=== PATIENT | male | born 1935 | race Caucasian/White ===

== ENCOUNTER 2016-07-29 13:07 | Emergency (ER) | payer OTHER, MEDICARE ==
[~2016-07-29] VITALS: Ht 182.9 cm; Wt 90.7 kg
[~2016-07-29 13:07] MED LIST: AMLODIPINE BES2.5 M1 PO; ASPIRIN EC81 M1 PO; BACTRIM DS TAB1 EACH PO; DEXTROAMP-AMPHE10 MG PO; LORAZEPAM0.5 M1 PO; METOPROLOL SUCC25 M1 PO; PRAVASTATIN SOD40 M2 PO; TAMSULOSIN HCL0.4 M1 PO; VENLAFAXINE HCL75 M1 PO; ZYPREXA2.5 M1 PO; [UNRECOGNIZED DRUG - OTHER] PO
--- NOTE | 2016-07-29 13:30 | ED GENERAL ADULT ---
History of Present Illness General Chief Complaint: Psychiatric Related Complaint Stated Complaint: BIBA FOR PSYCH EVAL Source: patient Exam Limitations: clinical condition, poor historian Vital Signs & Intake/Output Vital Signs & Intake/Output Vital Signs Date Time Temp Pulse Resp B/P Pulse O2 O2 Flow FiO2 Ox Delivery Rate 07/30 0858 97.0 79 18 117/56 95 Room Air 07/30 0610 97.0 93 18 110/70 94 Room Air 07/30 0147 98.9 79 20 132/66 94 Room Air 07/29 2321 99.4 75 20 174/99 95 Room Air 07/29 2003 98.2 79 18 149/74 96 Room Air 07/29 1637 97.8 78 18 144/82 96 Room Air 07/29 1312 98.6 62 18 132/68 97 Room Air ED Intake and Output 07/30 0000 07/29 1200 Intake Total 0 Output Total Balance 0 Intake, Oral 0 Patient 200 lb Weight Allergies Coded Allergies: No Known Allergies (11/30/15) Triage Note: BIBA FROM HOME, PER EMS AND PD, PT IS DEPRESSED, STATES, "I WANT TO KILL MYSELF". "I DONT WANT TO LUVE". REFUSES TO ANSWER QUESTIONS AT THIS TIME. LAYING ON STRETCHER IN POSITION WITH EYES CLOSED. PER EMS PT HAS NOT BEEN TAKING HIS MEDICATIONS FOR THE PAST FEW DAYS. PT CONFIRMS THIS. PLACED ON A PEER BY SERGIO HINSON. Triage Nurses Notes Reviewed? yes Onset: Abrupt Duration: unknown duration Injury Environment: home No Modifying Factors: none HPI: 80-year-old male brought in by ambulance from home for increased failure to thrive depression and suicidal ideation. Patient does not offer much information at all. Patient is laying on the stretcher and refusing to answer certain basic questions. Patient did say that he had some thoughts of wanting to hurt himself. No plan. Patient has been feeling depressed. Patient denies any pain. Specifically patient denies any nausea vomiting abdominal pain chest pain shortness of breath. (CANDELARIO CORDOBA) Reconcile Medications Amlodipine Besylate 2.5 MG TABLET 1 TAB PO DAILY HTN (Reported) Aspirin (Ecotrin*) 81 MG TABLET.DR 1 TAB PO DAILY HEART/BLOOD (Reported) Lorazepam 0.5 MG TABLET 1 TAB PO TIDPRN PRN ANXIETY (Reported) Metoprolol Succinate 25 MG TAB 1 TAB PO DAILY HEART/BP (Reported) Olanzapine (Zyprexa) 2.5 MG TABLET 1 TAB PO QPM MOOD D/O (Reported) Pravastatin Sodium 40 MG TABLET 1 TAB PO DAILY CHOLESTEROL (Reported) Tamsulosin HCl 0.4 MG CAP.ER.24H 1 CAP PO DAILY BPH (Reported) Venlafaxine HCl (Venlafaxine HCl ER) 75 MG CAP.ER.24H 1 CAP PO DAILY MENTAL HEALTH (Reported) (ERWIN GREEN,CESAR) Past History Travel History Traveled to [place] past 21 day No Medical History Any Pertinent Medical History? see below for history Cardiovascular: CHF, hypertension, HIGH CHOLESTEROL Renal: chronic kidney disease Psychiatric: MDD BIPOLAR? History of MRSA: No History of VRE: No History of CDIFF: No Surgical History Surgical History: CARDIAC STENT Psychosocial History Who do you live with Spouse Services at Home None What is your primary language Sinhala Tobacco Use: Never used ETOH Use: denies use Family History Hx Contributory? No (CANDELARIO CORDOBA) Review of Systems Review of Systems Constitutional: Reports: no symptoms. EENTM: Reports: no symptoms. Respiratory: Reports: no symptoms. Cardiovascular: Reports: no symptoms. GI: Reports: no symptoms. Genitourinary: Reports: no symptoms. Musculoskeletal: Reports: no symptoms. Skin: Reports: no symptoms. Neurological/Psychological: Reports: see HPI. Hematologic/Endocrine: Reports: no symptoms. Immunologic/Allergic: Reports: no symptoms. All Other Systems: Reviewed and Negative (CANDELARIO CORDOBA) Physical Exam Physical Exam General Appearance: no apparent distress, awake Head: atraumatic Eyes: Bilateral: normal appearance, EOMI. Ears, Nose, Throat: normal pharynx, normal ENT inspection, hearing grossly normal Neck: normal inspection Respiratory: normal breath sounds, no respiratory distress Cardiovascular: regular rate/rhythm Gastrointestinal: soft, non-tender Back: normal inspection Extremities: normal inspection, normal range of motion Neurologic/Psych: awake, alert, depressed affect Skin: intact, normal color Core Measures ACS in differential dx? No CVA/TIA Diagnosis: No Severe Sepsis Present: No Septic Shock Present: No (CANDELARIO CORDOBA) Progress Differential Diagnoses I considered the following diagnoses in my evaluation of the patient: Depression, anxiety, bipolar, psychosis, acute renal failure, , [place], sepsis, UTI, Plan of Care: Orders Procedure Date/time Status Heart Healthy Diet 07/30 B Active Add-on Test (ER Only) 07/29 1452 Active URINE DRUGS OF ABUSE 07/29 1452 Complete ED CRISIS PSYCH CONSULT 07/29 1452 Active ETHANOL 07/29 1404 Complete Continuous Observation Monitor 07/29 1329 Active URINALYSIS 07/29 1329 Complete TROPONIN LEVEL 07/29 1329 Complete COMPREHENSIVE METABOLIC PANEL 07/29 1329 Complete CBC WITHOUT DIFFERENTIAL 07/29 1329 Complete EKG 07/29 1329 Active Laboratory Tests 07/29/16 1732: Urine Opiates Screen < 100.00, Methadone Screen < 40, Barbiturate Screen < 60, Ur Phencyclidine Scrn < 6.00, Amphetamines Screen < 100, U Benzodiazepines Scrn < 85, Urine Cocaine Screen < 50, Urine Cannabis Screen < 5.00, Urine Color YEL, Urine Clarity CLEAR, Urine pH 6.0, Ur Specific [place] 1.020, Urine Protein TRACE H, Urine Ketones NEG, Urine Nitrite NEG, Urine Bilirubin NEG, Urine Urobilinogen 0.2, Ur Leukocyte Esterase NEG, Ur Microscopic SEDIMENT EXAMINED, Urine RBC RARE, Urine WBC RARE, Ur Epithelial Cells RARE, Urine Hemoglobin NEG, Urine Glucose NEG 07/29/16 1404: Anion Gap 7, Estimated GFR 42 L, BUN/Creatinine Ratio 15.0, Glucose 119 H, Calcium 9.0, Total Bilirubin 0.7, AST 26, ALT 39, Alkaline Phosphatase 80, Troponin I < 0.01, Total Protein 6.4, Albumin 3.6, Globulin 2.8, Albumin/ Globulin Ratio 1.3, CBC w Diff NO MAN DIFF REQ, RBC 4.33 L, MCV 88.5, MCH 29.7, RDW 13.4, MPV 8.4, Gran % 65.4, Lymphocytes % 23.0, Monocytes % 7.1, Eosinophils % 3.9, Basophils % 0.6, Absolute Granulocytes 3.8, Absolute Lymphocytes 1.3, Absolute Monocytes 0.4, Absolute Eosinophils 0.2, Absolute Basophils 0, PUBS MCHC 33.6, Serum Alcohol < 10.0 Initial ED EKG: normal p-waves, normal sinus rhythm, rate (77) Hand-Off Endorsed To: CESAR HOOD MD Endorsed Time: 2344 (CANDELARIO CORDOBA) Hand-Off Endorsed To: STACIE MIKE MD Endorsed Time: 0700 Pending: consult (CRISIS) (ERWIN GREEN,CESAR) Comments: Cleared by psychiatry for discharge (STACIE MIKE MD) Departure Departure Clinical Impression Primary Impression: Major depression Secondary Impressions: Suicidal ideation Referrals: Gregg LOPEZ MD (PCP/Family) Departure Forms: Customer Survey General Discharge Information (CANDELARIO CORDOBA) Departure Time of Disposition: 1040 Disposition: HOME OR SELF CARE Condition: Stable Additional Instructions: Follow up with the recommendations of the tension worker (STACIE MIKE MD) Critical Care Note Critical Care Note Critical Care Time: non-applicable (CANDELARIO CORDOBA)
[2016-07-29 14:15] LABS: ABSOLUTE BASOPHIL COUNT 0 /CUMM (0.0-0.2); ABSOLUTE EOSINOPHIL COUNT 0.2 /CUMM (0.0-0.7); ABSOLUTE GRANULOCYTE CT 3.8 /CUMM (1.4-6.5); ABSOLUTE LYMPH COUNT 1.3 /CUMM (1.2-3.4); ABSOLUTE MONOCYTE COUNT 0.4 /CUMM (0.10-0.60); BASOPHIL % 0.6 % (0.0-2.0); EOSINOPHIL % 3.9 % (0-5); GRANULOCYTE % 65.4 % (42.2-75.2); HEMATOCRIT 38.3 % (42-52); MEAN CORPUSCULAR HGB 29.7 PG (27.0-31.0); MEAN CORPUSCULAR HGB CONC 33.6 G/DL (33.0-37.0); MEAN CORPUSCULAR VOLUME 88.5 FL (80.0-94.0); MEAN PLATELET VOLUME 8.4 FL (7.4-10.4); PLATELET COUNT 134 /CUMM (130-400); RBC DISTRIBUTION WIDTH 13.4 % (11.5-14.5); RED BLOOD CELL CT 4.33 /CUMM (4.70-6.10); WHITE BLOOD CELL COUNT 5.8 /CUMM (4.8-10.8)
--- NOTE | 2016-07-29 14:23 | RADIOLOGY REPORT ---
EXAMINATION: XR CHEST CLINICAL INFORMATION: Altered mental status, fever, failure to thrive. COMPARISON: Multiple priors, most recent chest radiograph dated 11/30/2015. TECHNIQUE: AP and lateral views of the chest were obtained. FINDINGS: The lungs are clear. There is mild cardiomegaly. There is no pleural effusion or pneumothorax. There are mild degenerative changes within the visualized lower thoracic spine. IMPRESSION: No acute cardiopulmonary disease. Stable mild cardiomegaly.
--- NOTE | 2016-07-29 15:26 | ED PSY CRISIS COLLATERAL NOTE ---
Collateral Note Collateral Note Family/Inform/Leslie Contacts: T/C to pts son Mario Lainez ([phone]), left a voice mail requesting a return call. T/C to pts alem Candelario who stated she lives with the pt. Ms. Candelario stated she returned home today after 2 weeks in the hospital and found the pt lying in bed. Ms. Candelario stated the pt would not respond to questions and would not move so she called 911. Ms. Candelario stated the pt is severely depressed but she is not aware of any SI. Ms. Candelario stated the pts daughter visited the pt yesterday. T/C to the pts daughter Charmaine Munoz at [phone], left a voice mail requesting a return call. Tried the pts daughter at [phone], no answer and the mailbox is full.
--- NOTE | 2016-07-29 22:58 | ED PSY CRISIS COLLATERAL NOTE ---
Collateral Note Collateral Note Family/Inform/Leslie Contacts: Phone contact with Charmaine [phone]. She reports the pt has a long psychiatric history of severe depression. "For the past two weeks, I've seen my father everyday" "he is not functiioning". However, Ms. Munoz reports her father has never made an attempt to kill himself. She state he is very depressed and has been in multiple inpatient hospitals over the years and has had Electroshock therapy treatments. Ms. Munoz is requesting that the pt be admitted for inpatient psychiatric treatment. Ms. Munoz got very angry that her father was not seen today for an evaluation.
--- NOTE | 2016-07-30 10:17 | ED PSYCH CRISIS CONSULTATION ---
Crisis Consult Basic Assessment Date of Consult: 07/30/16 Responsible Person/Accompanied By: self Insurance Authorization: Insurance #1: Insurance name: MEDICARE A Phone number: Policy number: [id number] Group number: Authorization number: ED Provider: Patient's ED Provider: CANDELARIO CORDOBA Primary Care Physician: Patient's PCP: Gregg LOPEZ MD PCP's Current Psychiatrist: Dr. Trip Smith Chief Complaint: Psychiatric Related Complaint Patient's Quote: "These pills tire me out, I want to get off them" Present Illness: Pt. was a 80 year old caucausian male who was brought to the ED by family members who were concerned for his well being when he would not get out of bed. Pt. was unclear on what day it was or what day he was brought here. He stated several times "I have been here since Sunday, no Sunday, no Sunday". Pt. arrived at the ED on Sunday afternoon. Pt. appeared to have some symtpoms of dementia. Pt.'s major complaint was his "pills" causing him to feel sleepy much of the time. He reported psychiatric treatment with Dr. Trip Smith in [place], [place], who he sees "once every 4-5 weeks for therapy and medication management". Pt. was unsure of his next scheduled appointment. Pt. denied any past or current SI, stating that "sometimes he thinks about killing himself when he realizes he has to take meds and doesn't want to". Pt. requested "a shave" from ED staff and was told that he would have to wait until he went home to [facility]. Patient's Address: [address] [place] [address] Other Who Do You Live With? Spouse Family/Informants Interviewed: See Collateral Notes Allergies - Coded Allergies: No Known Allergies (11/30/15) Current Medications - Scheduled Medications Amlodipine Besylate 2.5 MG TABLET 1 TAB PO DAILY HTN #30 (Reported) Entered as Reported by JONES CHANG MD on 02/21/16 0009 Aspirin (Ecotrin*) 81 MG TABLET.DR 1 TAB PO DAILY HEART/BLOOD (Reported) Entered as Reported by RENETTA MADERA on 11/30/151937 Metoprolol Succinate 25 MG TAB 1 TAB PO DAILY HEART/BP #30 (Reported) Entered as Reported by RENETTA MADERA on 11/30/151935 Olanzapine (Zyprexa) 2.5 MG TABLET 1 TAB PO QPM MOOD D/O #30 (Reported) Entered as Reported by JONES CHANG MD on 02/21/169 Pravastatin Sodium 40 MG TABLET 1 TAB PO DAILY CHOLESTEROL #30 (Reported) Entered as Reported by RENETTA MADERA on 11/30/151936 Tamsulosin HCl 0.4 MG CAP.ER.24H 1 CAP PO DAILY BPH #90 (Reported) Entered as Reported by JONES CHANG MD on 02/21/169 Venlafaxine HCl (Venlafaxine HCl ER) 75 MG CAP.ER.24H 1 CAP PO DAILY MENTAL HEALTH #30 (Reported) Entered as Reported by RENETTA MADERA on 11/30/151935 Scheduled PRN Medications Lorazepam 0.5 MG TABLET 1 TAB PO TIDPRN PRN ANXIETY #30 (Reported) Entered as Reported by RENETTA MADERA on 11/30/151935 Laboratory Results: Laboratory Tests 07/29/16 1732: Urine Opiates Screen < 100.00, Methadone Screen < 40, Barbiturate Screen < 60, Ur Phencyclidine Scrn < 6.00, Amphetamines Screen < 100, U Benzodiazepines Scrn < 85, Urine Cocaine Screen < 50, Urine Cannabis Screen < 5.00, Urine Color YEL, Urine Clarity CLEAR, Urine pH 6.0, Ur Specific [place] 1.020, Urine Protein TRACE H, Urine Ketones NEG, Urine Nitrite NEG, Urine Bilirubin NEG, Urine Urobilinogen 0.2, Ur Leukocyte Esterase NEG, Ur Microscopic SEDIMENT EXAMINED, Urine RBC RARE, Urine WBC RARE, Ur Epithelial Cells RARE, Urine Hemoglobin NEG, Urine Glucose NEG 07/29/16 1404: Anion Gap 7, Estimated GFR 42 L, BUN/Creatinine Ratio 15.0, Glucose 119 H, Calcium 9.0, Total Bilirubin 0.7, AST 26, ALT 39, Alkaline Phosphatase 80, Troponin I < 0.01, Total Protein 6.4, Albumin 3.6, Globulin 2.8, Albumin/ Globulin Ratio 1.3, CBC w Diff NO MAN DIFF REQ, RBC 4.33 L, MCV 88.5, MCH 29.7, RDW 13.4, MPV 8.4, Gran % 65.4, Lymphocytes % 23.0, Monocytes % 7.1, Eosinophils % 3.9, Basophils % 0.6, Absolute Granulocytes 3.8, Absolute Lymphocytes 1.3, Absolute Monocytes 0.4, Absolute Eosinophils 0.2, Absolute Basophils 0, PUBS MCHC 33.6, Serum Alcohol < 10.0 Past History Past Medical History Cardiovascular: CHF, hypertension, HIGH CHOLESTEROL Renal: chronic kidney disease Psychiatric: MDD BIPOLAR? Past Surgical History Surgical History: CARDIAC STENT Psychosocial History Strengths/Capabilities: Pt. has psychiatric treatment in the community Psychiatric Treatment History Psych Treatment Psychiatric Treatment Yes Inpatient Treatment Yes Outpatient Treatment Yes Location of Treatment Dr. Trip Smith, [place] Reason for Treatment Depression Dates of Treatment Various Diagnosis by History: Depression Substance Use/Abuse History Drug Use/Abuse Substances Used/Abused No Substance Abuse Treatment Substance Abuse Treatment Past Substance Abuse [place] No Current Mental Status Mental Status Orientation: Confused Affect: Flat Speech: Soft Neuro-vegetative: Concentration Poor, Energy Decreased Appearance Appearance- Dress/Hygiene: laying back in hospital gown on bed, elderly gentleman Behaviors Thought Process: Disorganized Thought Content: WNL Memory: Impaired Insight: Poor SI/HI Risk Assessment Past Suicidal Ideation/Attempts Yes Current Suicidal Ideation/Att No Past Homicidal Ideation/Att: No Current Homicidal Ideation/Attempts No Degree of Intent: Thoughts/No Intent Danger To: none currently Gravely Disabled: Lack of Insight, Poor Judgment Risk Factors: age (under 24/over 65), high anxiety/distress, history of suicide atmpts, SA/MH hospitalized, male Lethality Ratin PTSD Checklist PTSD Score: PTSD Score: Response Value Disturbing memories,thoughts,images of stressful experience? Not at all 1 Disturbing dreams of stressful experience from past? Not at all 1 Suddenly acting/feeling as if reliving stressful experience? Not at all 1 Unpleasant feeling when reminded of stressful experience? Not at all 1 Physical reactions when reminded of stressful experience? Not at all 1 Avoid thinking/talking of stressful exp. to avoid reactions? Not at all 1 Avoid activities/situations that remind of stressful exp.? Not at all 1 Trouble remembering important parts of stressful experience? Quite a bit 4 Loss of interest in things that you used to enjoy? Not at all 1 Feeling distant or cut off from other people? Not at all 1 Feeling emotionally numb/unable to love those close to you? Not at all 1 Feeling as if your future will somehow be cut short? Not at all 1 Trouble falling or staying asleep? Not at all 1 Feeling irritable or having angry outbursts? Not at all 1 Having difficulty concentrating? Not at all 1 Being super alert or watchful on guard? Not at all 1 Feeling jumpy or easily startled? Not at all 1 Total 20 ED Management Sitter: Yes Restraints: No DSM5/PS Stressors/Medical Prob Diagnosis' (DSM 5, Stressors, Medical): F32.2 Major Depressive Disorder Severe Current GAF: 30 Departure Disposition Psych Medical Clearance Date: 07/30/16 Medically Cleared at: 0945 Time Started: 0945 Time Ended: 1000 Psychiatrist Consulted: Cleo Mcbride MD Date Disposition Established: 07/30/16 Time Disposition Established: 1015 Plan for Disposition - Modality: Outpatient Facility: Patient to Arrange Rationale for Disposition: Pt. denied suicidal ideation. Is in treatment with private psychaitrist. Family is very involved in advocating for father to get appropriate treatment. Pt. has daily home health aide to assist. Will follow up with psychiatrist this week at scheduled appointment. Additional Instructions: Follow up with psychiatrist this week Referrals Gregg LOPEZ MD (PCP/Family)
--- NOTE | 2016-07-30 10:29 | ED PSY CRISIS COLLATERAL NOTE ---
Collateral Note Collateral Note Family/Inform/Leslie Contacts: Phone contact with daughter who stated family "doesn't know what to do anymore". She reported her father has been depressed since he was 41 years old. She reported he was on a good medication regimen before but when he got together with his girlfriend "she changed all his doctors and his meds". Daughter also reported that girlfriend does not normally let her into the house, but that she had been visiting her father for 2 weeks while the girlfriend was in rehab. She stated now that the girlfriend was back, her father was more depressed. She reported her father has a home health aide who visits daily and he has two doctor's appointments this week with his maintenance mechanic technician and with his psychiatrist. Daughter stated that she feels he will not act on any suicidal thoughts if sent home, but it is difficult for her to see him so depressed and in bed all the time.
[2016-07-30 11:01] VITALS: BP 132/71
== END 2016-07-30 11:57 ==
LOC: ERH 13:07
PROVIDERS: Physician Assistant Medical
DX: F32.9 Major depressive disorder, single episode, unspecified (principal); R45.851 Suicidal ideations; I10 Essential (primary) hypertension; I50.9 Heart failure, unspecified; N18.9 Chronic kidney disease, unspecified
CPT/HCPCS: 80307; 81001; 93005; 93010; G0463; G0480

== ENCOUNTER 2016-11-27 18:49 | Observation (INO) | payer OTHER, MEDICARE ==
[2016-11-27 19:10] LABS: ABSOLUTE BASOPHIL COUNT 0 /CUMM (0.0-0.2); ABSOLUTE EOSINOPHIL COUNT 0.2 /CUMM (0.0-0.7); ABSOLUTE GRANULOCYTE CT 5.4 /CUMM (1.4-6.5); ABSOLUTE LYMPH COUNT 1.2 /CUMM (1.2-3.4); ABSOLUTE MONOCYTE COUNT 0.4 /CUMM (0.10-0.60); BASOPHIL % 0.2 % (0.0-2.0); EOSINOPHIL % 2.6 % (0-5); GRANULOCYTE % 75.2 % (42.2-75.2); HEMATOCRIT 37.2 % (42-52); MEAN CORPUSCULAR HGB 29.7 PG (27.0-31.0); MEAN CORPUSCULAR HGB CONC 33.6 G/DL (33.0-37.0); MEAN CORPUSCULAR VOLUME 88.4 FL (80.0-94.0); MEAN PLATELET VOLUME 8.1 FL (7.4-10.4); PLATELET COUNT 143 /CUMM (130-400); RBC DISTRIBUTION WIDTH 13.4 % (11.5-14.5); RED BLOOD CELL CT 4.21 /CUMM (4.70-6.10); WHITE BLOOD CELL COUNT 7.2 /CUMM (4.8-10.8)
--- NOTE | 2016-11-27 19:11 | ED GI/GU/ABDOMINAL COMPLAINT ---
History of Present Illness General Chief Complaint: Nausea, Vomiting, Diarrhea Stated Complaint: N/V/D Source: patient Exam Limitations: no limitations Vital Signs & Intake/Output Vital Signs & Intake/Output Vital Signs Date Time Temp Pulse Resp B/P B/P Pulse O2 O2 Flow FiO2 Mean Ox Delivery Rate 11/28 0752 96.1 61 20 129/80 97 Room Air 11/28 0516 95.0 62 18 133/79 96 Room Air 11/27 1909 98.7 67 18 154/82 95 Room Air ED Intake and Output 11/28 0000 11/27 1200 Intake Total 500 Output Total Balance 500 Intake, IV 500 Intake, Oral 0 Allergies Coded Allergies: No Known Allergies (11/30/15) Reconcile Medications Amlodipine Besylate 2.5 MG TABLET 1 TAB PO DAILY HTN (Reported) Aspirin (Ecotrin*) 81 MG TABLET.DR 1 TAB PO DAILY HEART/BLOOD (Reported) Lorazepam 0.5 MG TABLET 1 TAB PO TIDPRN PRN ANXIETY (Reported) Metoprolol Succinate 25 MG TAB 1 TAB PO DAILY HEART/BP (Reported) Olanzapine (Zyprexa) 2.5 MG TABLET 1 TAB PO QPM MOOD D/O (Reported) Pravastatin Sodium 40 MG TABLET 1 TAB PO DAILY CHOLESTEROL (Reported) Tamsulosin HCl 0.4 MG CAP.ER.24H 1 CAP PO DAILY BPH (Reported) Venlafaxine HCl (Venlafaxine HCl ER) 75 MG CAP.ER.24H 1 CAP PO DAILY MENTAL HEALTH (Reported) Triage Nurses Notes Reviewed? yes HPI: Patient presents for evaluation of profuse diarrhea that began about noon today. Patient states the diarrhea has been nearly constant and consisting of a nonbloody watery diarrhea. He denies any associated vomiting, abdominal pain, fever, cold symptoms, recent antibiotics, dysuria, recent travel, ill contacts, medication changes or prior episodes. He denies a history of prior GI bleeds ulcerative colitis or Crohn's disease. Alcohol use is occasional with his last alcoholic beverage yesterday consisting of a "shot of wine". He denies smoking or drug use. (ALCIDES GREEN,TASH Lopez) Past History Medical History Any Pertinent Medical History? see below for history Cardiovascular: CHF, hypertension, HIGH CHOLESTEROL Renal: chronic kidney disease Psychiatric: MDD BIPOLAR? History of MRSA: No History of VRE: No History of CDIFF: No Surgical History Surgical History: CARDIAC STENT Psychosocial History Who do you live with Spouse Services at Home None What is your primary language Greek Family History Hx Contributory? No (ALCIDES GREEN,TASH Lopez) Review of Systems Review of Systems Constitutional: Reports: no symptoms. EENTM: Reports: no symptoms. Respiratory: Reports: no symptoms. Cardiovascular: Reports: no symptoms. GI: Reports: see HPI. Genitourinary: Reports: no symptoms. Musculoskeletal: Reports: no symptoms. Skin: Reports: no symptoms. Neurological/Psychological: Reports: no symptoms. Hematologic/Endocrine: Reports: no symptoms. Immunologic/Allergic: Reports: no symptoms. All Other Systems: Reviewed and Negative (ALCIDES GREEN,TASH Lopez) Physical Exam Physical Exam Gastrointestinal: see below Comments: Gen.: Well-nourished, well-developed, no acute respiratory distress. Head: Normocephalic, atraumatic. Eyes: Normal inspection bilaterally Ears: Normal inspection bilaterally Nose: Normal inspection Throat/mouth : Moist mucosa Neck: Supple, full range of motion, no goiter Heart: Regular rate and rhythm, soft systolic murmur at the left sternal border Lungs: Clear to auscultation bilaterally with normal air entry Chest: Nontender Back: Normal range of motion Abdomen: Soft, nontender, nondistended, normal bowel sounds Extremities: Normal range of motion grossly, equal radial pulses, no cyanosis clubbing or edema, calves nontender Neurologic: Cranial nerves grossly intact, speech is clear Skin: warm and dry Psychiatric: Calm, cooperative, no apparent delusions or hallucinations Core Measures ACS in differential dx? No Severe Sepsis Present: No Septic Shock Present: No (ALCIDES GREEN,TASH Lopez) Progress Differential Diagnosis: c. diff, enteritis, colitis Plan of Care: Orders Procedure Date/time Status Regular Diet 11/28 B Active Discharge Patient 11/28 0802 Active BASIC METABOLIC PANEL 11/28 0500 Complete URINE DRUG SCREEN FOR ER ONLY 11/27 230 Complete URINALYSIS 11/27 2301 Complete PT Evaluate & Treat 11/27 2253 Active Saline Lock 11/[address] in observation 11/28 2251 Active Misc Message 11/28 2251 Active ED Holding Orders 11/28 2251 Active Patient Data 11/28 2251 Active Vital Signs 11/28 2251 Active Code Status 11/28 2251 Active Add-on Test (ER Only) 05/29 1911 Active CULTURE,STOOL 11/27 1910 Active C.DIFFICILE 11/27 1910 Active Intake & Output 11/28 1907 Active THYROID STIMULATING HORMONE 11/28 1903 Complete TROPONIN LEVEL 11/27 1902 Complete COMPREHENSIVE METABOLIC PANEL 11/27 1902 Complete CBC WITHOUT DIFFERENTIAL 11/27 1902 Complete EKG 11/27 1902 Active Laboratory Tests 11/28/16 0520: Urine Opiates Screen < 100.00, Methadone Screen < 40, Barbiturate Screen < 60, Ur Phencyclidine Scrn < 6.00, Amphetamines Screen < 100, U Benzodiazepines Scrn < 85, Urine Cocaine Screen < 50, Urine Cannabis Screen < 5.00, Urine Color YEL, Urine Clarity CLEAR, Urine pH 6.0, Ur Specific [place] 1.010, Urine Protein NEG, Urine Ketones NEG, Urine Nitrite NEG, Urine Bilirubin NEG, Urine Urobilinogen 0.2, Ur Leukocyte Esterase NEG, Ur Microscopic EXAM NOT REQUIRED, Urine Hemoglobin NEG, Urine Glucose NEG 11/28/16 0515: Anion Gap 6, Estimated GFR 39 L, BUN/Creatinine Ratio 14.7, Glucose 85, Calcium 8.1 L 11/27/161903: Anion Gap 13, Estimated GFR 31 L, BUN/Creatinine Ratio 13.3, Glucose 104 H, Calcium 8.6, Total Bilirubin 0.4, AST 26, ALT 44, Alkaline Phosphatase 75, Troponin I 0.02, Total Protein 6.6, Albumin 3.9, Globulin 2.7, Albumin/Globulin Ratio 1.4, TSH 0.380, CBC w Diff NO MAN DIFF REQ, RBC 4.21 L, MCV 88.4, MCH 29.7, RDW 13.4, MPV 8.1, Gran % 75.2, Lymphocytes % 16.6 L, Monocytes % 5.4, Eosinophils % 2.6, Basophils % 0.2, Absolute Granulocytes 5.4, Absolute Lymphocytes 1.2, Absolute Monocytes 0.4, Absolute Eosinophils 0.2, Absolute Basophils 0, PUBS MCHC 33.6 Microbiology 11/27 1910 STOOL: Clostridium difficile Toxin A & B - COLB 11/27 1910 STOOL: Stool Culture - COLB Initial ED EKG: NSR, rate (67), LAFB Prior EKG: unchanged Comments: 20:35 I have updated Farhan on his test results. He now complains of a severe sharp occipital headache that began yesterday and has been constant since onset. His neck remains supple. He states he typically does not get headaches. I have ordered IV acetaminophen and a head CT scan. Patient's physical exam at this point remains unchanged. He has had no diarrhea here in the emergency department. 20:55 patient signed out to Dr. Escoto at shift microsoft exchange administrator. (ALCIDES GREEN,TASH Lopez) Hand-Off Endorsed To: CESAR HOOD MD Endorsed Time: 0700 Pending: consult, labs (BAYRON ESCOTO MD) Departure Departure Condition: Stable Clinical Impression Primary Impression: Diarrhea Referrals: Gregg LOPEZ MD (PCP/Family) Departure Forms: Customer Survey General Discharge Information (TASH MCGRATH MD) Departure Comments 11/27/16, 23:00... pt declines ct scan. PA/ALUMINUM POOL INSTALLER Co-Sign Statement Statement: ED Attending supervision documentation- [x] I saw and evaluated the patient. I have also reviewed all the pertinent lab results and diagnostic results. I agree with the findings and the plan of care as documented in the PA's/ALUMINUM POOL INSTALLER's documentation. [] I have reviewed the ED Record and agree with the PA's/ALUMINUM POOL INSTALLER's documentation. [] Additions or exceptions (if any) to the PAs/ALUMINUM POOL INSTALLER's note and plan are summarized below: [] (BAYRON ESCOTO MD) Departure Time of Disposition: 0802 Disposition: HOME OR SELF CARE Additional Instructions: Make sure to drink fluids as we discussed. Your urine should appear light yellow to clear. Make sure you follow-up with your doctor in the office. Return as needed. (CESAR HOOD MD) ED Attending Observation Initial Observation Note: I have seen and personally examined FARHAN ANGULO on 11/27/16 at 2255. I agree with the current emergency department documentation. The disposition (admission or discharge) is uncertain at this time, he needs a period of observation for the following reason(s): pt with elevated creatinine, difficulty ambulating.... will receive iv fluids overnight and then recheck bun/ cr. Case management and PT consult in AM. The ED Nurse caring for this patient has been personally informed as to what the patient is being observed for. (BAYRON ESCOTO MD) Initial Observation Note: I have seen and personally examined FARHAN ANGULO on 11/28/16 at 0728. I agree with the current emergency department documentation. The disposition (admission or discharge) is uncertain at this time, he needs a period of observation for the following reason(s): The ED Nurse caring for this patient has been personally informed as to what the patient is being observed for. Observation Re-Evaluation: I have reevaluated FARHAN ANGULO on 11/28/16 at 0728. The physical findings that support the continued need to observe this patient include [PATIENT RESTING COMFORTABLY. WILL EVALUATE AFTER EATING BREAKFAST.]. 11/28/2016 7:55:07 AM Patient awake alert and oriented. He is up and drink coffee. Refuses to eat breakfast but wanted to go home at this time. We will call his daughter. I encouraged him to drink plenty of fluids at home. Repeat creatinine is 1.7 after IV hydration. Baseline is around 1.4-1.6. (ERWIN GREEN,CESAR)
--- NOTE | 2016-11-27 19:49 | NUR ---
TRIAGE NOTE VIA JENNIFER BLACKMAN: PT BIBA FROM HOME FOR WEAKNESS, DIARRHEA, AND HEADACHE FOR 2 DAYS. PT DENIES ABD PAIN, DENES BLOOD IN STOOL. PT STATES HE HAS A HEADACHE.
--- NOTE | 2016-11-27 20:55 | NUR ---
PT MEDICATED WITH OFIRMEV PER EMAR.
--- NOTE | 2016-11-27 21:02 | NUR ---
PT TO AND FROM CAT SCAN AT THIS TIME.
--- NOTE | 2016-11-27 21:08 | CT SCAN REPORT ---
EXAMINATION: CT HEAD WITHOUT CONTRAST CLINICAL INFORMATION: Occipital headache. COMPARISON: Head CT dated 02/20/2016. TECHNIQUE: Contiguous axial imaging was performed from the skull base to vertex without intravenous administration of contrast. DLP: 643.3 mGy-cm FINDINGS: There is no evidence of acute intracranial hemorrhage or territorial infarction. No abnormal mass effect or midline shift is seen. Alan to white matter differentiation is well preserved. No extra-axial fluid collections are identified. 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 The ventricles are normal in size. Mild chronic white matter microangiopathic changes are noted with moderate diffuse parenchymal volume loss. The osseous structures and soft tissues are normal. The mastoid air cells and visualized portions of the paranasal sinuses are well aerated. IMPRESSION: No acute intracranial pathology. Mild chronic white matter microangiopathy and moderate generalized brain parenchymal volume loss.
--- NOTE | 2016-11-27 22:11 | NUR ---
PT RESTING ON STRETCHER.
--- NOTE | 2016-11-27 22:49 | NUR ---
DR HERNANDEZ AT BEDSIDE.
--- NOTE | 2016-11-27 22:52 | NUR ---
RENÉ FROM CAT SCAN AT BEDSIDE. PT REFUSING TO GO TO CAT SCAN. PT EDUCATED ON BENEFITS OF SCAN. PT CONTINUES TO REFUSE CAT SCAN. DR HERNANDEZ MADE AWARE.
--- NOTE | 2016-11-27 22:55 | NUR ---
PER DR HERNANDEZ, PT WILL BE ED OBS.
--- NOTE | 2016-11-28 00:28 | NUR ---
PT RESTING COMFORTABLY ON STRETCHER, WILL CONTINUE TO MONITOR.
--- NOTE | 2016-11-28 03:27 | NUR ---
PT CONTINUES TO REST QUIETLY ON STRETCHER. PT DENIES ANY COMPLAINTS AT THIS TIME. WILL CONTINUE TO MONITOR.
--- NOTE | 2016-11-28 04:32 | NUR ---
PT RESTING ON STRETCHER. LIGHTS IN ROOM DIMMED FOR COMFORT. WILL CONTINUE TO MONITOR.
--- NOTE | 2016-11-28 05:17 | NUR ---
APPROX 580ML CLEAR YELLOW URINE IN BEDSIDE URINAL, URINE SPECIMEN (TRIO) OBTAINED AND SENT TO LAB. BLOODWORK OBTAINED AND SENT TO LAB BY JORGE RODRIGUEZ (SST X2). VSS. PATIENT REPORTS [place] PAIN IMPROVED, DENIES PAIN AT PRESENT. PATIENT NOTED TO HAVE REMOVED GOWN FROM OWN BODY, REPORTS "I DIDN'T WANT IT ON." PATIENT NOW REPORTING, "I'M COLD." NEW GOWN APPLIED. PATIENT ASSISTED TO BEDSIDE COMMODE FOR ATTEMPT TO BM AT THIS TIME.
--- NOTE | 2016-11-28 05:41 | NUR ---
PT EXPERIENCED SMALL BOWEL MOVEMENT. PT ALSO URINATED APPROX. 300 ML OF CLEAR YELLOW URINE. PT ASSISTED TO PUT GOWN BACK ON. PT ASSISTED BACK TO BED AND REPOSITIONED. PT REQUESTS CUP OF WATER, WATER GIVEN. WILL CONTINUE TO MONITOR.
--- NOTE | 2016-11-28 07:13 | NUR ---
REPORT GIVEN TO JENNIFER CASE.
--- NOTE | 2016-11-28 07:51 | NUR ---
PT SITTING UP, DRINKING COFFEE, DECLINING BREAKFAST TRAY. STATES HE FEELS BETTER AND WOULD LIKE TO GO HOME. WILL CALL PT'S DAUGHTER.
--- NOTE | 2016-11-28 07:55 | NUR ---
SPOKE WITH PT'S DAUGHTER, SHE WILL BE HERE SHORTLY TO RIB PULLER HER DAD. PT DRESSED, SITTING UP.
--- NOTE | 2016-11-28 08:52 | NUR ---
PT CONTINUES TO AWAIT DAUGHTER FOR A RIDE HOME. RESTING ON STRETCHER. Informed waiting has been performed.
--- NOTE | 2016-11-28 09:41 | NUR ---
PT CALLED HIS DAUGHTER, NO ANSWER.
[2016-11-28 09:57] VITALS: BP 120/80
--- NOTE | 2016-11-28 09:57 | NUR ---
DAUGHTER HERE TO SENIOR ORACLE APPLICATIONS DEVELOPER HER FATHER. CLEARED FOR D/C. PT GIVEN AND VERBALIZED UNDERSTANDING OF INSTRUCTIONS. PT AMB OUT OF ED WITH DAUGHTER.
== END 2016-11-28 09:58 ==
LOC: ERH 18:49 → ERHI 22:52
PROVIDERS: Emergency Medicine; ADMIT Pediatrics
DX: F33.9 Major depressive disorder, recurrent, unspecified (principal); G20 Parkinson's disease; I13.0 Hypertensive heart and chronic kidney disease with heart failure and stage 1 through stage 4 chronic kidney disease, or unspecified chronic kidney disease; N18.9 Chronic kidney disease, unspecified; I50.9 Heart failure, unspecified; E78.00 Pure hypercholesterolemia, unspecified; R41.0 Disorientation, unspecified; R42 Dizziness and giddiness
CPT/HCPCS: 6090; 80307; 81003; 87045; 93005; 93010; 96374; G0378; J0131; J7040

== ENCOUNTER 2016-12-03 13:09 | Inpatient (IN) | payer OTHER, MEDICARE ==
[~2016-12-03] VITALS: Ht 182.9 cm; Wt 97.5 kg
--- NOTE | 2016-12-03 13:18 | NUR ---
SEEN BY DR MIKE. WHEN ASKED WHY HE CAME IN, STATES "I WAS DISORIENTED, I DIDN'T KNOW WHERE I WAS." WHEN ASKED WHERE HE WAS WHEN HE FELT THIS WAY HE STATES "I WAS AT HOME." SR 70S ON MONITOR. DENIES CP/SOB/N/V/D/FEVERS/FALLS/TRAUMA.
--- NOTE | 2016-12-03 13:18 | NUR ---
BIBA FROM HOME C/O "FEELING DISORIENTED" XMONTHS PER PT, PER EMS FAMILY STATING 2-3 DAYS OF "CONFUSION." PT C/O DISORIENTATION BUT ANSWERED QUESTIONS APPROPRIATLY/FOLLOWED COMMANDS FOR EMS AND ON ARRIVAL WITHOUT ANY DISORIENTATION. NO NEURO DEFECITS, C/O INTERMITTANT DIZZINESS, C/O HEADACHE AND ASKING LIGHTS BE TURNED OFF.
--- NOTE | 2016-12-03 13:35 | NUR ---
PCXR DONE, BLOOD SENT (SST/LAV/BLUE/REAL), PT TO CT ON STRETCHER. SCOP PATCH APPLIED BEHIND RIGHT EAR. PT MAKING CASUAL CONVERSATION WITH PUBLIC SPEAKING PROFESSOR, DISCUSSING HIS BACKGROUND.
[2016-12-03] MEDS ORDERED: AMLODIPINE BESY10 M1 PO (13:38)
[2016-12-03] MEDS ORDERED: HYDRALAZINE HCL25 M1 PO (13:40)
[2016-12-03] MEDS ORDERED: FUROSEMIDE20 M1 PO (13:40)
[2016-12-03] MEDS ORDERED: DIOVAN40 MG PO (13:41)
--- NOTE | 2016-12-03 13:50 | NUR ---
RETURNED FROM CT, RESTING ON STRETCHER, NO COMPLAINTS. AWAITING RESULTS.
[2016-12-03 14:05] LABS: ABSOLUTE BASOPHIL COUNT 0 /CUMM (0.0-0.2); ABSOLUTE EOSINOPHIL COUNT 0.2 /CUMM (0.0-0.7); ABSOLUTE GRANULOCYTE CT 3.7 /CUMM (1.4-6.5); ABSOLUTE LYMPH COUNT 1.4 /CUMM (1.2-3.4); ABSOLUTE MONOCYTE COUNT 0.3 /CUMM (0.10-0.60); BASOPHIL % 0.3 % (0.0-2.0); EOSINOPHIL % 3.4 % (0-5); GRANULOCYTE % 66.2 % (42.2-75.2); HEMATOCRIT 38.1 % (42-52); MEAN CORPUSCULAR HGB 29.5 PG (27.0-31.0); MEAN CORPUSCULAR VOLUME 89.4 FL (80.0-94.0); MEAN PLATELET VOLUME 8.6 FL (7.4-10.4); PLATELET COUNT 133 /CUMM (130-400); RBC DISTRIBUTION WIDTH 13.7 % (11.5-14.5); RED BLOOD CELL CT 4.26 /CUMM (4.70-6.10); WHITE BLOOD CELL COUNT 5.6 /CUMM (4.8-10.8)
--- NOTE | 2016-12-03 14:13 | CT SCAN REPORT ---
EXAMINATION: CT HEAD WITHOUT CONTRAST CLINICAL INFORMATION: CVA, dizziness, confusion COMPARISON: 11/27/2016 CT scan of head TECHNIQUE: Contiguous axial imaging was performed from the skull base to vertex without intravenous administration of contrast. DLP: 620.91 mGy-cm FINDINGS: There is no evidence of acute intracranial hemorrhage or territorial infarction. No abnormal mass effect or midline shift is seen. Alan to white matter differentiation is well preserved. No extra-axial fluid collections are identified. The ventricles are normal in size. 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 There are scattered bilateral deep white matter hypodensities, could represent chronic ischemic changes of small vessel disease. Atherosclerotic calcifications of the cavernous parts of internal carotid arteries and intracranial parts of vertebral arteries noted. The osseous structures and soft tissues are normal. The mastoid air cells and visualized portions of the paranasal sinuses are well aerated. Prior right cataract surgery. IMPRESSION: No acute intracranial pathology. Chronic ischemic changes of microangiopathy. Atherosclerosis.
--- NOTE | 2016-12-03 14:22 | NUR ---
CALL TO XRAY REGARDING XRAY NOT PENDING WHEN TAKEN 1 HOUR AGO; XRAY BEING SENT TO RADIOLOGIST NOW.
--- NOTE | 2016-12-03 14:40 | ED AMS/SEIZURE/WEAK/DIZZY ---
See Addendum History of Present Illness General Chief Complaint: Neuro Symptoms/ Deficit Stated Complaint: BIBA, ?STROKE? Source: patient, old records, EMS Exam Limitations: no limitations Vital Signs & Intake/Output Vital Signs & Intake/Output Vital Signs Date Time Temp Pulse Resp B/P B/P Pulse O2 O2 Flow FiO2 Mean Ox Delivery Rate 12/03 2208 96.5 71 16 168/71 97 Room Air 12/03 1955 96.6 71 20 149/73 96 Room Air 12/03 1750 148/86 12/03 1747 95.9 68 20 184/94 98 Room Air / 1525 97.4 69 18 161/87 97 Room Air 12/03 1336 95 12/03 1310 96.5 83 17 151/86 95 Room Air Allergies Coded Allergies: No Known Allergies (11/30/15) Reconcile Medications Amlodipine Besylate 10 MG TABLET 1 TAB PO DAILY HTN (Reported) Aspirin (Ecotrin*) 81 MG TABLET.DR 1 TAB PO DAILY HEART/BLOOD (Reported) Furosemide 20 MG TABLET 1 TAB PO DAILY HEART (Reported) Hydralazine HCl 25 MG TABLET 1 TAB PO BID HTN (Reported) Metoprolol Succinate 25 MG TAB 1 TAB PO DAILY HEART/BP (Reported) Pravastatin Sodium 40 MG TABLET 1 TAB PO DAILY CHOLESTEROL (Reported) Scopolamine Hydrobromide (Transderm-Scop) 1.5MG/3DAY PATCH.TD.3 1 PAT TOP Q3D PRN vertigo apply to the hairless area behind 1 ear Tamsulosin HCl 0.4 MG CAP.ER.24H 2 CAP PO QPM BPH (Reported) Valsartan (Diovan) 40 MG TABLET 1 TAB PO DAILY HEART (Reported) Venlafaxine HCl (Venlafaxine HCl ER) 75 MG CAP.ER.24H 2 CAP PO DAILY MENTAL HEALTH (Reported) Core Measure Meds Pre-Hospital aspirin Triage Note: BIBA FROM HOME C/O "FEELING DISORIENTED" XMONTHS PER PT, PER EMS FAMILY STATING 2-3 DAYS OF "CONFUSION." PT C/O DISORIENTATION BUT ANSWERED QUESTIONS APPROPRIATLY/FOLLOWED COMMANDS FOR EMS AND ON ARRIVAL WITHOUT ANY DISORIENTATION. NO NEURO DEFECITS, C/O INTERMITTANT DIZZINESS, C/O HEADACHE AND ASKING LIGHTS BE TURNED OFF. Triage Nurses Notes Reviewed? yes Onset: Last week Duration: day(s):, changing over time, continues in ED Timing: recent history Severity: moderate No Modifying Factors: none HPI: Several days to 1 week prior to admission family and patient report he is at episodes of disorientation confused to where he is associated with dizziness and weakness. He denies fever chills nausea vomiting diarrhea abdominal pain chest pain cough shortness of breath headache dysuria rash bleeding. (STACIE MIKE MD) Past History Travel History Traveled to [place] past 21 day No Medical History Any Pertinent Medical History? see below for history Neurological: Parkinson's disease EENT: NONE Cardiovascular: CHF, hypertension, HIGH CHOLESTEROL Respiratory: NONE Gastrointestinal: NONE Hepatic: NONE Renal: chronic kidney disease Musculoskeletal: NONE Psychiatric: MDD BIPOLAR? Endocrine: NONE Blood Disorders: anemia Cancer(s): NONE CONTRACT DRIVER/Reproductive: NONE History of MRSA: No History of VRE: No History of CDIFF: No Surgical History Surgical History: CARDIAC STENT Psychosocial History Who do you live with Spouse Services at Home None What is your primary language Georgian Tobacco Use: Never used Family History Hx Contributory? No (STACIE MIKE MD) Review of Systems Review of Systems Constitutional: Reports: no symptoms. EENTM: Reports: no symptoms. Respiratory: Reports: no symptoms. Cardiovascular: Reports: no symptoms. GI: Reports: no symptoms. Genitourinary: Reports: no symptoms. Musculoskeletal: Reports: no symptoms. Skin: Reports: no symptoms. Neurological/Psychological: Reports: see HPI, confusion. Hematologic/Endocrine: Reports: no symptoms. Immunologic/Allergic: Reports: no symptoms. All Other Systems: Reviewed and Negative (STACIE MIKE MD) Physical Exam Physical Exam General Appearance: well developed/nourished, alert, awake, anxious, mild distress Head: atraumatic, normal appearance Eyes: Bilateral: normal appearance, PERRL, EOMI, other (nystagmus). Ears, Nose, Throat: normal pharynx, normal ENT inspection, hearing grossly normal Neck: normal inspection, supple, full range of motion, no midline tenderness Respiratory: normal breath sounds, chest non-tender, no respiratory distress, quiet respiration, lungs clear Cardiovascular: regular rate/rhythm, normal peripheral pulses, norml femoral pulses equa Peripheral Pulses: 4+ carotid (R), 4+ carotid (L) Gastrointestinal: normal bowel sounds, soft, non-tender, no organomegaly Back: normal inspection, normal range of motion Extremities: normal range of motion, no ligament instability Neurologic/Psych: no motor/sensory deficits, awake, alert, marketing production coordinator II-XII nml as tested, depressed affect Reflexes: 2+: bicep (R), bicep (L). Skin: intact, normal color, warm/dry Lymphatic: no anterior cervical jammie Core Measures ACS in differential dx? Yes ASA ordered for poss ACS? No-ACS ruled out CVA/TIA Diagnosis: Yes Severe Sepsis Present: Yes Septic Shock Present: Yes (RASHID GREEN,STACIE) Progress Differential Diagnosis: benign positional vertigo, CVA/stroke, dehydration, drug intoxication, electrolyte imbalance, hypoglycemia, pneumonia Plan of Care: Orders Procedure Date/time Status Regular Diet 12/03 D Active CASE MANAGEMENT CONSULT 12/03 1904 Active Add-on Test (ER Only) 12/03 1823 Active URINE DRUG SCREEN FOR ER ONLY 12/03 1800 Complete ED CRISIS PSYCH CONSULT 12/03 1732 Active ETHANOL 12/03 1333 Complete TROPONIN LEVEL 12/03 1318 Complete COMPREHENSIVE METABOLIC PANEL 12/03 1318 Complete CBC WITHOUT DIFFERENTIAL 12/03 1318 Complete EKG 12/03 1310 Active Laboratory Tests 12/03/16 1810: Urine Opiates Screen < 100.00, Methadone Screen < 40, Barbiturate Screen < 60, Ur Phencyclidine Scrn < 6.00, Amphetamines Screen < 100, U Benzodiazepines Scrn < 85, Urine Cocaine Screen < 50, Urine Cannabis Screen < 5.00 12/03/16 1333: Anion Gap 9, Estimated GFR 34 L, BUN/Creatinine Ratio 15.8, Glucose 127 H, Calcium 8.9, Total Bilirubin 0.4, AST 32, ALT 55, Alkaline Phosphatase 71, Troponin I 0.02, Total Protein 6.3, Albumin 3.8, Globulin 2.5, Albumin/Globulin Ratio 1.5, CBC w Diff NO MAN DIFF REQ, RBC 4.26 L, MCV 89.4, MCH 29.5, RDW 13.7 , MPV 8.6, Gran % 66.2, Lymphocytes % 24.0, Monocytes % 6.1, Eosinophils % 3.4, Basophils % 0.3, Absolute Granulocytes 3.7, Absolute Lymphocytes 1.4, Absolute Monocytes 0.3, Absolute Eosinophils 0.2, Absolute Basophils 0, PUBS MCHC 33.0, Serum Alcohol < 10.0 Diagnostic Imaging: Viewed by Me: Radiology Read, CT Scan. Discussed w/RAD: Radiology Read, CT Scan. Radiology Impression: no acute abnormality CXR Impression: no acute abnormality, no infiltrates Initial ED EKG: normal axis, normal intervals, normal p-waves, normal QRS complex, normal sinus rhythm, no ST T wave changes Prior EKG: unchanged Rhythm Strip: normal sinus rhythm Hand-Off Endorsed To: DAVID GREEN,BAYRON Hamilton Endorsed Time: 1899 Pending: consult Comments: Patient too tired and unwilling to assess ambulation. Nursing spoke to daughter and report he has chronic issues with motivation performing ADLs taking daily medications. He is becoming increasingly difficult to care for at home. (STACIE MIKE MD) Departure Departure Disposition: STILL A PATIENT Condition: Stable Clinical Impression Primary Impression: Depression, major, recurrent Qualifiers: Active/Remission status: currently active Major depression episode severity: severe Psychotic features: without psychotic features Qualified Code: F33.2 - Major depressive disorder, recurrent severe without psychotic features Secondary Impressions: Disorientation, unspecified, Vertigo Referrals: Gregg LOPEZ MD (PCP/Family) Departure Forms: Customer Survey General Discharge Information Prescriptions: Current Visit Scripts Scopolamine Hydrobromide (Transderm-Scop) 1 PAT TOP Q3D PRN vertigo #4 PAT apply to the hairless area behind 1 ear (STACIE MIKE MD) PA/ELECTRONIC HEAT SEAL OPERATOR Co-Sign Statement Statement: ED Attending supervision documentation- [] I saw and evaluated the patient. I have also reviewed all the pertinent lab results and diagnostic results. I agree with the findings and the plan of care as documented in the PA's/ELECTRONIC HEAT SEAL OPERATOR's documentation. [x] I have reviewed the ED Record and agree with the PA's/ELECTRONIC HEAT SEAL OPERATOR's documentation. [] Additions or exceptions (if any) to the PAs/ELECTRONIC HEAT SEAL OPERATOR's note and plan are summarized below: [] (DAVID GREEN,BAYRON Hamilton)
--- NOTE | 2016-12-03 14:44 | NUR ---
PT SLEEPING VS RESTING WITH EYES CLOSED, RESPONDS APPROPRIATLY TO QUESTIONS, NO OTHER SYMPTOMS. AWAITING XRAY RESULTS.
--- NOTE | 2016-12-03 15:03 | RADIOLOGY REPORT ---
EXAMINATION: XR PORTABLE CHEST CLINICAL INFORMATION: Dizziness. Confusion. COMPARISON: Chest radiography 07/29/2016. TECHNIQUE: Portable frontal view of the chest was obtained. FINDINGS: Cardiac device projects over the left heart. The lungs are well expanded. No convincing new consolidation. No pulmonary edema, pleural effusion, or pneumothorax. Mediastinal contours are stable. No acute osseous abnormalities. IMPRESSION: No evidence of acute pulmonary pathology.
[2016-12-03] MEDS ORDERED: TRANSDERM-SCOP1 EACH TOP (15:26)
--- NOTE | 2016-12-03 15:36 | NUR ---
REMAINS RESTING WITH EYES CLOSED ON STRETCHER, CONTS TO RESPOND APPROPRIATLY TO QUESTIONS/CONVERSATION, NO COMPLAINTS, FEELS SCOP PATCH "IS HELPING A LITTLE BIT." AWAITING DISPO.
--- NOTE | 2016-12-03 16:20 | NUR ---
ASKED PT TO ATTEMPT WALKING WITH THIS MST. PT REFUSED BECAUSE OF HIS "MENTAL ATTITUDE". WHEN TOLD THAT WE NEED TO SEE IF HE IS CAPABLE OF WALKING BEFORE DECIDING TO DISCHARGE, HE SAID TO COME BACK IN 1/2 HR.
--- NOTE | 2016-12-03 16:49 | NUR ---
PT REFUSING TO WALK. STATES " HE WANTS TO REST"
--- NOTE | 2016-12-03 18:16 | NUR ---
PHONE CALL PLACED TO DAUGHTER MAIA AT REQUEST OF MD PT REFUSING TO ATTEMPT AMBULATION. DTR STATES PT HAS SEEMED "CONFUSED A LITTLE BIT" FOR AWHILE ON AND OFF, AND FEELS HIS GAIT IS "KIND OF SHAKY." REPORTS HE HAS NOT FALLEN AND IS ABLE TO DRESS/FEED/BATHE HIMSELF. HOWEVER, SHE STATES HE HAS A LONG HX OF MENTAL ILLNESS AND "HE WON'T TRY, AT ALL. HE WON'T TAKE HIS MEDS OR EVEN GET OUT OF BED UNLESS I PROMPT HIM, AND THAT'S ALL PSYCHIATRIC. HE WON'T OPEN HIS EYES A LOT OF THE TIME. I'M AT THE END OF MY ROPE, I'VE TOLD HIM I CAN'T KEEP DOING THIS AND I KNOW HE CAN'T JUST KEEP COMING TO THE HOSPITAL ALL THE TIME. I THINK HE NEEDS TO BE PLACED. MY IS VERY GOOD WITH HIM AND DOES A LOT WITH HIM BUT HE HAD A MAJOR HEART ATTACK LAST YEAR AND HE'S STARTING TO HAVE CHEST PAINS THIS WEEK BECAUSE MY DAD WON'T EVEN TRY AT ALL, AND MY TOLD ME HE CAN'T DO THIS ANYMORE EITHER. I TOLD MY DAD HE'S GOING TO KILL MY ." DTR REPORTS PT HAS HAD MULTIPLE STR ADMITS (MOST RECENT AT [facility] [place]) WELL PSYCH ADMITS ([place]), REPORTS SHE TAKES HIM TO SEE PSYCH REGULARLY ([facility] IN [place]) AND SHE MAKES SURE HE TAKES HIS PSYCH MEDS. SHE IS CONFIDENT HE "IS VERY BIPOLAR BUT NOT SUICIDAL, HE NEVER HAS BEEN." DTR STATES SHE WILL BE AVAILABLE BY PHONE FOR THE REST OF THE NIGHT AND THAT IF NEEDED SHE WILL COME IN "BUT HONESTLY I'M EXHAUSED AND I'D RATHER NOT IF YOU DON'T NEED ME." WHEN ASKED IF SHE WILL ALLOW PT BACK TO HER HOME IF MEDICALLY/PSYCHIATRICALLY CLEARED SHE WAS AMBIVALENT AND COULDN'T GIVE A FIRM ANSWER. SHE UNDERSTANDS CRISIS AND CASE MGMT WILL BE INVOLVED AND IS AWAITING UPDATES. SHE REPORTS SHE HAS STARTED THE T19 PROCESS AND PT IS T19 PENDING.
--- NOTE | 2016-12-03 18:21 | NUR ---
PT STILL ON STRETCHER, REFUSING TO OPEN EYES AND NEEDS MULTIPLE PROMPTS TO ANSWER QUESTIONS BUT DOES SO APPROPRIATLY. ASKS "CAN I STAY HERE TONIGHT? I JUST DON'T FEEL RIGHT IN MY HEAD." DESPITE MULTIPLE REQUESTS PT DID NOT PROVIDE FURTHER CLARIFICATION ON HOW HE FEELS. PT ABLE TO TAKE OFF PANTS AND USE URINAL INDEPENDENTLY WHEN TOLD HE WOULD BE STRAIGHT CATHED IF UNABLE TO PROVIDE SAMPLE. AFTER DISCUSSION WITH DR MIKE, VBA PROGRAMMER AND CRISIS, URINE TRIO SENT AND CRISIS WILL EVAL PT AFTER URINE BACK, THEN POC WILL BE DETERMINED BASED ON RESULTS.
--- NOTE | 2016-12-03 18:23 | NUR ---
LONG CONVERSATION WITH PT REGARDING POC. PT WAS INFORMED VERY CLEARLY THAT HE WILL BE EVAL'D BY CRISIS AFTER LABS BACK. EXPLAINED THERE IS NO REASON FOR MEDICAL ADMISSION AND THAT THIS MEANS HIS INSURANCE WILL NOT COVER SAME. CONTS TO STATE HE WANTS ADMISSION TO EITHER HOSPITAL, PSYCH FACILITY OR SNF. EXPLAINED THAT CRISIS WILL DETERMINE IF PSYCH ADMISSION WARRENTED. ALSO EXPLAINED THAT IF CLEARED MEDICALLY AND BY CRISIS, STR CAN BE EXPLORED BUT ALSO WILL NOT BE COVERED BY INSURANCE IF PT REFUSES TO PARTICIPATE IN EVALS/ASSESSMENTS/THERAPY. EXPLAINED TO PT THAT IF HE WANTS ADMISSION TO A HOSPITAL OR SNF HE NEEDS TO COOPERATIVE WITH EVALS. PT VERBALIZED UNDERSTANDING.
--- NOTE | 2016-12-03 20:18 | NUR ---
REMAINS RESTING ON STRETCHER, AWAITING CRISIS EVAL.
--- NOTE | 2016-12-03 20:37 | NUR ---
CALL PLACED TO DTR AND UPDATE PROVIDED ON POC CURRENTLY. DTR WILL BE AT HOME IF CRISIS OR OTHER STAFF NEED TO SPEAK WITH HER, HOWEVER IF PT WILL BE HELD OVER FOR CASE MGMT/PT EVAL AND THERE ARE NO MAJOR CHANGES DTR WOULD PREFER NOT TO BE UPDATED UNTIL MORNING WHEN A POC IS MORE CLEAR. DTR MAKES CLEAR THAT SHE IS NOT ABANDONING HER FATHER AND WILL COME IN AT ANY TIME IF NECESSARY. PT CONTS TO REST ON STRETCHER IN NAD.
--- NOTE | 2016-12-03 20:58 | NUR ---
Crisis attempted to meet with patient. Patient reported he was sleeping he is tired. he reports crisis woke him up. Stated he wanted to go back to sleep. Crisis will try to evaluate tomorrow AM.
--- NOTE | 2016-12-03 22:48 | NUR ---
REMAINS SLEEPING ON STRETCHER, EASILY AROUSED. REFUSED TO BE EVALUATED BY CRISIS EARLIER, WILL BE HELD OVER FOR CRISIS/CASE MANAGEMENT.
--- NOTE | 2016-12-03 23:49 | NUR ---
ASSUMED PRIMARY CARE, SLEEPING SOUNDLY NO DISTRESS.
--- NOTE | 2016-12-04 04:47 | NUR ---
INTERMITTANTLY SELF CHANGING POSITION, PT DOES NOT WISH TO CONVERSE AND WILL LET "NURSE KNOW WHEN HE WANTS SOMETHING" APPEARS COOP AND CALM AT THIS TIME/
--- NOTE | 2016-12-04 08:00 | NUR ---
ASSUMED CARE OF PT, PT SLEEPING IN ROOM WITH BLANKET OVER HEAD, EASILY AROUSABLE FOR ASSESSMENT, PT DENIES ANY COMPLAINTS AT THIS TIME. CONTINUES TO REFUSE TO AMBULATE, WHEN ASKED IF HE NEEDED TO USE THE RESTROOM PT STATING "ILL WALK TO THE BATHROOM FOR THAT BUT NOTHING ELSE". VSS, BREAKFAST TRAY AT BEDSIDE.
--- NOTE | 2016-12-04 08:59 | NUR ---
PT ASKING "NOT TO BE BOTHERED ILL TELL YOU WHEN I WANT TO DO SOMETHING" PT EDUCATED WASHTUB WORKER HELPER MCGRATH USE AND PT FREQUENTLY REPOSITIONING SELF IN BED.
--- NOTE | 2016-12-04 10:33 | NUR ---
PT CONTINUES TO SLEEP QUIETLY, VOIDING OFFERED AND PT REFUSING. PT SEEN FREQUENTLY REPOSITIONED SELF IN BED.
--- NOTE | 2016-12-04 11:38 | NUR ---
CRISIS IN ROOM WITH PATIENT
--- NOTE | 2016-12-04 12:40 | ED PSYCH CRISIS CONSULTATION ---
See Addendum Crisis Consult Basic Assessment Date of Consult: 12/04/16 Responsible Person/Accompanied By: Self Insurance Authorization: Insurance #1: Insurance name: MEDICARE A Phone number: Policy number: [id number] Group number: Authorization number: ED Provider: Patient's ED Provider: STACIE MIKE MD Primary Care Physician: Patient's PCP: Gregg LOPEZ MD PCP's Current Psychiatrist: Dr. Reynaldo Alvarado at [facility]; Dr. Hair at [facility] Chief Complaint: Disorientation at home and "loss of memory." Patient's Quote: "I lost my memory. I could not remember where I was." Present Illness: 81 M LEFTY from home 12/03/16 @ 1318 with CC of feeling disoriented with 2-3 days of confusion, per family report to EMS. The patient was recently hospitalized at [facility] for depression about 3-1/2 weeks ago. He was discharged to home with his daughter, Charmaine, who does not feel that he can safely return home with her. He is currently followed by Dr. Teo Hair as an outpatient for bipolar disorder. He has had electroconvulsive therapy at [facility] about 6-7 months ago, per Dr. Hair. Please see the collateral note for Dr. Osbaldo Smith below for current medications. The patient has a history of bipolar I disorder, treated on inpatient psychiatry last on 01/24/2010-03/04/2010 for suicidal ideation with plan to hang himself. That was his 4th admission to inpatient psychiatry since 1988. This SI resolved during that admission, and he was discharged to OPS. He has been seen here at the ED on 11/30/2015 for depression, and was treated and released. He was also seen in the ED on 02/20/2016, and admitted to medicine to R /O TIA. Neurology did not find much support for a TIA, but felt that the patient should have an MRI as an outpatient. Labs 12/03/16: WBC WNL; sodium, potassium and calcium WNL; BUN 30H/creatinine 1.9H/eGFR 34L; glucose 127H. CT Head 12/03/16 - "There is no evidence of acute intracranial hemorrhage or territorial infarction. No abnormal mass effect or midline shift is seen. Alan to white matter differentiation is well preserved. No extra-axial fluid collections are identified. The ventricles are normal in size. 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 There are scattered bilateral deep white matter hypodensities, could represent chronic ischemic changes of small vessel disease. Atherosclerotic calcifications of the cavernous parts of internal carotid arteries and intracranial parts of vertebral arteries noted. The osseous structures and soft tissues are normal. The mastoid air cells and visualized portions of the paranasal sinuses are well aerated. Prior right cataract surgery." CXR 12/03/16 - No acute pulmonary pathology UTox - Negative. UA - Pending. MSE: MMSE score today 25/30, suggestive of no cognitive impairment. Oriented, but wrong season (summer); 2 errors in Serial 7s, but spells WORLD correctly forward and backward; recalls 2 of 3 objects; identifies a pen and TV correctly; one error in repeating a phrase; follows 2 stage command; reads and obeys a command; unable to write a legible sentence; unable to copy the design. The patient is alert, but lying on his side making occasional eye contact. He is oriented, except as above. He denies AH; denies VH. He feels safe here in the hospital and at home. He does not think anyone is out to get him, denies any special rios and denies thought broadcasting. He reports that the world feels unreal to him, but when asked for more information, states, "I don't know." He denies symptoms of depersonalization. He reports he is always tired, sleeping 14 hours/day during the night and daytime. "I'm always tired and don't want to do anything." He denies SI/HI. He reports he has had suicidal ideation a few times, but denies any attempts. He denies use fo alcohol or recreational/street drugs. He reports a history of psychiatric hospitalization for "despondency and lack of memory." He does not feel the hospitals helped him. "I've been sad all my life. " Asked what would help him, he states, "The right medications would help. They make me tired." He believes he had 1 or 2 changes to his medications in the last month. He denies any history of seizure. Collateral: 1. Mario Lainez, the patient's son, ELVIS, , LVM 1200. On the return call, Mario states that he felt the patient should be in a nursing facility and his spouse found the patient a bed in [place], [place] last week. This was opposed by the patient's daughter, Charmaine, who did not want the patient so far from home. He is not sure about medications, but knows that Charmaine told him that one new medication was $600/month, and that she was going to get one pill from the pharmacy. Mario thought that she may have had some samples of the medication, which we beleive was lurasidone/Latuda. 2. Charmaine Munoz, daughter, /[phone], LVM 1207. She reports that he has been getting his medications, and just picked up samples of Latuda at Dr. Hair's office this past Sunday. she confirms that only one dose was picked up from the pharmacy, and have been using samples. She states that the patient has been deteriorating since discharge from [facility] last month. She feels that he is not improving, and she is unable to care for him at home anymore. 3. Dr. Marce Mak, may have seen the patient while inpatient at [facility] psychiatry in Oct, 2016. She was unable to open the [facility] EMr to confirm, and referred us to Claudine, the underwriting clerk at the psychiatry unit, ; [facility] for Claudine, and expect a return call to ask about hospitalization, discharge medications and current providers. 4. Dr. Reynaldo Alvarado, [facility], , LVM 1227, expect return call. 5. [facility] [address], [place]: Lorazepam 0.5 mg PO daily PRN by Marce Mak on 11/23/16 Latuda 40 mg PO daily at dinner; one-time dose by Dr. Alvarado, 10/19/16. Venlafaxine ER 75 mg X 3 (225 mg) daily by Zoe Glover, 09/11/16 (Old order) 6. Dr. Teo Hair, , current treating psychiatrist: a. The patient was hospitalized about 3-1/2 weeks ago at [facility] for depression. b. reports that the patient should be on lorazepam 0.5 mg PO daily PRN, venlafaxine ER 150 mg PO daily, Latuda 40 mg PO daily, which had only been filled at [facility] as a one-time dose. c. The patient should continue Latuda 40 mg PO daily. He should continue lorazepam 0.5 mg PO daily as needed and venlafaxine ER 150 mg PO daily. d. Modafinil should be D/C. e. He has a long history of bipolar disorder. f. He had been treated with ECT about 6-7 months ago. Plan: Case management will place the patient in geriatric psychiatry, after which he will discharge to [place]. Patient's Address: [address] [place] [address] Other Phone Number: Who Do You Live With? Daughter Family/Informants Interviewed: Mario Koehlersalud, son and POA. Dr. Hair, psychiatrist Charmaine Munoz, daughter. Allergies - Coded Allergies: No Known Allergies (11/30/15) Current Medications - Scheduled Medications Amlodipine Besylate 10 MG TABLET 1 TAB PO DAILY HTN (Reported) Entered as Reported by LESLIE LANE on 12/03/16 1338 Aspirin (Ecotrin*) 81 MG TABLET.DR 1 TAB PO DAILY HEART/BLOOD (Reported) Entered as Reported by RENETTA MADERA on 11/30/15 193 Furosemide 20 MG TABLET 1 TAB PO DAILY HEART #30 (Reported) Entered as Reported by LESLIE LANE on 12/03/16 1340 Hydralazine HCl 25 MG TABLET 1 TAB PO BID HTN #60 (Reported) Entered as Reported by LESLIE LANE on 12/03/16 1340 Metoprolol Succinate 25 MG TAB 1 TAB PO DAILY HEART/BP #30 (Reported) Entered as Reported by RENETTA MADERA on 11/30/151935 Last Taken: At an unknown date and time Pravastatin Sodium 40 MG TABLET 1 TAB PO DAILY CHOLESTEROL #30 (Reported) Entered as Reported by RENETTA MADERA on 11/30/151936 Last Taken: At an unknown date and time Tamsulosin HCl 0.4 MG CAP.ER.24H 2 CAP PO QPM BPH #90 (Reported) Entered as Reported by JONES CHANG MD on 02/21/16 0010 Last Taken: At an unknown date and time Valsartan (Diovan) 40 MG TABLET 1 TAB PO DAILY HEART #30 (Reported) Entered as Reported by LESLIE LANE on 12/03/16 1341 Venlafaxine HCl (Venlafaxine HCl ER) 75 MG CAP.ER.24H 2 CAP PO DAILY MENTAL HEALTH #30 (Reported) Entered as Reported by RENETTA MADERA on 11/30/15 1936 Last Taken: At an unknown date and time Scheduled PRN Medications Scopolamine Hydrobromide (Transderm-Scop) 1.5MG/3DAY PATCH.TD.3 1 PAT TOP Q3D PRN vertigo #4 PAT Prescribed by STACIE MIKE MD on 12/03/16 Laboratory Results: Laboratory Tests 12/03/16 1810: Urine Opiates Screen < 100.00, Methadone Screen < 40, Barbiturate Screen < 60, Ur Phencyclidine Scrn < 6.00, Amphetamines Screen < 100, U Benzodiazepines Scrn < 85, Urine Cocaine Screen < 50, Urine Cannabis Screen < 5.00, Urine Color YEL, Urine Clarity CLEAR, Urine pH 6.0, Ur Specific [place] 1.015, Urine Protein NEG, Urine Ketones NEG, Urine Nitrite NEG, Urine Bilirubin NEG, Urine Urobilinogen 0.2, Ur Leukocyte Esterase NEG, Ur Microscopic EXAM NOT REQUIRED, Urine Hemoglobin NEG, Urine Glucose NEG (FELICIA LEVI APRN) Past History Past Medical History Neurological: Parkinson's disease EENT: NONE Cardiovascular: CHF, hypertension, HIGH CHOLESTEROL Respiratory: NONE Gastrointestinal: NONE Hepatic: NONE Renal: chronic kidney disease Musculoskeletal: NONE Psychiatric: bipolar disease Endocrine: NONE Blood Disorders: anemia Cancer(s): NONE RUG DYER/Reproductive: NONE Past Surgical History Surgical History: CARDIAC STENT Psychosocial History Strengths/Capabilities: Pt. has psychiatric treatment in the community Physical Limitations (Interventions): Reluctant to walk at times, but is ambulatory. Psychiatric Treatment History Psych Treatment Psychiatric Treatment Yes Inpatient Treatment Yes Outpatient Treatment Yes Location of Treatment [facility] Reason for Treatment Bipolar depression, suicidality Dates of Treatment Please see the HPI. Response to Treatment Improved Diagnosis by History: Bipolar I disorder with history of psychotic features. 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 Substance Use/Abuse History Drug Use/Abuse Substances Used/Abused No (Denies) Substance Abuse Treatment Substance Abuse Treatment Past Substance Abuse [place] No (Denies) (FELICIA LEVI APRN) Current Mental Status Mental Status Orientation: Person, Place, Situation Affect: Flat Speech: Soft Neuro-vegetative: Anhedonia, Energy Decreased, Hypersomnia, Loss of Interest Appearance Appearance- Dress/Hygiene: Disheveled, hospital garb Behaviors Thought Process: Thought Blocking Thought Content: Thought Blocking Memory: Impaired Insight: Poor SI/HI Risk Assessment Past Suicidal Ideation/Attempts Yes Current Suicidal Ideation/Att No Past Homicidal Ideation/Att: No Current Homicidal Ideation/Attempts No Degree of Intent: None Risk Factors: age (under 24/over 65), SA/MH hospitalized, male PTSD Checklist PTSD Done? patient declined ED Management Sitter: Yes Restraints: No (FELICIA LEVI APRN) DSM5/PS Stressors/Medical Prob Diagnosis' (DSM 5, Stressors, Medical): F31.9 Bipolar I disorder, unspecified Current GAF: 28 (FELICIA ELVI APRN) Departure Disposition Referrals Gregg LOPEZ MD (PCP/Family) (FELICIA LEVI APRN) Addendum Addendum MARCELO spoke with Loulou Alvarez, from Case Management, who notes that she is in the process of completing a Geriatric bed search. (JUWAN GARSIA,MARIANNE)
--- NOTE | 2016-12-04 12:44 | NUR ---
THIS PT WAS AWOKEN AND AMBULATED TO ROOM 14 WITH THE ASSISTANCE OF JENNIFER LUND AND THIS RN. PT CALM AND COOPERATIVE.
--- NOTE | 2016-12-04 13:18 | NUR ---
THIS RN CALLED LAB TO ASK IF THEY STILL HAD PT'S URINE SAMPLE FROM YESTERDAY IN ORDER TO RUN THE URINALYSIS ORDERED. SPOKE WITH DARLENE WHO SAID THAT THEY COULD RUN IT OFF THE URINE THEY HAD IN THE LAB.
--- NOTE | 2016-12-04 13:59 | NUR ---
PT RESTING ON BED FACING DOOR. RESPIRATIONS EQUAL AND UNLABORED. SITTER AT DOOR.
--- NOTE | 2016-12-04 14:45 | NUR ---
12/04 CASE MGMT- CALL FROM TINO FROM [facility] BED OFFER PT WILL NOT NEED 3 MIDNIGHT STAY PER TINO DUE TO PT HAVING PENDING MEDICAID FOR MODEL SET ARTIST CARE. PER TINO STATES SHE NEEDS MIMR APPROVED AND WILL NEED MOST LIKELY NEED ONSITE PRIOR TO BED OFFER. CALL PLACED TO PT SON (POA) MESSAGE LEFT AWAITING RETURN CALL BACK.
--- NOTE | 2016-12-04 15:30 | NUR ---
PT SLEEPING ON HIS LEFT SIDE. RESPIRATIONS EQUAL AND UNLABORED. SITTER AT DOOR.
--- NOTE | 2016-12-04 16:00 | NUR ---
Case Mgmnt TSF: Per Molina SEPULVEDA in crisis, patient is recommended for [facility]. Molina had placed calls to [facility] (left msg); [facility]--might possibly have a bed in 2 days but would like information faxed over; [facility]--fax over information and will review on Sunday. [facility])--called back and is requesting clinical be faxed. Case mgmnt continuing to follow.
--- NOTE | 2016-12-04 16:20 | NUR ---
Case mgmnt TSF: Faxed over information to Amie[facility] k[facility] at [facility] for review. Case management continuing to follow.
--- NOTE | 2016-12-04 16:48 | NUR ---
PT REMAINS ASEEP AT THIS TIME. RESPIRATIONS EQUAL AND UNLABORED. SITTER AT DOOR.
--- NOTE | 2016-12-04 17:10 | NUR ---
Case mgmnt TSF: Faxed over information to [facility] for review. Fax confirmation received back. Case mgmnt continuing to follow.
--- NOTE | 2016-12-04 17:15 | NUR ---
Case Mgmnt TSF: Faxed over information to [facility] for review. Fax confirmation received back. Case mglilibetht continuing to follow.
--- NOTE | 2016-12-04 17:24 | NUR ---
Case Mgmnt TSF: Faxed information over to [facility] for review. Fax confirmation received. Case mgmnt continuing to follow.
--- NOTE | 2016-12-04 18:32 | NUR ---
PT RESTING ON BED IN ROOM 14. PT REQUESTED ANOTHER BLANKET WHICH THIS RN PROVIDED TO HIM. PT ASKED "AM I GOING UP TO [facility]?". THIS RN ADVISED PT THAT A BED SEARCH IS BEING DONE AND NO DECISION HAS BEEN MADE YET WHERE HE WILL GO. SITTER AT DOOR. PT CALM AND COOPERATIVE.
--- NOTE | 2016-12-04 19:30 | NUR ---
Case Leona TSF: I placed a call to [facility] and was told to call back in the morning. I asked if I could fax and they suggested I wait until the morning. Case leona continuing to follow.
--- NOTE | 2016-12-04 19:34 | NUR ---
PT AMBULATORY TO RESTROOM WITH STEADY GAIT. PT CALM AND COOPERATIVE. SITTER AT DOOR.
--- NOTE | 2016-12-04 20:40 | NUR ---
PT SLEEPING ON BED IN ROOM 14. PT HAS BEEN AMBULATORY TO RESTROOM WITH STEADY GAIT AND IS CALMA ND COOPERATIVE WHEN AWAKE. SITTER AT DOOR.
--- NOTE | 2016-12-04 21:45 | NUR ---
PT ASLEEP IN ROOM 14. PT HAS BEEN AMBULATORY TO RESTROOM WITH STEADY GAIT. PT CALM AND COOPERATIVE. SITTER AT DOOR.
--- NOTE | 2016-12-05 02:47 | NUR ---
SLEEPING AT PRESENT
--- NOTE | 2016-12-05 06:54 | NUR ---
AWAKE FOR V/S OFFERS NO COMPLAINTS
--- NOTE | 2016-12-05 07:24 | NUR ---
Physical Therapy: Pt ambulating to bathroom with nursing staff - steady gait reported. Spoke with Sena BERNARDO yesterday. PT evaluation does not need to be preformed. Thank you.
--- NOTE | 2016-12-05 07:37 | NUR ---
ASSUMED CARE, PT NOTED TO BE SLEEPING WITH REGULAR RESP RATE NOTED. SITTER WITH PT
--- NOTE | 2016-12-05 08:29 | NUR ---
PT AWAKE AND ALERT AT THIS TIME, CALM COPERATIVE AND ASKED WHEN HE WOULD BE TRANSFERED, PT AWARE THAT WE ARE STILL WAITING ON BED
--- NOTE | 2016-12-05 10:20 | NUR ---
PT REMAINS CALM AND COPERATIVE , PATIENT REQUESTED TO TAKE A SHOWER. PT SHOWERED , PT THEN REQUESTED TO BE ABLE TO SHAVE, PT AWARE THAT HE COULD NOT HAVE A SHAVER BUT THAT THIS NURSE WOULD SHAVE HIM IF HE WOULD LIKE. PT SHAVED AT THIS TIME
--- NOTE | 2016-12-05 10:37 | NUR ---
Case Management-sadi stated they had a bed for the patient this am and then called back stating due to the patients history of recent ECT therapy , they could not accept him. they suggested [facility] or [facility]. [facility] states they ahve no beds. awaiting call back from [facility]. Message left for patients son to update him. will await call back and keep all informed.
--- NOTE | 2016-12-05 12:04 | NUR ---
12/05 CASE MGMT- BED SEARCH CONTINUES
--- NOTE | 2016-12-05 13:21 | NUR ---
12/05 CASE MGMT- CALL FROM LONG FROM [facility] GOAL IS TO BE OUT TOMORROW BETWEEN 3-4PM FOR AND ONSITE.
--- NOTE | 2016-12-05 14:18 | NUR ---
PT OFFERS NO COMPLAINTS AT THIS TIME. RESTING COMFORTABLE IN ROOM. SITTERS PRESENT FOR SAFETY. INFORMED WAITING PERFORMED.
--- NOTE | 2016-12-05 14:49 | NUR ---
6/6 CASE MGMT- CALL PLACED TO PT SON (POA) MESSAGE LEFT AWAITING RETURN CALL BACK.
--- NOTE | 2016-12-05 15:03 | NUR ---
RECEIVE REPORT FROM JENNIFER BAEZ
--- NOTE | 2016-12-05 15:10 | NUR ---
PATIENT RESTING QUIETLY AND IS W/O C/O. CALM AND COOPERATIVE W/ STAFF.
--- NOTE | 2016-12-05 15:25 | NUR ---
12/05 CASE MGMT- CALL FROM PT DAUGHTER MAIA WHOM WAS REQUESTING UPDATE ON PT PLAN OF CARE. MADE AWARE WAS ATTEMTPING TO CONTACT PT SON AMADOR WHOM IS POA- STATES SHE WILL ATTEMPT TO GET AHOLD OF HIM.
--- NOTE | 2016-12-05 15:33 | NUR ---
12/05 CASE MGMT- CALL PLACED TO [facility] PT SON POSuri- WHOM STATES HE IS POA OF FINANCIAL. AMADOR MADE AWARE STILL PERFORMING [facility] BED SEARCH PER REQUEST OF CRISIS TEAM AND THAT THEY WILL BE RE-ASSESSING PT TOMORROW TO SEE IF PT STILL APPROPRIATE FOR [facility] BED. PT SON AMADOR (FINANICAL POA) INFORMED OVER THE TELEPHONE THAT PT I WILL BE FILLING OUT DENIAL LETTER TO BE ISSUED TO PT REGARDING THAT PT WILL BE A SOCIAL ADMISSION STARTING TODAY DUE TO CONTINUED BED SEARCH FOR [facility] WELL NOT MEETING CRITERIA FOR ADMISSION MEDICALLY AND THAT PT WILL BE LIABLE FOR INPATIENT STAY IN HOSPITAL. PT SON IN AGREEMENT.
--- NOTE | 2016-12-05 17:07 | ED PSY CRISIS COLLATERAL NOTE ---
Collateral Note Collateral Note Family/Inform/Leslie Contacts: Placed a call to Dr. Leslie MD, from [facility], , left a message for a call back.
--- NOTE | 2016-12-05 17:15 | NUR ---
REMAINS ON CONSTANT OBS. RESTING W/ EYES CLOSED AND DEEP/EVEN RESPIRATIONS.
--- NOTE | 2016-12-05 17:32 | History & Physical ---
SHANNON CHURCH 12/05/16 1732: General Information and HPI MD Statement: I have seen and personally examined KERRI ANGULO and documented this H&P. The patient is a 81 year old M who presented with a patient stated chief complaint of [Confusion]. Source of Information: patient, old records Exam Limitations: no limitations History of Present Illness: is an 81 yo man with PMHx. Significant for depression, bipolar disorder brought in by ambulance from home with CC of feeling disoriented with 2 -3 days of confusion, per family report to EMS. Patient remains in the emergency department for 2 days waiting for placement at psychiatric geriatric units. 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 Patient admitted to the hospital awaiting for placement to psychiatry geriatric clinic. He has been evaluated by psychiatry team at the emergency department. Allergies/Medications Allergies: Coded Allergies: No Known Allergies (11/30/15) Home Med list Amlodipine Besylate 10 MG TABLET 1 TAB PO DAILY HTN (Reported) Aspirin (Ecotrin*) 81 MG TABLET.DR 1 TAB PO DAILY HEART/BLOOD (Reported) Furosemide 20 MG TABLET 1 TAB PO DAILY HEART (Reported) Hydralazine HCl 25 MG TABLET 1 TAB PO BID HTN (Reported) Metoprolol Succinate 25 MG TAB 1 TAB PO DAILY HEART/BP (Reported) Pravastatin Sodium 40 MG TABLET 1 TAB PO DAILY CHOLESTEROL (Reported) Scopolamine Hydrobromide (Transderm-Scop) 1.5MG/3DAY PATCH.TD.3 1 PAT TOP Q3D PRN vertigo apply to the hairless area behind 1 ear Tamsulosin HCl 0.4 MG CAP.ER.24H 2 CAP PO QPM BPH (Reported) Valsartan (Diovan) 40 MG TABLET 1 TAB PO DAILY HEART (Reported) Venlafaxine HCl (Venlafaxine HCl ER) 75 MG CAP.ER.24H 2 CAP PO DAILY MENTAL HEALTH (Reported) Past History Travel History Traveled to [place] past 21 day No Medical History Neurological: Parkinson's disease EENT: NONE Cardiovascular: CHF, hypertension, HIGH CHOLESTEROL Respiratory: NONE Gastrointestinal: NONE Hepatic: NONE Renal: chronic kidney disease Musculoskeletal: NONE Psychiatric: bipolar disease Endocrine: NONE Blood Disorders: anemia Cancer(s): NONE FOREST PATROLMAN/Reproductive: NONE History of MRSA: No History of VRE: No History of CDIFF: No Surgical History Surgical History: CARDIAC STENT Past Family/Social History Psychosocial History Services at Home: None Review of Systems Review of Systems Constitutional: Reports: no symptoms. EENTM: Reports: no symptoms. Cardiovascular: Reports: no symptoms. Respiratory: Reports: no symptoms. GI: Reports: no symptoms. Genitourinary: Reports: no symptoms. Musculoskeletal: Reports: no symptoms. Skin: Reports: no symptoms. Neurological/Psychological: Reports: no symptoms. Hematologic/Endocrine: Reports: no symptoms. Immunologic/Allergic: Reports: no symptoms. All Other Systems: Reviewed and Negative Exam & Diagnostic Data Last 24 Hrs of Vital Signs/I&O Vital Signs Date Time Temp Pulse Resp B/P B/P Pulse O2 O2 Flow FiO2 Mean Ox Delivery Rate 12/05 2000 97.8 89 19 140/78 92 Room Air 12/05 1804 98.9 79 19 177/85 94 Room Air 12/05 1607 98.1 70 19 137/70 94 Room Air 12/05 1410 98.5 88 18 132/94 99 Room Air 12/05 1022 97.1 74 18 128/74 96 Room Air 12/05 0829 96.9 76 20 133/64 95 Room Air / 0630 97.6 64 18 131/61 94 Room Air / 2242 96.9 84 19 132/66 94 Room Air /2012 96.9 74 19 159/85 94 Room Air Physical Exam General Appearance Alert, Cooperative, No Acute Distress Skin No Rashes, No Breakdown, No Significant Lesion HEENT Atraumatic, PERRLA, EOMI, Mucous Membr. moist/pink Neck Supple, No JVD, No thryomegaly Cardiovascular Regular Rate, Normal S1, Normal S2 Lungs Clear to Auscultation, Normal Air Movement Abdomen Normal Bowel Sounds, Soft, No Tenderness Vascular Normal Pulses, Pulses Symmetrical Assessment/Plan Assessment: is an 81 yo man with PMHx. Significant for depression, bipolar disorder brought in by ambulance from home with CC of feeling disoriented with 2 -3 days of confusion, per family report to EMS. Assessment: #Bipolar disorder #Depression Plan: -Per psychiatry team The patient should continue Latuda 40 mg PO daily. He should continue lorazepam 0.5 mg PO daily as needed and venlafaxine ER 150 mg PO daily. -Case management will place the patient in geriatric psychiatry, after which he will discharge to [place]. -Home medications needs to be confirmed with the family, couldn't be confirmed for the patient himself Full code DVT prophylaxis with SC heparin As Ranked By This Provider Problem List: 1. Depression, major, recurrent Qualifiers Active/Remission status: currently active Major depression episode severity: severe Psychotic features: without psychotic features Qualified Code: F33.2 - Major depressive disorder, recurrent severe without psychotic features 2. Bipolar 1 disorder, depressed Core Measures/Miscellaneous Acute Coronary Syndrome ACS Diagnosis: No Cerebrovascular Accident CVA/TIA Diagnosis: No Congestive Heart Failure CHF Diagnosis: No VTE (View Protocol) VTE Risk Factors: Acute medical illness, Age > 40 No [facility] VTE prophylaxis d/t: No contraindications No VTE Pharm Prophylaxis d/t: No contraindications VTE Diagnosis: No VTE Type: NONE VTE Confirmed by (Test): NONE Sepsis (View Protocol) Severe Sepsis Present: Yes Septic Shock Septic Shock Present: Yes Miscellaneous Documentation Attending Case Discussed With: BROOKE LOYA MD Primary Care Physician: Gregg LOPEZ MD Patient sees these Specialists - Level of Patient Care: General Medicine BROOKE LOYA MD 12/05/16 2113: Attending MD Review Statement Attending Statement Attending MD Statement: examined this patient, discuss w/resident/PA/INSTRUMENTATION TECHNICIAN, agreed w/resident/PA/INSTRUMENTATION TECHNICIAN, reviewed EMR data (avail) Attending Assessment/Plan: 81M PMH dementia, bipolar disorder, brought in by family for confusion, family unable to care for patient, no evidence of infection, stroke, TIA, metabolic derangement. Thaniatent will be admitte dto medicine for management of dementia.
--- NOTE | 2016-12-05 20:18 | NUR ---
12/05 CASE MGMT- PT DAUGHTER MAIA CALLED AND REQUESTING UPDATE. INFORMED PT WILL BE RE-ASSESSED TOMORROW FROM PSYCH DEPT AND WILL DISCUSS PLAN OF CARE WITH HER AND PT SON AMADOR LEAL AT THAT TIME. CASE MGMT RIKA CONTINUE TO FOLLOW.
--- NOTE | 2016-12-05 20:21 | NUR ---
2000 MEDS GIVEN PER ORDER. PATIENT RESTING SOUNDLY UPON ENTERING ROOM. OFFERS NO C/O.
--- NOTE | 2016-12-05 23:40 | NUR ---
REPORT RECEIVED. PT SOUND ASLEEP WITH REGULAR BREATHING PATTERNS. NO S/S OF PAIN NOTED. SITTER AT THE DOORWAY.
--- NOTE | 2016-12-06 02:09 | NUR ---
CONTINUOUS SLEEPING. NO S/S OF RESPIRATORY DISTRESS.
--- NOTE | 2016-12-06 03:27 | NUR ---
PT LYING IN BED WITH BLINKING EYES. REPORTS PAIN OR ANY DISCOMFORTS.
--- NOTE | 2016-12-06 05:30 | NUR ---
PT WOKE UP DURING CARE. VITAL SIGNS STABLE. CALM AND COOPERATIVE. NO C/O PAIN OR DISCOMFORTS. WENT BACK TO SLEEP.
--- NOTE | 2016-12-06 06:01 | NUR ---
LABS DRAWN AND SENT.
--- NOTE | 2016-12-06 06:02 | NUR ---
KERRI ANGULO Nurse Note by: GIULIANA DASH I agree with the AIRWAYS OPERATIONS SPECIALIST findings/evaluation of this patient's condition. Entered by: GIULIANA DASH Date: 12/06/16 Time: 601
[2016-12-06 06:05] LABS: ABSOLUTE BASOPHIL COUNT 0 /CUMM (0.0-0.2); ABSOLUTE EOSINOPHIL COUNT 0.3 /CUMM (0.0-0.7); ABSOLUTE GRANULOCYTE CT 3.6 /CUMM (1.4-6.5); ABSOLUTE LYMPH COUNT 1.4 /CUMM (1.2-3.4); ABSOLUTE MONOCYTE COUNT 0.6 /CUMM (0.10-0.60); BASOPHIL % 0.3 % (0.0-2.0); EOSINOPHIL % 4.8 % (0-5); GRANULOCYTE % 61.3 % (42.2-75.2); HEMATOCRIT 35.4 % (42-52); MEAN CORPUSCULAR HGB 29.9 PG (27.0-31.0); MEAN CORPUSCULAR HGB CONC 33.7 G/DL (33.0-37.0); MEAN CORPUSCULAR VOLUME 88.5 FL (80.0-94.0); MEAN PLATELET VOLUME 7.4 FL (7.4-10.4); PLATELET COUNT 136 /CUMM (130-400); RBC DISTRIBUTION WIDTH 13.2 % (11.5-14.5); RED BLOOD CELL CT 3.99 /CUMM (4.70-6.10); WHITE BLOOD CELL COUNT 5.8 /CUMM (4.8-10.8)
--- NOTE | 2016-12-06 07:19 | NUR ---
ASSUMED CARE OF PT WHO IS CURRENTLY SLEEPING. RR EVEN AND UNLABORED. PT WAITING FOR RE-EVAL THIS AM AND [facility] BED SEARCH. LIGHTS DIMMED FOR COMFORT. WILL CONTINUE TO MONITOR
--- NOTE | 2016-12-06 09:05 | PN- Housestaff ---
See Addendum Subjective Follow-up For: Confusion Depression Bipolar Subjective: Patient was seen and examined this morning, like comfortably in bed, offers no complaints, vital signs are stable, no overnight events reported by the nurse of the patient. Review of Systems Constitutional: Reports: see HPI. Objective Last 24 Hrs of Vital Signs/I&O Vital Signs Date Time Temp Pulse Resp B/P B/P Pulse O2 O2 Flow FiO2 Mean Ox Delivery Rate 12/06 0538 96.0 66 18 141/74 96 Room Air 12/06 0238 98.6 88 18 178/86 92 Room Air 12/06 0040 97.6 69 18 135/84 96 Room Air 12/05 2001 97.8 89 19 140/78 92 Room Air 12/05 1804 98.9 79 19 177/85 94 Room Air 12/05 1607 98.1 70 19 137/70 94 Room Air 12/05 1410 98.5 88 18 132/94 99 Room Air Intake & Output 12/06 1600 12/06 0800 12/06 0000 Intake Total Output Total Balance Patient 97.522 kg Weight Weight Reported by Patient Measurement Method Physical Exam General Appearance: Alert, Oriented X3, Cooperative, No Acute Distress Skin: No Rashes, No Breakdown, No Significant Lesion Skin Temp/Moisture Exam: Warm/Dry HEENT: Atraumatic, PERRLA, EOMI, Mucous Membr. moist/pink Neck: Supple, No JVD Cardiovascular: Regular Rate, Normal S1, Normal S2, No Murmurs Lungs: Clear to Auscultation, Normal Air Movement Abdomen: Normal Bowel Sounds, Soft, No Tenderness Neurological: Normal Gait, Normal Speech, Strength at 5/5 X4 Ext, Normal Tone, Sensation Intact, Cranial Nerves 3-12 NL, Reflexes 2+ Extremities: No Clubbing, No Cyanosis, No Edema, Normal Pulses, No Tenderness/ Swelling Assessment/Plan Assessment: is 81-year-old male with past medical history significant for depression and bipolar disorder, hypertension, hyperlipidemia, anemia, bilateral carotid plaque, chronic kidney disease who presented to ED with chief complaint of confusion for 2-3 days per family report: On admission vital signs temperature 96.5, pulse 71, blood pressure 168/71, saturating 97% on room air Assessment: #Confusion #Bipolar disorder #Depression #Hypertension #Hyperlipidemia #Chronic kidney disease Plan -Patient presented with history of confusion on top of extensive psych history that includes depression and bipolar -Lab works are negative for infection or metabolic abnormality that could contribute to new onset of confusion -Add on TSH, free T4, vitamin B12 and folic acid -Urine toxicology negative for any drugs -CT head negative for intracranial pathology -Chest x-ray negative for any acute changes -senior mechanical project manager was contacted, decision was made to half-way placement in a state of [place] psych -I contacted patient's daughter Charmaine Munoz on #[phone] 2 confirmed on psych medication, waiting for her call back -Psych consultation, will continue to follow recommendation Full code DVT prophylaxis with SC heparin Diet heart healthy Problem List: 1. Depression 2. Confusion Pain Ratin Pain Location: none Pain Goal: Pain 4 or less Pain Plan: Mild pain pathway Tomorrow's Labs & Rationales: Folic acid, vitamin B12, TSH and free T4
--- NOTE | 2016-12-06 09:50 | NUR ---
PT BECOMING MORE CONFUSED AT THIS TIME. PT IS A&O X 2 BUT IS TALKING TO HIMSELF AND APPEARS TO BE HAVING VISUAL HALLUCINATIONS. MADE AWARE
--- NOTE | 2016-12-06 11:08 | PN- Psychiatry ---
See Addendum Assessment/Plan Impression: Identifying Info: 81-year-old male with a history of bipolar disorder brought in by ambulance to [facility] emergency department for increasing confusion. He was initially recommended for geriatric psychiatry placement and is to be admitted to medicine while appropriate placement is found. Seen today for reevaluation of mental status. SUBJECTIVE "I'm (feeling) fair." Patient endorses some frustration and feeling he has not gotten treated adequately. After a few moments the patient states "don't ask me anymore questions," multiple times and declines to complete interview. OBJECTIVE Mental Status Exam Presentation/Appearance: Hospital garb. Lying in bed. Appears fatigued. Partially cooperative with evaluation but declines to finish interview. Orientation: Person, situation, year, month, season, but not date. States place as "[facility]," and "[facility]" Sensorium: Somnolent but easy to arouse Eye contact: Fair Affect: Blunted Mood: States is "fair," irritible Depression: Endorses "a little" Anxiety: Endorses "a little" Thought Content: - Denies SI/HI, AH/VH - Denies Hopeless/Helpless Thoughts Thought Process: By report confused at times, able to respen Associations: Appropriate Speech: Normal tone and rate Judgment: Per report impaired Insight: Appears to understand need for treatment Cognition: Memory: Some short deficits noted but able to name date and place of Attention/Concentration: Fair, impairment reported Fund of Knowledge: Unable to assess Abstractions: Unable to assess MMSE: Pt would not complete exam, MMSE compled on 12/05/16 was 25/30 suggestive of no cognitive impairment Staff is reporting that the patient has been forgetful, he is unsure which room is his and he has been occasionally calling out in his sleep. Additionally staff has reported that he appears to be hallucinating at times. Left message with psychiatrist Dr. Teo Hair, to call back and provided collateral to attempt to obtain additional information on patient's baseline. Called Charmaine Munoz, daughter, to attempt to gain additional collateral information on recent mental status. Was informed she would be traveling to Hospital shortly we'll attempt to gain collateral at that point. ASSESSMENT Discussed case with Bruce Ochoa MD chief of psychiatry. 81-year-old male with long history of bipolar disorder presents to [facility] with increasing confusion since hospitalization at [facility] 1 month ago. At present all the patient displays low mood, anxiety and irritability. He denies suicidality and homicidality. With reports of new onset hallucinations and confusion diagnosis of mood episode with psychotic features or unspecified delirium are likely. He has no known history of dementia and while it is possible recent changes could indicate a neurocognitive decline, his MMSE yesterday indicates this may be less likely. Per previous note patient can no longer be cared for at home due to current alterations. Diagnosis Bipolar disorder, current episode depressed with psychotic features versus delirium of unknown etiology Rule out unspecified neurocognitive disorder Total time of 60 minutes was spent with the patient with more than 50% of the time spent in counseling and/or coordination of care. Suggestion: 1. It would be prudent to continue to rule out additional causes of acute confusional state including the following, if not already completed: - UA & Culture - Thyroid pannel - B12 & Folate - ESR - VDRL - Lyme titer 2. Please continue to avoid benzodiazepines, opioid analgesics, and meds with strong anticholinergic properties as much as possible to prevent further confusion. 3. Please initiate the following nonpharmacologic interventions: -Avoid nursing and medical procedures during sleep hours whenever possible - Cluster at night interventions that must be completed as much as possible to minimize sleep disruption - Decrease noise patient area during sleeping hours - Reduce lighting at night - Ensure patient has any sensory aids close by that he regularly uses 4. Continue psychotropics as currently ordered. 5. We will continue to evaluate mental status including how it may relate disposition recommendations. Please stand by for reccomendations pending additional collateral. Thank you for including psychiatry in this case we will continue to follow. Subjective Subjective: as above Objective Last 24 Hrs of Vital Signs/I&O Current Medications Sig/Francisca Start time Last Medication Dose Route Stop Time Status Admin Heparin Sodium 0 .STK-MED ONE 12/06 0628 DC (Porcine) .ROUTE Heparin Sodium 0 .STK-MED ONE 12/05 2243 DC (Porcine) .ROUTE Heparin Sodium 5,000 UNIT Q8 12/05 2200 AC 12/06 (Porcine) SC 0628 Lorazepam 0.5 MG DAILY NEEDED PRN 12/05 2014 AC PO 12/12 2013 Lurasidone HCl 40 MG DAILY 12/06 1000 AC 12/06 PO 1036 Venlafaxine HCl 75 MG TID 12/05 2200 AC 12/06 PO 1036 Laboratory Tests 12/06/16 0600: Anion Gap 9, Estimated GFR 42 L, BUN/Creatinine Ratio 16.3, CBC w Diff NO MAN DIFF REQ, RBC 3.99 L, MCV 88.5, MCH 29.9, RDW 13.2, MPV 7.4, Gran % 61.3, Lymphocytes % 23.6, Monocytes % 10.0 H, Eosinophils % 4.8, Basophils % 0.3, Absolute Granulocytes 3.6, Absolute Lymphocytes 1.4, Absolute Monocytes 0.6, Absolute Eosinophils 0.3, Absolute Basophils 0, PUBS MCHC 33.7 Vital Signs Date Time Temp Pulse Resp B/P B/P Pulse O2 O2 Flow FiO2 Mean Ox Delivery Rate 12/06 0538 96.0 66 18 141/74 96 Room Air 12/06 0238 98.6 88 18 178/86 92 Room Air 12/06 0040 97.6 69 18 135/84 96 Room Air 12/05 2000 97.8 89 19 140/78 92 Room Air 12/05 1804 98.9 79 19 177/85 94 Room Air 12/05 1607 98.1 70 19 137/70 94 Room Air 12/05 1410 98.5 88 18 132/94 99 Room Air Intake & Output 12/06 1600 12/06 0800 12/06 0000 Intake Total Output Total Balance Patient 215 lb Weight Weight Reported by Patient Measurement Method
--- NOTE | 2016-12-06 11:21 | NUR ---
12/06 CASE MGMT- SPOKE WITH [facility] AT [facility] STATES THEY STILL HAVE AN AVAILABLE BED OPEN AT [facility] FOR PT AFTER [facility] APPROVES M[facility] AFTER ONSITE LATER TODAY ALSO WILL NEED UPDATED PSYCH NOTES FAXED. AWAITING PSYCH NOTES.
[2016-12-06 12:34] VITALS: BP 139/94
--- NOTE | 2016-12-06 12:58 | NUR ---
12:30 PT PLACED ON ALPS WHILE RESTING IN THE STRETCHER. INSTRUCTED TO USE THE CALL BE WHEN NEEDING TO GET UP. PT IS NOT FOLLOWING INSTRUCTIONS TO USE THE CALL MCGRATH WHEN NEEDING TO GET OUT OF BED. HE GOT UP AND OUT OF BED BY HIMSELF WITH THE ALPS BOOTS STILL ON. PT WALKED TO THE RESTROOM AND IS NOW SITTING IN THE CHAIR. WILL CONTINUE TO MONITOR
--- NOTE | 2016-12-06 15:30 | NUR ---
12/06 CASE SIMON- MEAGAN SEPULVEDA CAME AND SPOKE WITH ME REGARDING PT. PER MEAGAN HE IS STILL WAITING FOR CALL BACK FROM DR MATY CAMPBELL OUTPATIENT PSYCH BUT IS LEANING MORE TOWARDS [facility] PSYCH AT THIS TIME.
--- NOTE | 2016-12-06 15:37 | NUR ---
6/7 CASE MGMT-[facility] AT BEDSIDE
[2016-12-06 16:35] VITALS: BP 174/118
--- NOTE | 2016-12-06 21:15 | NUR ---
PT HAS A BED 223-1
--- NOTE | 2016-12-06 22:50 | NUR ---
CALLED REPORT TO [facility] MED UNIT TO [facility]. PT HAD BEEN AGITATED THIS AFTERNOON. REFUSING MEDS. WAS MEDICATED WITH IM HALDOL APPROX [id number] AND SLEPT FOR ABOUT3 HOURS. PT NOW AWAKE AND WALKING INTO HALLS. PT REDIRECTED TO LAY BACK DOWN IN BED AND IS LAYING IN BED AT PRESENT. PT REFUSING PO MEDS. REFUSING TO LET ME PLACE A NEW IV-PT PULLED OUT PREVIOUS IV.
[2016-12-06 22:52] VITALS: BP 145/73
[2016-12-06] MEDS ORDERED: AMLODIPINE BES2.5 M1 PO (23:03)
[2016-12-06] MEDS ORDERED: LATUDA40 M1 PO (23:04)
--- NOTE | 2016-12-06 23:05 | NUR ---
PT RESTING QUIELTY. APPEARS TO BE SLEEPING. PAGED HOUSE STAFF X2 TO REPORT THAT PT REFUSING MEDS AND NEW IV PLACEMENT. AWAITING CALL BACK FROM HOUSE STAFF
[2016-12-06 23:30] VITALS: BP 142/80
--- NOTE | 2016-12-06 23:50 | NUR ---
RECEIVED PT FROM ER @ 0110. PT ABLE TO TELL HIS NAME, AND CURRENT MONTH. CONFUSED ABOUT WHERE HE IS RIGHT NOW. DENIES PAIN. NO H/O SEIZURES PER PT. H/O FALLS PER PT. FALL PREC IN PLACE. PT SAFETY MONITOR AT BEDSIDE. PT WAS SLIGHTLY UNSTEADY WALKING FROM THE STRETCHER TO THE BED. NO INAPPROPRIATE BEHAVIOR NOTICED SO FAR. SKIN INT. ALPS NOT PLACED AT THIS TIME B/C PT AGITATED AND OOB AT TIMES PER MANAGER BANQUET. NO IV IN PLACE. WILL CONTINUE TO MONITOR.
[2016-12-07 06:25] VITALS: BP 150/74
--- NOTE | 2016-12-07 07:16 | PN- Housestaff ---
VINAY GREEN,[facility] 12/07/16 0716: Subjective Follow-up For: Confusion Depression Bipolar Subjective: Patient was seen and examined this morning, lying comfortably in bed, oriented to place, confused, reported headache and blurry vision. Patient was found to have high blood pressure 150-160 systolic, amlodipine 2.5 mg was started. Nurse reported that patient was refusing his medication this morning. Review of Systems Constitutional: Reports: see HPI. Objective Last 24 Hrs of Vital Signs/I&O Vital Signs Date Time Temp Pulse Resp B/P B/P Pulse O2 O2 Flow FiO2 Mean Ox Delivery Rate 12/07 0625 98.6 60 18 150/74 96 Room Air 12/06 2330 98.2 61 18 142/80 95 Room Air 12/06 2252 98.2 88 18 145/73 97 Room Air 12/06 1635 97.5 20 174/118 Intake & Output 12/07 1600 08 0800 06/08 0000 Intake Total 100 Output Total Balance 100 Intake, Oral 100 Patient 97.522 kg Weight Physical Exam General Appearance: Cooperative, No Acute Distress Skin: No Rashes, No Breakdown, No Significant Lesion Skin Temp/Moisture Exam: Warm/Dry HEENT: Atraumatic, PERRLA, EOMI, Mucous Membr. moist/pink, erythema and white discharge of left eye Neck: Supple, No JVD Cardiovascular: Regular Rate, Normal S1, Normal S2, No Murmurs Lungs: Clear to Auscultation, Normal Air Movement Abdomen: Normal Bowel Sounds, Soft, No Tenderness, No Hepatospenomegaly, No Masses Neurological: Normal Gait, Normal Speech, Strength at 5/5 X4 Ext, Normal Tone, Sensation Intact, Cranial Nerves 3-12 NL, Reflexes 2+ Extremities: No Clubbing, No Cyanosis, No Edema, Normal Pulses, No Tenderness/ Swelling Assessment/Plan Assessment: is 81-year-old male with past medical history significant for depression and bipolar disorder, hypertension, hyperlipidemia, anemia, bilateral carotid plaque, chronic kidney disease who presented to ED with chief complaint of confusion for 2-3 days per family report: On admission vital signs temperature 96.5, pulse 71, blood pressure 168/71, saturating 97% on room air Assessment: #Confusion #Bipolar disorder #Depression #Hypertension #Hyperlipidemia #Chronic kidney disease Plan Depression, bipolar disease, confusion -Patient seems to have hospital-acquired delirium, worsening confusion. Sitter was started yesterday -Patient presented with history of confusion on top of extensive psych history that includes depression and bipolar -Lab works are negative for infection or metabolic abnormality that could contribute to new onset of confusion -TSH 0.72, FreeT4 1.22 -Vitamin B12 434, folate 15.9 within normal -Urine toxicology negative for any drugs -CT head negative for intracranial pathology -Chest x-ray negative for any acute changes -ed case manager was contacted, decision was made to alf placement in a state of [facility] -I contacted patient's daughter Charmaine Munoz on #[phone] and confirmed his medication list -Psych consultation, will continue to follow recommendation Hypertension and hyperlipidemia -Amlodipine 2.5 mg daily, noticed that home dose is amlodipine 10 mg daily -Start aspirin 81 daily -Start Lipitor 80 mg daily Conjunctivitis -Patient noticed to have left eye erythema and white discharge -Start erythromycin eyedrops 4 times daily Full code DVT prophylaxis with SC heparin Diet heart healthy Problem List: 1. Depression 2. Hypertension 3. Bipolar 1 disorder, depressed 4. Confusion Pain Ratin Pain Location: none Pain Goal: Pain 4 or less Pain Plan: Mild pain pathway Tomorrow's Labs & Rationales: CBC, BMP RITA GREEN,[facility] 12/07/16 1120: Attending MD Review Statement Attending Statement Attending MD Statement: examined this patient, discuss w/resident/PA/COORDINATOR OF ONLINE PROGRAMS, agreed w/resident/PA/COORDINATOR OF ONLINE PROGRAMS, reviewed EMR data (avail), discussed with nursing, discussed with case mgmt, reviewed images, amended to note Attending Assessment/Plan: Patient seen and examined, denies any complaints but he is refusing his medications. He has a sitter at the bedside. He is somewhat confused. Vital Signs Date Time Temp Pulse Resp B/P B/P Pulse O2 O2 Flow FiO2 Mean Ox Delivery Rate 12/07 0625 98.6 60 18 150/74 96 Room Air 12/06 2330 98.2 61 18 142/80 95 Room Air 12/06 2252 98.2 88 18 145/73 97 Room Air 12/06 1635 97.5 20 174/118 12/06 1234 98.0 76 18 139/94 96 12/06 1227 Room Air 12/06 1212 Room Air on exam; awake, somewhat confused, NAD. cv; s1,s2 rrr resp; clear. abd; soft, nt, bs+ ext; no edema. no labs today. A/P: Patient is a 81-year-old male with past medical history significant for depression, bipolar disorder who is admitted with altered mental state likely 2/ 2 to worsening chronic psych issues. Also hx of htn, had mild KIKI. Please check BEP today to follow Cr. BP was slightly high, will resume his amlodipine and monitor. If BP stays high, other antihypertensives can be restarted. Psych Mx per Psychiatry. DVT Px; Hep sq. Needs [facility] bed for discharge.
--- NOTE | 2016-12-07 07:59 | Patient Discharge Instructions ---
Discharge Instructions General Discharge Information Special Instructions: PLEASE FOLLOW UP WITH YOUR PCP AFTER DISCHARGE Acute Coronary Syndrome Inclusion Criteria At DC or during hospital stay patient has or had the following: ACS DIAGNOSIS No Discharge Core Measures Meds if any: Prescribed or Continued at Discharge Meds if any: NOT Prescribed or Continued at Discharge Congestive Heart Failure Inclusion Criteria At DC or during hospital stay patient has or had the following: CHF DIAGNOSIS No Discharge Core Measures Meds if any: Prescribed or Continued at Discharge Meds if any: NOT Prescribed or Continued at Discharge Cerebrovascular accident Inclusion Criteria At DC or during hospital stay patient has or had the following: CVA/TIA Diagnosis No Discharge Core Measures Meds if any: Prescribed or Continued at Discharge Meds if any: NOT Prescribed or Continued at Discharge Venous thromboembolism Inclusion Criteria VTE Diagnosis No VTE Type NONE VTE Confirmed by (Test) NONE Discharge Core Measures - Per Current guidelines, there needs to be overlap - treatment for the first 5 days of Warfarin therapy. - If discharged on Warfarin prior to 5 days of - overlap therapy, the patient will need to be - assessed for post discharge needs including - *Post discharge parental anticoagulation - *Warfarin and/or parental anticoagulation education - *Follow up date to check INR post discharge At least 5 days overlap therapy as Inpatient Yes Meds if any: Prescribed or Continued at Discharge Note: Overlap Therapy is Warfarin and Anticoagulant Meds if any: NOT Prescribed or Continued at Discharge
[2016-12-07] MEDS ORDERED: VITAMIN D1000 UNIT PO (13:31)
[2016-12-07] MEDS ORDERED: TOPROL XL25 M1 PO (13:32)
[2016-12-07] MEDS ORDERED: MULTI-DAY VITA1 EACH PO (13:32)
[2016-12-07] MEDS ORDERED: ATIVAN0.5 M1 PO (13:35)
[2016-12-07] MEDS ORDERED: NORVASC10 M1 PO (13:57)
--- NOTE | 2016-12-07 14:57 | NUR ---
PT BP 160/90- MD MCLEAN AWARE AND ASSISTED THIS RN IN ADMINISTERING AMOLIDIPINE, WILL RECHECK BP. SITTER @ BEDSIDE
--- NOTE | 2016-12-07 15:10 | PN- Psychiatry ---
Assessment/Plan Impression: Identifying Info: 81-year-old male with a history of bipolar disorder brought in by ambulance to [facility] emergency department for increasing confusion. He was initially recommended for geriatric psychiatry placement and is to be admitted to medicine while appropriate placement is found. Seen today for reevaluation of mental status. SUBJECTIVE Pt states "I want to go to a convalescent home." Pt reports that he becomes "a little dizzy from time to time," but states no other complaints. Reports at times he has some confusion/disorientation and can't remember which hospital he is at. OBJECTIVE Mental Status Exam Presentation/Appearance: Hospital garb. Sitting in room, calm and cooperative with interview. Orientation: Person, place, day, month, year, and situation Sensorium: Awake and alert Eye contact: Adequate Affect: Blunted Mood: "Decent, fair" Depression: Endorses "a little" Anxiety: Denies Thought Content: - Denies SI/HI, AH/VH - Denies Hopeless/Helpless Thoughts Thought Process: By report confused at times, able to respen Associations: Appropriate Speech: Normal tone and rate Judgment: Some impairment Insight: Some impairment Cognition: Memory: Endorses some issues Attention/Concentration: Grossly intact on interview Fund of Knowledge: Adequate Abstractions: Did not assess MMSE: MMSE compled on 12/05/16 was 25/30 suggestive of no cognitive impairment Per nursing report pt has been intermittently irrtible and non-compliant with medication, including blood pressure meds. No reports of hallucinations or delusions today. Organic causes of delirium have been ruled out per house staff note. ASSESSMENT 81-year-old male with long history of bipolar disorder presents to [facility] with increasing confusion since hospitalization at [facility] 1 month ago. At present all the patient displays low mood without other complaint. Staff reports intermittent med noncompliance which at one point led to hypertension. He denies suicidality and homicidality. No reports of psychotic sx today. Per previous note patient can no longer be cared for at home due to current alterations. Diagnosis Bipolar disorder Rule out unspecified neurocognitive disorder Rule out delirium of unknown etiology Total time of 45 minutes was spent with the patient with more than 50% of the time spent in counseling and/or coordination of care. Suggestion: 1. Please continue to avoid benzodiazepines, opioid analgesics, and meds with strong anticholinergic properties as much as possible to prevent further confusion. 2. Please initiate the following nonpharmacologic interventions: -Avoid nursing and medical procedures during sleep hours whenever possible - Cluster at night interventions that must be completed as much as possible to minimize sleep disruption - Decrease noise patient area during sleeping hours - Reduce lighting at night - Ensure patient has any sensory aids close by that he regularly uses 3. Continue psychotropics as currently ordered. 4. Continue to persue [facility] at present. 5. Placed a follow up call to Dr. Leslie MD, from [facility], , left a message for a call back. Thank you for including psychiatry in this case we will continue to follow. Subjective Subjective: as above Objective Last 24 Hrs of Vital Signs/I&O Current Medications Sig/Francisca Start time Last Medication Dose Route Stop Time Status Admin Amlodipine Besylate 10 MG DAILY 12/08 1000 AC PO Amlodipine Besylate 10 MG DAILY 12/08 1000 CAN PO Amlodipine Besylate 2.5 MG DAILY 12/07 1000 DC 12/07 PO 1125 Aspirin Buffered 81 MG DAILY 12/07 1325 AC PO Atorvastatin Calcium 80 MG 1700 12/07 1700 AC PO Erythromycin 1 YARELY 4 TIMES/DAY 12/07 1400 AC OPH Haloperidol 0 .STK-MED ONE 12/06 1750 DC .ROUTE Haloperidol 5 MG ONCE ONE 12/06 1745 DC 12/06 IM 12/06 1746 1745 Heparin Sodium 5,000 UNIT Q8 12/07 0600 AC 12/07 (Porcine) SC 0558 Heparin Sodium 5,000 UNIT Q8 12/05 2200 DC 12/06 (Porcine) SC 0628 Lorazepam 0.5 MG ONCE ONE 12/06 1745 CAN IM 12/06 174 Lorazepam 0.5 MG DAILY NEEDED PRN 12/05 2014 AC PO 12/12 2013 Lurasidone HCl 40 MG DAILY 12/06 1000 AC 12/07 PO 09 Tamsulosin HCl 0.8 MG QPM 12/07 2200 AC PO Venlafaxine HCl 75 MG TID 12/05 2200 AC 12/07 PO 09 Current Medications Sig/Francisca Start time Last Medication Dose Route Stop Time Status Admin Amlodipine Besylate 10 MG DAILY 12/08 1000 AC PO Amlodipine Besylate 10 MG DAILY 12/08 1000 CAN PO Amlodipine Besylate 2.5 MG DAILY 12/07 1000 DC 12/07 PO 1125 Aspirin Buffered 81 MG DAILY 12/07 1325 AC PO Atorvastatin Calcium 80 MG 1700 12/07 1700 AC PO Erythromycin 1 YARELY 4 TIMES/DAY 12/07 1400 AC OPH Haloperidol 0 .STK-MED ONE 12/06 1750 DC .ROUTE Haloperidol 5 MG ONCE ONE 12/06 1745 DC 12/06 IM 12/06 1746 1745 Heparin Sodium 5,000 UNIT Q8 12/07 0600 AC 12/07 (Porcine) SC 0558 Heparin Sodium 5,000 UNIT Q8 12/05 2200 DC 12/06 (Porcine) SC 0628 Lorazepam 0.5 MG ONCE ONE 12/06 1745 CAN IM 12/06 1746 Lorazepam 0.5 MG DAILY NEEDED PRN 12/05 2014 AC PO 12/12 2013 Lurasidone HCl 40 MG DAILY 12/06 1000 AC 12/07 PO 0927 Tamsulosin HCl 0.8 MG QPM 12/07 2200 AC PO Venlafaxine HCl 75 MG TID 12/05 2200 AC 12/07 PO 0926 Vital Signs Date Time Temp Pulse Resp B/P B/P Pulse O2 O2 Flow FiO2 Mean Ox Delivery Rate 12/07 1125 100 160/90 12/07 624 98.6 60 18 150/74 96 Room Air 12/06 2330 98.2 61 18 142/80 95 Room Air 12/06 2252 98.2 88 18 145/73 97 Room Air 12/06 1635 97.5 20 174/118 Intake & Output 12/07 1600 08 0800 12/07 0000 Intake Total 360 100 Output Total Balance 360 100 Intake, Oral 360 100 Number 0 Bowel Movements Patient 215 lb Weight
[2016-12-07 15:26] VITALS: BP 140/80
--- NOTE | 2016-12-07 16:23 | NUR ---
PT B/P 140/80, MD MCLEAN AWARE. PT VSS, COMFORTABLE IN BED, SITTER AT BEDSIDE
[2016-12-07 21:59] VITALS: BP 170/100
[2016-12-08 06:35] VITALS: BP 100/70
--- NOTE | 2016-12-08 08:06 | PN- Housestaff ---
See Addendum Subjective Follow-up For: Confusion Depression Bipolar Subjective: Patient was seen and examined this morning, sitting comfortably in bed, looked much better than yesterday, alert and oriented 2. Patient denied any headache, reported some dizziness. Patient has been refusing his medication, eyedrops for bilateral eyelid erythema and left eye white discharge. Patient denied any eye pain or eye itching. Vital signs are stable, no overnight events was reported by the nurse except for confusion but no agitation. Review of Systems Constitutional: Reports: see HPI. Objective Last 24 Hrs of Vital Signs/I&O Vital Signs Date Time Temp Pulse Resp B/P B/P Pulse O2 O2 Flow FiO2 Mean Ox Delivery Rate 12/08 0535 97.6 64 20 100/70 95 Room Air 12/07 2159 98.1 83 20 170/100 96 Room Air 12/07 2016 162/118 12/08 2015 162/118 12/07 1526 98.0 99 20 140/80 97 08 1125 100 160/90 Intake & Output 12/08 1600 12/08 0800 12/08 0000 Intake Total 550 Output Total Balance 550 Intake, Oral 550 Physical Exam General Appearance: Alert, Cooperative, No Acute Distress, oriented x2 Skin: No Rashes, No Breakdown, No Significant Lesion Skin Temp/Moisture Exam: Warm/Dry HEENT: Atraumatic, PERRLA, EOMI, Mucous Membr. moist/pink, bilateral erythematous eyelid, white discharge of left eye Neck: Supple, No JVD Cardiovascular: Regular Rate, Normal S1, Normal S2, No Murmurs Lungs: Clear to Auscultation, Normal Air Movement Abdomen: Normal Bowel Sounds, Soft, No Tenderness Neurological: Normal Gait, Normal Speech, Strength at 5/5 X4 Ext, Normal Tone, Sensation Intact, Cranial Nerves 3-12 NL, Reflexes 2+ Extremities: No Clubbing, No Cyanosis, Normal Pulses, No Tenderness/Swelling, bilateral lower extremity trace pedal edema Assessment/Plan Assessment: is 81-year-old male with past medical history significant for depression and bipolar disorder, hypertension, hyperlipidemia, anemia, bilateral carotid plaque, chronic kidney disease who presented to ED with chief complaint of confusion for 2-3 days per family report: On admission vital signs temperature 96.5, pulse 71, blood pressure 168/71, saturating 97% on room air Assessment: #Confusion #Bipolar disorder #Depression #Hypertension #Hyperlipidemia #Acute on chronic kidney disease Plan Depression, bipolar disease, confusion -Patient seems to have hospital-acquired delirium, worsening confusion. Has sitter -Patient presented with history of confusion on top of extensive psych history that includes depression and bipolar -Lab works are negative for infection or metabolic abnormality that could contribute to new onset of confusion -TSH 0.72, FreeT4 1.22 -Vitamin B12 434, folate 15.9 within normal -Urine toxicology negative for any drugs -CT head negative for intracranial pathology -Chest x-ray negative for any acute changes -materials manager was contacted, decision was made to group home placement in a state of [facility] psych -I contacted patient's daughter Charmaine Munoz on #[phone] and confirmed his medication list -Psych consultation, will continue to follow recommendation Hypertension and hyperlipidemia -Amlodipine 2.5 mg daily, noticed that home dose is amlodipine 10 mg daily -Continue aspirin 81 daily -Continue Lipitor 80 mg daily -Start metoprolol XL 25 mg daily Acute on chronic kidney disease -BUN/creatinine 30/1.9 -1 L normal saline 1x1 running at 75 mL/h -Encourage fluid oral intake Conjunctivitis -Left eye erythema and white discharge -Erythromycin eyedrops 4 times daily, patient refused eyedrops yesterday, I spoke with him today and he is willing to get his medication Full code DVT prophylaxis with SC heparin Diet heart healthy Problem List: 1. Confusion 2. Bipolar 1 disorder, depressed 3. Depression, major, recurrent Pain Ratin Pain Location: NONE Pain Goal: Pain 4 or less Pain Plan: Mild pain pathway Tomorrow's Labs & Rationales: BMP
[2016-12-08 08:25] LABS: ABSOLUTE BASOPHIL COUNT 0 /CUMM (0.0-0.2); ABSOLUTE EOSINOPHIL COUNT 0.2 /CUMM (0.0-0.7); ABSOLUTE GRANULOCYTE CT 4.4 /CUMM (1.4-6.5); ABSOLUTE LYMPH COUNT 1.7 /CUMM (1.2-3.4); ABSOLUTE MONOCYTE COUNT 0.6 /CUMM (0.10-0.60); BASOPHIL % 0.3 % (0.0-2.0); EOSINOPHIL % 3.5 % (0-5); GRANULOCYTE % 63.2 % (42.2-75.2); HEMATOCRIT 36.9 % (42-52); MEAN CORPUSCULAR HGB 29.6 PG (27.0-31.0); MEAN CORPUSCULAR HGB CONC 33.3 G/DL (33.0-37.0); MEAN CORPUSCULAR VOLUME 88.8 FL (80.0-94.0); MEAN PLATELET VOLUME 8.4 FL (7.4-10.4); PLATELET COUNT 155 /CUMM (130-400); RBC DISTRIBUTION WIDTH 13.3 % (11.5-14.5); RED BLOOD CELL CT 4.15 /CUMM (4.70-6.10)
[2016-12-08 14:36] VITALS: BP 140/88
--- NOTE | 2016-12-08 16:24 | PN- Psychiatry ---
Assessment/Plan Impression: Identifying Info: 81-year-old male with a history of bipolar disorder brought in by ambulance to [facility] emergency department for increasing confusion. He was initially recommended for geriatric psychiatry placement and is to be admitted to medicine while appropriate placement is found. Seen today for reevaluation of mental status. SUBJECTIVE Patient today presents without complaint. Is agreeable to go to psychiatry before "convalescent home." Expresses disappointment that his fiance has visited and left. OBJECTIVE Mental Status Exam Presentation/Appearance: Hospital garb. Sitting in room, calm and cooperative with interview. Orientation: Person, day, month, year, and situation, states place is "[facility]" Sensorium: Somnolent but easily aroused Eye contact: Adequate Affect: Blunted Mood: "Fair" Depression: Denies Anxiety: Denies Thought Content: - Denies SI/HI, AH/VH - Denies Hopeless/Helpless Thoughts Thought Process: By report confused at times Associations: Appropriate Speech: Normal tone and rate Judgment: Some impairment Insight: Some impairment Cognition: Memory: Endorses some issues Attention/Concentration: Grossly intact on interview Fund of Knowledge: Adequate Abstractions: Did not assess MMSE: MMSE compled on 12/05/16 was 25/30 suggestive of no cognitive impairment Per nursing report pt has been intermittently up and attempting to wander, at those times she is very difficult to redirect. ASSESSMENT 81-year-old male with long history of bipolar disorder presents to [facility] with increasing confusion since hospitalization at [facility] 1 month ago. At present all the patient displays low mood without other complaint. Staff reports intermittent med noncompliance which at one point led to hypertension. He denies suicidality and homicidality. No reports of psychotic sx today. Per previous note patient can no longer be cared for at home due to current alterations. Diagnosis Bipolar disorder, current episode depressed Rule out unspecified neurocognitive disorder with behavioral disturbances Rule out delirium of unknown etiology Total time of 45 minutes was spent with the patient with more than 50% of the time spent in counseling and/or coordination of care. Suggestion: 1. Please continue to avoid benzodiazepines, opioid analgesics, and meds with strong anticholinergic properties as much as possible to prevent further confusion. 2. Please initiate the following nonpharmacologic interventions: -Avoid nursing and medical procedures during sleep hours whenever possible - Cluster at night interventions that must be completed as much as possible to minimize sleep disruption - Decrease noise patient area during sleeping hours - Reduce lighting at night - Ensure patient has any sensory aids close by that he regularly uses 3. Continue psychotropics as currently ordered. 4. Continue to persue [facility]. Thank you for including psychiatry in this case we will continue to follow. Subjective Subjective: as above Objective Last 24 Hrs of Vital Signs/I&O Current Medications Sig/Francisca Start time Last Medication Dose Route Stop Time Status Admin Amlodipine Besylate 10 MG DAILY 12/08 1000 DC PO Amlodipine Besylate 2.5 MG DAILY 12/08 1000 AC 12/08 PO 1042 Aspirin Buffered 81 MG DAILY 12/07 1325 AC 12/08 PO 1042 Atorvastatin Calcium 80 MG 1700 12/07 1700 AC 12/07 PO 1548 Docusate Sodium 100 MG ONCE ONE 12/08 0900 DC PO 12/08 0901 Erythromycin 1 YARELY 4 TIMES/DAY 12/07 1400 AC 12/08 OPH 1044 Heparin Sodium 5,000 UNIT Q8 12/07 0600 AC 12/08 (Porcine) SC 0539 Lorazepam 0.5 MG DAILY NEEDED PRN 12/05 2014 AC PO 12/12 2013 Lurasidone HCl 40 MG DAILY 12/06 1000 AC 12/08 PO 1042 Metoprolol Succinate 25 MG DAILY 12/07 1645 AC 12/08 PO 1043 Patient Medication 1 ED .STK-MED ONE 12/08 1433 DC Teaching ED 12/08 1434 Sodium Chloride 1,000 ML ONCE ONE 12/08 1000 DC IV 12/08 2319 Tamsulosin HCl 0.8 MG QPM 12/07 2199 AC 12/07 PO 2016 Venlafaxine HCl 75 MG TID 12/05 220 AC 12/08 PO 1049 Laboratory Tests 12/08/16 0630: Anion Gap 12, Estimated GFR 34 L, BUN/Creatinine Ratio 15.8, CBC w Diff NO MAN DIFF REQ, RBC 4.15 L, MCV 88.8, MCH 29.6, RDW 13.3, MPV 8.4, Gran % 63.2, Lymphocytes % 23.7, Monocytes % 9.3, Eosinophils % 3.5, Basophils % 0.3, Absolute Granulocytes 4.4, Absolute Lymphocytes 1.7, Absolute Monocytes 0.6, Absolute Eosinophils 0.2, Absolute Basophils 0, PUBS MCHC 33.3 Vital Signs Date Time Temp Pulse Resp B/P B/P Pulse O2 O2 Flow FiO2 Mean Ox Delivery Rate 12/08 1436 97.5 88 20 140/88 95 12/08 1043 64 130/82 12/08 1042 64 130/82 12/08 0947 Room Air 12/08 0933 Room Air 12/08 0535 97.6 64 20 100/70 95 Room Air 12/07 2159 98.1 83 20 170/100 96 Room Air 12/07 2016 162/118 12/08 2015 162/118 Intake & Output 12/08 1600 12/08 0800 12/08 0000 Intake Total 900 0 550 Output Total Balance 900 0 550 Intake, IV 0 Intake, Oral 900 0 550 Number 0 Bowel Movements
[2016-12-08 23:00] VITALS: BP 120/66
[2016-12-09 07:04] VITALS: BP 134/74
--- NOTE | 2016-12-09 08:27 | PN- Housestaff ---
VINAY GREEN,[facility] 12/09/16 0827: Subjective Follow-up For: Confusion Depression Bipolar Subjective: Patient was seen and examined this morning, responding to verbal stimuli as he was sleeping, answer questions appropriately, follow commands, vital signs are stable, blood pressure systolic around 130 to 140, patient received his medication. No overnight agitation continued to have sitter for confusion. patient offered no complaints. Labs reviewed today, creatinine change to be 1.9 above baseline, patient didn't receive fluid yesterday because his blood pressure improved, will give one bag of D5 half-normal running at 75 mL per hour and recheck creatinine in a.m. Review of Systems Constitutional: Reports: see HPI. Objective Last 24 Hrs of Vital Signs/I&O Vital Signs Date Time Temp Pulse Resp B/P B/P Pulse O2 O2 Flow FiO2 Mean Ox Delivery Rate 12/09 0704 97.6 53 20 134/74 93 Room Air 12/08 2300 98.8 73 18 120/66 96 Room Air 12/08 2213 73 120/66 12/08 1436 97.5 88 20 140/88 95 12/08 1043 64 130/82 12/08 1042 64 130/82 Intake & Output 12/09 1600 12/09 0800 12/09 0000 Intake Total 120 500 Output Total 450 Balance -330 500 Intake, Oral 120 500 Output, Urine 450 Physical Exam General Appearance: Alert, Oriented X3, Cooperative, No Acute Distress Skin: No Rashes, No Breakdown, No Significant Lesion Cardiovascular: Regular Rate, Normal S1, Normal S2, No Murmurs Lungs: Clear to Auscultation, Normal Air Movement Abdomen: Normal Bowel Sounds, Soft, No Tenderness, No Hepatospenomegaly, No Masses Neurological: Normal Speech, Strength at 5/5 X4 Ext, Normal Tone, Sensation Intact, Cranial Nerves 3-12 NL, Reflexes 2+ Extremities: No Clubbing, No Cyanosis, No Edema, Normal Pulses, No Tenderness/ Swelling Assessment/Plan Assessment: is 81-year-old male with past medical history significant for depression and bipolar disorder, hypertension, hyperlipidemia, anemia, bilateral carotid plaque, chronic kidney disease who presented to ED with chief complaint of confusion for 2-3 days per family report: On admission vital signs temperature 96.5, pulse 71, blood pressure 168/71, saturating 97% on room air Assessment: #Confusion #Bipolar disorder #Depression #Hypertension #Hyperlipidemia #Acute on chronic kidney disease Plan Depression, bipolar disease, confusion -Patient seems to have hospital-acquired delirium, worsening confusion. Has sitter -Patient presented with history of confusion on top of extensive psych history that includes depression and bipolar -Lab works are negative for infection or metabolic abnormality that could contribute to new onset of confusion -TSH 0.72, FreeT4 1.22 -Vitamin B12 434, folate 15.9 within normal -Urine toxicology negative for any drugs -CT head negative for intracranial pathology -Chest x-ray negative for any acute changes -manager animation was contacted, decision was made to [place] -I contacted patient's daughter Charmaine Munoz on #[phone] and confirmed his medication list -Psych consultation, will continue to follow recommendation Hypertension and hyperlipidemia -Amlodipine 2.5 mg daily, noticed that home dose is amlodipine 10 mg daily -Continue aspirin 81 daily -Continue Lipitor 80 mg daily -Start metoprolol XL 25 mg daily Acute on chronic kidney disease -BUN/creatinine 30/1.9 -1 L normal saline 1x1 running at 75 mL/h -Encourage fluid oral intake Conjunctivitis -Left eye erythema and white discharge -Erythromycin eyedrops 4 times daily, patient refused eyedrops yesterday, I spoke with him today and he is willing to get his medication Full code DVT prophylaxis with SC heparin Diet heart healthy Problem List: 1. Confusion 2. Bipolar 1 disorder, depressed 3. Depression, major, recurrent Pain Ratin Pain Location: none Pain Goal: Pain 4 or less Pain Plan: Mild pain pathway Tomorrow's Labs & Rationales: BROOKE MCCARTHY MD 12/09/16 1541: Attending MD Review Statement Attending Statement Attending MD Statement: examined this patient, discuss w/resident/PA/HIGH SCHOOL MUSIC TEACHER, agreed w/resident/PA/HIGH SCHOOL MUSIC TEACHER, reviewed EMR data (avail) Attending Assessment/Plan: Patient doing well. Continue current management.
[2016-12-09 14:06] VITALS: BP 120/60
--- NOTE | 2016-12-09 16:06 | NUR ---
UNABLE TO ESTABLISH IV ACCESS FOR 1L OF IV FLUIDS, MD MCLEAN AWARE, ENCOURAGING PO FLUID INTAKE.
[2016-12-09 22:04] VITALS: BP 140/80
[2016-12-10 06:14] VITALS: BP 132/70
--- NOTE | 2016-12-10 08:16 | PN- Housestaff ---
VINAY GREEN,[facility] 12/10/16 0816: Subjective Follow-up For: Confusion Depression Bipolar Subjective: Patient was seen and examined this morning, vital signs are stable, no overnight events reported by the nurse of the patient, patient offered no complaints. could not get IV line for IV fluid yesterday. Review of Systems Constitutional: Reports: see HPI. Objective Last 24 Hrs of Vital Signs/I&O Vital Signs Date Time Temp Pulse Resp B/P B/P Pulse O2 O2 Flow FiO2 Mean Ox Delivery Rate 12/10 1011 130/60 12/10 1011 130/60 12/10 0614 98.2 74 20 132/70 93 Room Air 12/09 2204 98.0 60 20 140/80 96 Room Air 12/09 2146 140/80 12/09 1406 98.0 63 18 120/60 95 Room Air 12/09 1048 53 134/74 12/09 1048 53 134/74 Intake & Output 12/10 1600 12/10 0800 12/10 0000 Intake Total 120 120 Output Total Balance 120 120 Intake, Oral 120 120 Physical Exam General Appearance: Alert, Cooperative, No Acute Distress Skin: No Rashes, No Breakdown, No Significant Lesion HEENT: Atraumatic, PERRLA, EOMI, Mucous Membr. moist/pink Cardiovascular: Regular Rate, Normal S1, Normal S2, No Murmurs Lungs: Clear to Auscultation, Normal Air Movement Abdomen: Normal Bowel Sounds, Soft, No Tenderness, No Hepatospenomegaly, No Masses Neurological: Normal Gait, Normal Speech, Strength at 5/5 X4 Ext, Normal Tone, Sensation Intact, Cranial Nerves 3-12 NL, Reflexes 2+ Extremities: No Clubbing, No Cyanosis, No Edema, Normal Pulses, No Tenderness/ Swelling Assessment/Plan Assessment: is 81-year-old male with past medical history significant for depression and bipolar disorder, hypertension, hyperlipidemia, anemia, bilateral carotid plaque, chronic kidney disease who presented to ED with chief complaint of confusion for 2-3 days per family report: On admission vital signs temperature 96.5, pulse 71, blood pressure 168/71, saturating 97% on room air Assessment: #Confusion #Bipolar disorder #Depression #Hypertension #Hyperlipidemia #Acute on chronic kidney disease Plan Depression, bipolar disease, confusion -Patient seems to have hospital-acquired delirium, worsening confusion. Has sitter -Patient presented with history of confusion on top of extensive psych history that includes depression and bipolar -Lab works are negative for infection or metabolic abnormality that could contribute to new onset of confusion -TSH 0.72, FreeT4 1.22 -Vitamin B12 434, folate 15.9 within normal -Urine toxicology negative for any drugs -CT head negative for intracranial pathology -Chest x-ray negative for any acute changes -medical manager was contacted, decision was made to [place] -I contacted patient's daughter Charmaine Munoz on #[phone] and confirmed his medication list -Psych consultation, will continue to follow recommendation Hypertension and hyperlipidemia -Amlodipine 2.5 mg daily, noticed that home dose is amlodipine 10 mg daily -Continue aspirin 81 daily -Continue Lipitor 80 mg daily -Start metoprolol XL 25 mg daily Acute on chronic kidney disease -BUN/creatinine 30/1.9 -1 L normal saline 1x1 running at 75 mL/h -Encourage fluid oral intake Conjunctivitis -Left eye erythema and white discharge -Erythromycin eyedrops 4 times daily, patient refused eyedrops yesterday, I spoke with him today and he is willing to get his medication Full code DVT prophylaxis with SC heparin Diet heart healthy Problem List: 1. Confusion 2. Bipolar 1 disorder, depressed 3. Depression, major, recurrent Pain Ratin Pain Location: none Pain Goal: Pain 4 or less Pain Plan: Mild pain pathway Tomorrow's Labs & Rationales: FALLON LOYA MD,BROOKE 12/10/16 1114: Attending MD Review Statement Attending Statement Attending MD Statement: examined this patient, discuss w/resident/PA/FISCAL AGENT, agreed w/resident/PA/FISCAL AGENT, reviewed EMR data (avail)
[2016-12-10 14:38] VITALS: BP 126/72
--- NOTE | 2016-12-10 23:37 | NUR ---
SHIFT NOTE 7P-11P. PT IS AOX2, DISORIENTED TO TIME. SLEPT MOST OF SHIFT BUT WOKE UP FOR MEDICATIONS AND TO GO TO THE BATHROOM. PATIENT SAFETY MONITOR PRESENT. PT ASKED FOR BATHROOM ASSISTANCE APPROPRIATELY, DID NOT ATTEMPT TO GET UP ON HIS OWN. DENIES PAIN. D5 1/2NS INFUSING INTO 22 IN .
[2016-12-11 06:43] VITALS: BP 114/70
--- NOTE | 2016-12-11 07:07 | PN- Housestaff ---
VINAY GREEN,[facility] 12/11/16 0707: Subjective Follow-up For: Confusion Depression Bipolar Subjective: Patient was seen and examined, awake and alert, offered no complaints, vital signs are stable. Review of Systems Constitutional: Reports: see HPI. Objective Last 24 Hrs of Vital Signs/I&O Vital Signs Date Time Temp Pulse Resp B/P B/P Pulse O2 O2 Flow FiO2 Mean Ox Delivery Rate 12/11 1427 97.7 70 20 120/70 96 Room Air 12/11 1039 66 124/80 12/11 1039 97.5 66 20 124/80 12/11 0643 97.5 66 20 114/70 94 Room Air 12/10 2215 97.5 68 18 94 12/10 2113 70 134/74 Intake & Output 12/11 1600 12/11 0800 12/11 0000 Intake Total 543 536 6176 Output Total 500 Balance 480 100 600 Intake, IV 600 Intake, Oral 480 100 500 Output, Urine 500 Physical Exam General Appearance: Alert, Cooperative, No Acute Distress Cardiovascular: Regular Rate, Normal S1, Normal S2, No Murmurs Lungs: Clear to Auscultation, Normal Air Movement Abdomen: Normal Bowel Sounds, Soft, No Tenderness, No Hepatospenomegaly, No Masses Neurological: Normal Gait, Normal Speech, Strength at 5/5 X4 Ext, Normal Tone, Sensation Intact, Cranial Nerves 3-12 NL, Reflexes 2+ Extremities: No Clubbing, No Cyanosis, No Edema, Normal Pulses, No Tenderness/ Swelling Assessment/Plan Assessment: is 81-year-old male with past medical history significant for depression and bipolar disorder, hypertension, hyperlipidemia, anemia, bilateral carotid plaque, chronic kidney disease who presented to ED with chief complaint of confusion for 2-3 days per family report: On admission vital signs temperature 96.5, pulse 71, blood pressure 168/71, saturating 97% on room air Assessment: #Confusion #Bipolar disorder #Depression #Hypertension #Hyperlipidemia #Acute on chronic kidney disease Plan Depression, bipolar disease, confusion -DC sitter -Patient presented with history of confusion on top of extensive psych history that includes depression and bipolar -Lab works are negative for infection or metabolic abnormality that could contribute to new onset of confusion -TSH 0.72, FreeT4 1.22 -Vitamin B12 434, folate 15.9 within normal -Urine toxicology negative for any drugs -CT head negative for intracranial pathology -Chest x-ray negative for any acute changes -a p manager was contacted, decision was made to [facility]itentiary [place] -I contacted patient's daughter Charmaine Munoz on #[phone] and confirmed his medication list -Psych consultation, will continue to follow recommendation Hypertension and hyperlipidemia -Amlodipine 2.5 mg daily, noticed that home dose is amlodipine 10 mg daily -Continue aspirin 81 daily -Continue Lipitor 80 mg daily -Continue metoprolol XL 25 mg daily Acute on chronic kidney disease -BUN/creatinine 30/1.9 -1 L normal saline 1x1 running at 75 mL/h -Encourage fluid oral intake Conjunctivitis -Erythromycin eyedrops 4 times daily Full code DVT prophylaxis with SC heparin Diet heart healthy Problem List: 1. Major depression 2. Confusion 3. Bipolar 1 disorder, depressed Pain Ratin Pain Location: None Pain Goal: Pain 4 or less Pain Plan: Pain pathway Tomorrow's Labs & Rationales: None DELFIN SALINAS MD 12/11/16 1226: Attending MD Review Statement Attending Statement Attending MD Statement: examined this patient, discuss w/resident/PA/SUPERVISOR LINE DEPARTMENT, agreed w/resident/PA/SUPERVISOR LINE DEPARTMENT, reviewed EMR data (avail), discussed with nursing, discussed with case mgmt, reviewed images, amended to note Attending Assessment/Plan: Patient seen and examined, offers no complaints. Blood pressure stable on current regimen. Now his right eye is looking erythematous and he has developed conjunctivitis in the right eye. Patient was started on erythromycin ointment initially for the left eye but now his right eye is affected also. Continue current treatment. Continue all other current medications. Patient is awaiting a bed availability at rehabilitation.
[2016-12-11 14:27] VITALS: BP 120/70
--- NOTE | 2016-12-11 14:33 | PN- Psychiatry ---
Assessment/Plan Impression: Identifying Info: 81-year-old male with a history of bipolar disorder brought in by ambulance to [facility] emergency department for increasing confusion. He was initially recommended for geriatric psychiatry placement and is to be admitted to medicine while appropriate placement is found. SUBJECTIVE Pt states "I'm tired," and "always sad." Endorses some side effects from medication including fatigue, blurred vision, dry eyes and mouth. States he doesn't feel like doing anything. He endorses passive SI. Endorses memory issues. OBJECTIVE Mental Status Exam Presentation/Appearance: Hospital garb. lying in bed, calm and cooperative with interview. Orientation: Person, month, year, place, and situation, unable to name date Sensorium: Somnolent but easily aroused Eye contact: Adequate Affect: Blunted Mood: "Fair" Depression: "Always sad" Anxiety: "a little" Thought Content: - Denies SI/HI, AH/VH - Passive SI expressed - Denies Hopeless/Helpless Thoughts Thought Process: More linear Associations: Appropriate Speech: Normal tone and rate Judgment: Some impairment Insight: Some impairment Cognition: Memory: Endorses some issues, "I can't remember the past two days." Attention/Concentration: Grossly intact on interview Fund of Knowledge: Adequate Abstractions: Did not assess MMSE: MMSE completed on 12/05/16 was 25/30 suggestive of no cognitive impairment Per nursing and sitter report pt has been more oriented but is experiencing increased depression. He declined ambulation. Is initially hesitant to eat because "he didn't feel like it." At one point he stated "I just want to ." ASSESSMENT 81-year-old male with long history of bipolar disorder presents to [facility] with increasing confusion since hospitalization at [facility] 1 month ago. At present all the patient displays low mood without other complaint. Staff reports intermittent med noncompliance which at one point led to hypertension. He denies suicidality and homicidality. No reports of psychotic sx today but markedly increased depression. Per previous note patient can no longer be cared for at home due to current alterations. Diagnosis Bipolar disorder, current episode depressed Rule out unspecified neurocognitive disorder with behavioral disturbances Rule out delirium of unknown etiology Total time of 30 minutes was spent with the patient with more than 50% of the time spent in counseling and/or coordination of care. Suggestion: 1. Please continue to avoid benzodiazepines, opioid analgesics, and meds with strong anticholinergic properties as much as possible to prevent further confusion. 2. Please initiate the following nonpharmacologic interventions: -Avoid nursing and medical procedures during sleep hours whenever possible - Cluster at night interventions that must be completed as much as possible to minimize sleep disruption - Decrease noise patient area during sleeping hours - Reduce lighting at night - Ensure patient has any sensory aids close by that he regularly uses 3. Continue psychotropics as currently ordered. 4. Plan for [facility]. Thank you for including psychiatry in this case we will continue to follow. Subjective Subjective: as above Objective Last 24 Hrs of Vital Signs/I&O Current Medications Sig/Francisca Start time Last Medication Dose Route Stop Time Status Admin Amlodipine Besylate 2.5 MG DAILY 12/08 1000 AC 12/11 PO 1039 Aspirin Buffered 81 MG DAILY 12/07 1325 AC 12/11 PO 1038 Atorvastatin Calcium 80 MG 1700 12/07 1700 AC 12/10 PO 1715 Dextrose/Sodium 1,000 ML Q13H 12/10 1030 DC 12/10 Chloride IV 12/10 2329 1042 Erythromycin 1 YARELY 4 TIMES/DAY 12/07 1400 AC 12/11 OPH 1317 Heparin Sodium 5,000 UNIT Q8 12/07 0600 AC 12/11 (Porcine) SC 1318 Lorazepam 0.5 MG DAILY NEEDED PRN 12/05 2014 AC PO 12/12 2013 Lurasidone HCl 40 MG DAILY 12/06 1000 AC 12/11 PO 1039 Metoprolol Succinate 25 MG DAILY 12/07 1645 AC 12/11 PO 1039 Patient Medication 1 ED .STK-MED ONE 12/11 1406 DC Teaching ED 12/11 1407 Tamsulosin HCl 0.8 MG QPM 12/07 2200 AC 12/10 PO 2113 Venlafaxine HCl 75 MG TID 12/05 2200 AC 12/11 PO 1039 Laboratory Tests 12/11/16 0626: Anion Gap 7, Estimated GFR 36 L, BUN/Creatinine Ratio 18.3 Vital Signs Date Time Temp Pulse Resp B/P B/P Pulse O2 O2 Flow FiO2 Mean Ox Delivery Rate 12/11 1427 97.7 70 20 120/70 96 Room Air 12/11 1039 66 124/80 12/11 1039 97.5 66 20 124/80 12/11 0643 97.5 66 20 114/70 94 Room Air 12/10 2215 97.5 68 18 94 12/10 2113 70 134/74 12/10 1438 98.2 64 18 126/72 94 Room Air Intake & Output 12/11 1600 12/11 0800 12/11 0000 Intake Total 100 1100 Output Total 500 Balance 100 600 Intake, IV 600 Intake, Oral 100 500 Output, Urine 500
[2016-12-11 21:55] VITALS: BP 132/74
[2016-12-12 06:03] VITALS: BP 118/72
--- NOTE | 2016-12-12 07:15 | PN- Housestaff ---
See Addendum Subjective Follow-up For: Confusion Depression Bipolar Subjective: Patient was seen and examined this morning, he is awake and oriented 3, offered no new complaints. Patient was overnight confused. Vital signs are stable blood pressure 118/72 with pulse 58. Review of Systems Constitutional: Reports: see HPI. Objective Last 24 Hrs of Vital Signs/I&O Vital Signs Date Time Temp Pulse Resp B/P B/P Pulse O2 O2 Flow FiO2 Mean Ox Delivery Rate 12/12 1041 Room Air 12/12 0932 58 118/72 12/12 0932 58 118/72 12/12 0603 97.6 58 20 118/72 94 Room Air 12/11 2159 98.6 57 16 132/74 12/11 2155 98.6 57 16 132/74 94 Room Air 12/11 1427 97.7 70 20 120/70 96 Room Air Intake & Output 12/12 1600 12/12 0800 12/12 0000 Intake Total 480 Output Total Balance 480 Intake, Oral 480 Physical Exam General Appearance: Alert, Oriented X3, Cooperative, No Acute Distress Skin: No Rashes, No Breakdown, No Significant Lesion HEENT: Atraumatic, PERRLA, EOMI, Mucous Membr. moist/pink, erythema of eyelid bilaterally Neck: Supple, No JVD Cardiovascular: Regular Rate, Normal S1, Normal S2, No Murmurs Lungs: Clear to Auscultation, Normal Air Movement Abdomen: Normal Bowel Sounds, Soft, No Tenderness, No Hepatospenomegaly, No Masses Neurological: Normal Gait, Normal Speech, Strength at 5/5 X4 Ext, Normal Tone, Sensation Intact, Cranial Nerves 3-12 NL, Reflexes 2+ Extremities: No Clubbing, No Cyanosis, No Edema, Normal Pulses, No Tenderness/ Swelling Assessment/Plan Assessment: is 81-year-old male with past medical history significant for depression and bipolar disorder, hypertension, hyperlipidemia, anemia, bilateral carotid plaque, chronic kidney disease who presented to ED with chief complaint of confusion for 2-3 days per family report: On admission vital signs temperature 96.5, pulse 71, blood pressure 168/71, saturating 97% on room air Assessment: #Confusion #Bipolar disorder #Depression #Hypertension #Hyperlipidemia #Acute on chronic kidney disease Plan Depression, bipolar disease, confusion -Patient has sitter -Patient presented with history of confusion on top of extensive psych history that includes depression and bipolar -Lab works are negative for infection or metabolic abnormality that could contribute to new onset of confusion -TSH 0.72, FreeT4 1.22 -Vitamin B12 434, folate 15.9 within normal -Urine toxicology negative for any drugs -CT head negative for intracranial pathology -Chest x-ray negative for any acute changes -grain manager was contacted, decision was made to [facility] [place] -I contacted patient's daughter Charmaine Munoz on #[phone] and confirmed his medication list -Psych consultation, will continue to follow recommendation Hypertension and hyperlipidemia -Amlodipine 2.5 mg daily, noticed that home dose is amlodipine 10 mg daily -Continue aspirin 81 daily -Continue Lipitor 80 mg daily -Continue metoprolol XL 25 mg daily Acute on chronic kidney disease -Improved -Encourage fluid oral intake Conjunctivitis -Erythromycin eyedrops 4 times daily Full code DVT prophylaxis with SC heparin Diet heart healthy Problem List: 1. Confusion 2. Bipolar 1 disorder, depressed 3. Depression, major, recurrent Pain Ratin Pain Location: None Pain Goal: Pain 4 or less Pain Plan: Mild pain pathway Tomorrow's Labs & Rationales: None
--- NOTE | 2016-12-12 07:41 | Discharge Summary ---
Visit Information Visit Dates Admission Date: 12/05/16 Discharge Date: 12/12/2016 Hospital Course Course Attending Physician: Case GREEN Primary Care Physician: Gregg LOPEZ MD Consulting Request: Consulting Specialty: Psychiatry (psy) Hospital Course: is an 81 yo man with PMHx Significant for depression, and bipolar disorder brought in by ambulance from home with CC of increasing confusion and agitation. List of active problems 1) increased confusion Patient was admitted to medical floor until [facility] placement has been found, with a preference for [facility], with the planned dispo from that placement being [facility]. Organic causes of increased confusion were assessed and ruled out. Blood chemistry and head CT scan were negative. With psychiatric non pharmological intervention patient's agitation improved and he remained safe without one-on-one sitter for more than 24 hours. According to previous agreement with family patient was medically stablized to be transfered to [facility]. Complications: none Allergies: Coded Allergies: No Known Allergies (11/30/15) Disposition Summary Disposition Principal Diagnosis: Increased confuison Additional Diagnosis: Bipolar and depression in elderly Discharge Disposition: SNF Discharge Instructions General Discharge Information Code Status: Full Code Patient's Diet: Heart healthy Patient's Activity: as tolerated risk of fall Follow-Up Instructions/Appts: follow up with [facility] for medication adjustment Medications at Discharge Discharge Medications: Stop taking the following medications: Hydralazine HCl (Hydralazine HCl) 25 MG TABLET ORAL TWICE DAILY Qty = 60 Amlodipine Besylate (Norvasc) 10 MG TABLET ORAL DAILY Continue taking these medications: Venlafaxine HCl (Venlafaxine HCl ER) 75 MG CAP.ER.24H 2 Capsule ORAL DAILY Qty = 30 Comments: Last Taken: 12/12/16 Time: 10AM Pravastatin Sodium (Pravastatin Sodium) 40 MG TABLET 1 Tablet ORAL DAILY Qty = 30 Comments: NOT GIVEN IN HOSPITAL Aspirin (Ecotrin*) 81 MG TABLET.DR 1 Tablet ORAL DAILY Comments: Last Taken: 12/12/16 Time: 10AM Tamsulosin HCl (Tamsulosin HCl) 0.4 MG CAP.ER.24H 2 Capsule ORAL Every night Qty = 90 Comments: NOT GIVEN IN HOSPITAL Lurasidone HCl (Latuda) 40 MG TABLET 1 Tablet ORAL Every night Qty = 1 Comments: Last Taken: 12/12/16 Time: 10AM Cholecalciferol (Vitamin D3) (Vitamin D) 1,000 UNIT TABLET 1 Tablet ORAL DAILY Comments: NOT GIVEN IN HOSPITAL Multivitamin (Multi-Day Vitamins) 1 EACH TABLET 1 Tablet ORAL DAILY Comments: NOT GIVEN IN HOSPITAL Metoprolol Succ XL (Toprol XL) 25 MG TAB 1 Tablet ORAL DAILY Comments: Last Taken: 12/12/16 Time: 10AM Lorazepam (Ativan) 0.5 MG TABLET 1 Tablet ORAL TWICE DAILY Comments: NOT GIVEN IN HOSPITAL Start taking the following new medications: Amlodipine (Norvasc) 2.5 MG TABLET 2.5 Milligram ORAL DAILY Qty = 60 No Refills Comments: Last Taken: 12/12/16 Time: 10AM Erythromycin Base (Erythromycin) 5 MG/GRAM (0.5 %) OINT...G. 1 Application In the eye 4 TIMES A DAY Qty = 1 No Refills Comments: Last Taken: 12/12/16 Time: 10AM Polyethylene Glycol 3350 (Miralax) 17 GRAM POWD.PACK 1 Packet ORAL DAILY as needed for CONSTIPATION Qty = 30 No Refills Instructions: dissolve in water Comments: Last Taken: 12/12/16 Time: 10AM Copies To: JESSICA GREEN,Gregg Diaz MD Review Statement Documenting Attending: CASE GREEN,DELFIN Other Findings: PATIENT: KERRI ANGULO PRESENT AGE: 81 PATIENT ACCOUNT NO: [id number] : 36 LOCATION: [facility] ORDERING PHYSICIAN: STACIE MIKE MD SERVICE DATE: 12/03/16 EXAM TYPE: CAT - CT HEAD WO IV CONTRAST EXAMINATION: CT HEAD WITHOUT CONTRAST CLINICAL INFORMATION: CVA, dizziness, confusion COMPARISON: 11/27/2016 CT scan of head TECHNIQUE: Contiguous axial imaging was performed from the skull base to vertex without intravenous administration of contrast. DLP: 620.91 mGy-cm FINDINGS: There is no evidence of acute intracranial hemorrhage or territorial infarction. No abnormal mass effect or midline shift is seen. Alan to white matter differentiation is well preserved. No extra-axial fluid collections are identified. The ventricles are normal in size. 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 There are scattered bilateral deep white matter hypodensities, could represent chronic ischemic changes of small vessel disease. Atherosclerotic calcifications of the cavernous parts of internal carotid arteries and intracranial parts of vertebral arteries noted. The osseous structures and soft tissues are normal. The mastoid air cells and visualized portions of the paranasal sinuses are well aerated. Prior right cataract surgery. IMPRESSION: No acute intracranial pathology. Chronic ischemic changes of microangiopathy. Atherosclerosis. DICTATED BY: CRYSTAL MARIE MD DATE/TIME DICTATED:12/03/161405 REAL PROPERTY APPRAISER:ZARINA DATE/TIME TRANSCRIBED:12/03/161405 CONFIDENTIAL, DO NOT COPY WITHOUT APPROPRIATE AUTHORIZATION. <Electronically signed in Other Vendor System> SIGNED BY: CRYSTAL MARIE MD 12/03/16 3086
[2016-12-12] MEDS ORDERED: NORVASC2.5 M1 PO (10:59)
[2016-12-12] MEDS ORDERED: MIRALAX17 G1 PO (10:59)
[2016-12-12] MEDS ORDERED: ERYTHROMYCIN1 GM OPH (10:59)
[2016-12-12 14:30] VITALS: BP 116/80
== END 2016-12-12 15:17 | DRG 885 ==
LOC: ERH 13:09 → 2NA 12-05 16:19 → ERHI 12-05 16:19 → ENRESERV 12-05 23:49 → ERHI 12-06 16:55 → ENRESERV 12-06 20:50 → 2NA 12-06 23:25
PROVIDERS: Emergency Medicine; Student in an Organized Health Care Education/Training Program; ADMIT Internal Medicine
DX: F33.2 Major depressive disorder, recurrent severe without psychotic features (principal); G20 Parkinson's disease; I13.0 Hypertensive heart and chronic kidney disease with heart failure and stage 1 through stage 4 chronic kidney disease, or unspecified chronic kidney disease; I50.9 Heart failure, unspecified; E78.5 Hyperlipidemia, unspecified; H10.9 Unspecified conjunctivitis; N18.9 Chronic kidney disease, unspecified
CPT/HCPCS: 2NASP; ERO; 36415; 80307; 81003; 82436; 93005; 93010; G0463; G0480; J1630; J1644; J7042

== ENCOUNTER 2016-12-12 12:01 | Inpatient (IN) | payer OTHER, MEDICARE ==
[~2016-12-12] VITALS: Ht 180.3 cm; Wt 94.9 kg
[~2016-12-12 12:01] MED LIST changes: +AMLODIPINE BESY10 M1 PO; +ATIVAN0.5 M1 PO; +DIOVAN40 MG PO; +ERYTHROMYCIN1 GM OPH; +FUROSEMIDE20 M1 PO; +HYDRALAZINE HCL25 M1 PO; +LATUDA40 M1 PO; +MIRALAX17 G1 PO; +MULTI-DAY VITA1 EACH PO; +NORVASC10 M1 PO; +NORVASC2.5 M1 PO; +TOPROL XL25 M1 PO; +TRANSDERM-SCOP1 EACH TOP; +VITAMIN D1000 UNIT PO
--- NOTE | 2016-12-12 12:37 | IP CRISIS DIAG ASSESS PSYCH ---
Diagnostic Assessment Basic Assessment Insurance Authorization: Insurance #1: Insurance name: MEDICARE A Phone number: Policy number: [id number] Group number: Authorization number: Primary Care Physician: Patient's PCP: Gregg LOPEZ MD PCP's Patient's Quote: "I'm tired... always sad." Present Illness: 81-year-old male with a history of bipolar disorder brought in by ambulance to [facility] emergency department 12/03/16 for feelings of disorientation. The patient was hospitalized at [facility] about 4-5 weeks ago. He was discharged to home with his daughter and conservator, Charmaine, who does not feel that he can safely return home with her. He is currently followed by Dr. Teo Hair as an outpatient for bipolar disorder. He has had electroconvulsive therapy at [facility] about 6-7 months ago. The patient has a history of bipolar I disorder, treated on inpatient psychiatry last on 01/24/2010-03/04/2010 for suicidal ideation with plan to hang himself. That was his 4th admission to inpatient psychiatry since 1988. This SI resolved during that admission, and he was discharged to OPS. He has been seen here at the ED on 11/30/2015 for depression, and was treated and released. His moods were well controlled on lithium for several years however he had to discontinue the medication due to serious kidney damage and has had not apparently had stable mood since. Since admission to the hospital the patient has appeared increasingly depressed. Initially in the emergency department he appeared to be confused and staff reported he was responding to internal stimuli and delusional. It should be noted that at that time a Folstein Mini-Mental was completed where he scored 25 out of 30 which suggested no cognitive impairment. Causes of potential delirium were ruled out. Once patient was transferred to medicine from the emergency department the patient became less confused and more withdrawn. He expressed high levels of depression and passive suicidal ideation stating "I wish I could ," he had no plan or intent. Despite being able to ambulate independently he has spent several days lying in bed with his eyes closed or staring at the wall. He has declined opportunities to ambulate and often needs to be encouraged to eat. Of note this current presentation is what his daughter described as his baseline at home as of late. Patient's Address: [place] [id number] Other Phone Number: Who Do You Live With? Daughter Feel Safe Where You Live? Yes Feel Safe in Your Relationship Yes (has omar ) Marital Status: single Do You Have Children? Yes Ages? Adult Primary Language? Indonesian Language(s) Spoken At Home: Indonesian Family/Informants Interviewed: Charmaine Munoz - daughter and conservator has been involved in his care since admission [phone] or [phone] Allergies - Coded Allergies: No Known Allergies (11/30/15) Current Medications - Scheduled Medications Amlodipine (Norvasc) 2.5 MG TABLET 2.5 MG PO DAILY HIGH BLOOD PRESSURE #60 TAB Prescribed by CLARI MCLEAN MD on 12/12/16 Amlodipine Besylate (Norvasc) 10 MG TABLET 1 TAB PO DAILY high blood pressure (Reported) Entered as Reported by CLARI MCLEAN MD on 12/07/16 1357 Aspirin (Ecotrin*) 81 MG TABLET.DR 1 TAB PO DAILY HEART/BLOOD (Reported) Entered as Reported by RENETTA MADERA on 11/30/15 1938 Cholecalciferol (Vitamin D3) (Vitamin D) 1,000 UNIT TABLET 1 TAB PO DAILY BONE STRENGTH (Reported) Entered as Reported by CLARI MCLEAN MD on 12/07/16 1331 Erythromycin Base (Erythromycin) 5 MG/GRAM (0.5 %) OINT...G. 1 YARELY OPH 4 TIMES /DAY EYE PROBLEMS #1 OIN Prescribed by CLARI MCLEAN MD on 12/12/16 Hydralazine HCl 25 MG TABLET 1 TAB PO BID HTN #60 (Reported) Entered as Reported by LESLIE LANE on 12/03/16 1340 Lorazepam (Ativan) 0.5 MG TABLET 1 TAB PO BID ANXIETY (Reported) Entered as Reported by CLARI MCLEAN MD on 12/07/16 1335 Lurasidone HCl (Latuda) 40 MG TABLET 1 TAB PO QPM SLEEP #1 (Reported) Entered as Reported by KARINE ENGEL on 12/06/16 2304 Metoprolol Succ XL (Toprol XL) 25 MG TAB 1 TAB PO DAILY HIGH BLOOD PRESSURE ( Reported) Entered as Reported by CLARI MCLEAN MD on 12/07/16 1332 Multivitamin (Multi-Day Vitamins) 1 EACH TABLET 1 TAB PO DAILY HEALTH SUPPLEMENT (Reported) Entered as Reported by CLARI MCLEAN MD on 12/07/16 1332 Pravastatin Sodium 40 MG TABLET 1 TAB PO DAILY CHOLESTEROL #30 (Reported) Entered as Reported by RENETTA MADERA on 11/30/15 193 Tamsulosin HCl 0.4 MG CAP.ER.24H 2 CAP PO QPM BPH #90 (Reported) Entered as Reported by JONES CHANG MD on 02/21/16 0010 Venlafaxine HCl (Venlafaxine HCl ER) 75 MG CAP.ER.24H 2 CAP PO DAILY MENTAL HEALTH #30 (Reported) Entered as Reported by RENETTA MADERA on 11/30/15 1936 Scheduled PRN Medications Polyethylene Glycol 3350 (Miralax) 17 GRAM POWD.PACK 1 PAC PO DAILY PRN CONSTIPATION #30 PAC Prescribed by CLARI MCLEAN MD on 12/12/16 Consequences of Psych Med Use: Poor effect at present Lab Results: Laboratory Tests 12/11/16 0626: Anion Gap 7, Estimated GFR 36 L, BUN/Creatinine Ratio 18.3 Toxicology Screen Completed? Yes Results: negative Past History Past Medical History Medical History: CHF, Hypertension, Kidney disease, Psychiatric history Past Surgical History Surgical History STENTS Abuse/Trauma History Trauma History/Current Trauma: Denies Legal History Current Legal Status: none (Conserved ) Psychosocial History Strengths/Capabilities: Pt. has psychiatric treatment in the community Physical Limitations (Interventions): Reluctant to walk at times, but is ambulatory. Psychiatric Treatment History Psych Treatment Psychiatric Treatment Yes Inpatient Treatment Yes Outpatient Treatment Yes (Dr. Trpi Abebe) [place] [facility] [place] [facility] Reason for Treatment Bipolar; SI Dates of Treatment See above Response to Treatment Poor at present Diagnosis by History: Bipolar I disorder with history of psychotic features. 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 Risk Factors: age (under 24/over 65), SA/MH hospitalized, male Substance Use/Abuse History Drug Use/Abuse minimum 12mo Hx Substances Used/Abused No Substance Abuse Treatment Substance Abuse Treatment Past Substance Abuse [place] No Education History Highest Level of Education: not sure Current Mental Status Mental Status Orientation: Person, Place, Situation Affect: Flat Speech: Soft Neuro-vegetative: Appetite Decreased, Energy Decreased, Hypersomnia Appearance Appearance- Dress/Hygiene: Somewhat unkempt Behaviors Thought Process: WNL Thought Content: WNL Memory: WNL Insight: Fair SI/HI Risk Assessment - Minimum 6mo History- Past Suicidal Ideation/Attempts Yes Current Suicidal Ideation/Att No Past Homicidal Ideation/Att: No Current Homicidal Ideation/Attempts No Degree of Intent: Passive SI Danger To: Self Gravely Disabled: Inability Risk Factors: age (under 24/over 65), SA/MH hospitalized, male Lethality Ratin Needs/Init TX Plan/Goals: Monitor safety and mental status. Participate in treatment modalities including medication management, group therapy, individual therapy and therapeutic milieu. AUDIT-C Questionnaire: AUDIT-C Questionnaire: Response Value ETOH use in the past year Never 0 # drinks typical/day Doesn't Drink 0 6 or > drinks per occasion Never 0 Total 0 DSM5/PS Stressors/Medical Prob Diagnosis' (DSM 5, Stressors, Medical): F31.9 Bipolar I disorder, unspecified CKD, HLD, HTN, CHF
[2016-12-12 16:08] VITALS: BP 143/64
--- NOTE | 2016-12-12 17:45 | NUR ---
PT ADMITTED TO [facility] FOR EXACERBATION IN DEPRESSION AND ANXIETY. PT DIAGNOSED WITH BIPOLAR D/O. DURING INTERVIEW, PT DENIED SI/THOUGHTS OF SELF HARM PAST AND PRESENT. HOWEVER, PER TRAVEL SERVICES PROFESSIONAL REPORT, PT HAS HAD SI IN PAST IN 2009 WITH PLAN TO HANG HIMSELF. PT A&0 X 3. MOOD DEPRESSED AND ANXIOUS. AFFECT CONSTRICTED. REPORTED DEPRESSION AND ANXIETY BOTH "6" ON SCALE OF 1-10 WITH 10 BEING THE WORST HE HAS EVER FELT. PT DENIED AH/VH. ADMITTED TO FEELINGS OF HELPLESSNESS AND HOPELESSNESS WELL DECREASED ENERGY AND APPETITE. SLEEP IMPAIRED WELL BUT DENIED HYPERSOMNIA. REPORTED DFA AND MNA. BEHAVIOR PLEASANT AND COOPERATIVE. NO SOMATIC C/O. VSS. ESSENTIAL TREMOR NOTED. DENIED HAVING HX OF PARKINSONS AND CHF WHICH WERE BOTH DOCUMENTED IN HEALTH HX.
[2016-12-12 19:45] VITALS: BP 149/76
--- NOTE | 2016-12-13 05:43 | NUR ---
SLEPT WELL OUT TO BATHROOM COUPLE TIMES CONFUSED TO PLACE.
[2016-12-13 07:50] VITALS: BP 144/86
--- NOTE | 2016-12-13 12:01 | SOCIAL WORKER SOCIAL HX PSYCH ---
Social History Basic Assessment Insurance Authorization: Insurance #1: Insurance name: MEDICARE A BEHAVIORAL HEALTH Phone number: Policy number: [id number] Group number: Authorization number: Curr Source of Income/Entitlements: retired/pension Primary Care Physician: Patient's PCP: Gregg LOPEZ MD PCP's Primary Language? Cape Verdean Language(s) Spoken At Home: [place]an Living Situation Other Living Arrangement: is unsure where he will return to/ care home Residential Care/Treatment Fac care home Feel Safe Where You Are Living Yes Feel Safe in Relationships? Yes Comments: 2 daughters and a son, and a fiance Allergies - Coded Allergies: No Known Allergies (11/30/15) Current Medications - Scheduled Medications Amlodipine (Norvasc) 2.5 MG TABLET 2.5 MG PO DAILY HIGH BLOOD PRESSURE #60 TAB Prescribed by CLARI MCLEAN MD on 12/12/16 Last Taken: 12/12/16 1000 Aspirin (Ecotrin*) 81 MG TABLET.DR 1 TAB PO DAILY HEART/BLOOD (Reported) Entered as Reported by RENETTA MADERA on 11/30/151937 Last Taken: 12/12/16 1000 Cholecalciferol (Vitamin D3) (Vitamin D) 1,000 UNIT TABLET 1 TAB PO DAILY BONE STRENGTH (Reported) Entered as Reported by CLARI MCLEAN MD on 12/07/16 1331 Last Taken: At an unknown date and time Erythromycin Base (Erythromycin) 5 MG/GRAM (0.5 %) OINT...G. 1 YARELY OPH 4 TIMES /DAY EYE PROBLEMS #1 OIN Prescribed by CLARI MCLEAN MD on 12/12/16 Last Taken: 12/12/16 1000 Lorazepam (Ativan) 0.5 MG TABLET 1 TAB PO BID ANXIETY (Reported) Entered as Reported by CLARI MCLEAN MD on 12/07/16 1335 Last Taken: At an unknown date and time Lurasidone HCl (Latuda) 40 MG TABLET 1 TAB PO QPM SLEEP #1 (Reported) Entered as Reported by KARINE ENGEL on 12/06/16 2304 Last Taken: 12/12/16 1000 Metoprolol Succ XL (Toprol XL) 25 MG TAB 1 TAB PO DAILY HIGH BLOOD PRESSURE ( Reported) Entered as Reported by CLARI MCLEAN MD on 12/07/161331 Last Taken: 12/12/16 1000 Multivitamin (Multi-Day Vitamins) 1 EACH TABLET 1 TAB PO DAILY HEALTH SUPPLEMENT (Reported) Entered as Reported by CLARI MCLEAN MD on 12/07/16 133 Last Taken: At an unknown date and time Pravastatin Sodium 40 MG TABLET 1 TAB PO DAILY CHOLESTEROL #30 (Reported) Entered as Reported by RENETTA MADERA on 11/30/151936 Last Taken: At an unknown date and time Tamsulosin HCl 0.4 MG CAP.ER.24H 2 CAP PO QPM BPH #90 (Reported) Entered as Reported by JONES CHANG MD on 02/21/16 0010 Last Taken: At an unknown date and time Venlafaxine HCl (Venlafaxine HCl ER) 75 MG CAP.ER.24H 2 CAP PO DAILY MENTAL HEALTH #30 (Reported) Entered as Reported by RENETTA MADERA on 11/30/151935 Last Taken: 12/12/16 1000 Scheduled PRN Medications Polyethylene Glycol 3350 (Miralax) 17 GRAM POWD.PACK 1 PAC PO DAILY PRN CONSTIPATION #30 PAC Prescribed by CLARI MCLEAN MD on 12/12/16 Last Taken: 12/12/16 1000 Discontinued Medications Amlodipine Besylate (Norvasc) 10 MG TABLET 1 TAB PO DAILY high blood pressure (Reported) Discontinued reason: Changed Dose Hydralazine HCl 25 MG TABLET 1 TAB PO BID HTN #60 (Reported) Discontinued reason: Changed to different med Past History Past Medical History Neurological: ESSENTIAL TREMOR EENT: SEASONAL ALLERGIES Cardiovascular: hypertension, HIGH CHOLESTEROL Respiratory: NONE Gastrointestinal: NONE Hepatic: NONE Renal: chronic kidney disease Musculoskeletal: NONE Psychiatric: anxiety, bipolar disease, depression Endocrine: NONE Blood Disorders: NONE Cancer(s): NONE 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 No Mother's Age (Current/): 85 Relationship w/Mother: routine, we had no problems Father's Age (Current/): 69 Relationship w/Father: no problems Any Sibling(s)? Yes Sibling's Gender(s)/Age(s): male Sibling 1:, male Sibling 2: Relationship w/Sibling(s): both are , but they were close the older brother was ridiculed Relationship w/Friends: social, always had friends Family Psych/Sub Abuse/Add Hx: treatment Other Comments: Mother had depression/ and "shock treatment" Abuse/Trauma History Trauma History/Current Trauma: Denies Legal History Current Legal Status: none Psychosocial History Primary Support System: significant other, daughter, son Strengths/Capabilities: Pt. has psychiatric treatment in the community Weaknesses: aging, and beginning to require longer term treatment Physical Limitations (Interventions): Reluctant to walk at times, but is ambulatory. Last Physical: 2017 History of Seizures? No History of Blackouts? No ADL Limitations: routine [place]/Social/Peer Relations fiance brandi is a support Meaningful Activities: walking, and going to movies Childhood Restorationist: no anabaptist stated Current Congregational Affiliation: no anabaptist stated Is Spirituality Important to You? yes Cultural/Ethnic Issues: denies Are There Developmental Issues? No Milestones Achieved: fine motor, gross motor Psychiatric Treatment History Psych Treatment Inpatient Treatment Yes Outpatient Treatment Yes (Dr. Trip Abebe) Location of Treatment [facility] Reason for Treatment Bipolar; SI Dates of Treatment See above Response to Treatment Poor at present Diagnosis: Bipolar I disorder with history of psychotic features. 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 Psychodynamic Issues: requiring more care as he ages. 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 of Jobs in Last 5 Years: 0 Attendance: Normal Performance: Good History Have You Been in The ? Yes Type of Discharge: Honorable Date of Discharge: unknown Current Mental Status Mental Status Orientation: Person, Place, Situation Affect: Flat Speech: Soft Neuro-vegetative: Appetite Decreased, Energy Decreased, Hypersomnia Appearance Appearance- Dress/Hygiene: Somewhat unkempt Behaviors Thought Process: WNL Thought Content: WNL Memory: WNL Insight: Fair SI/HI Risk Assessment Past Suicidal Ideation/Attempts Yes Current Suicidal Ideation/Att No Past Homicidal Ideation/Att: No Current Homicidal Ideation/Attempts No Degree of Intent: Passive SI Danger To: Self Gravely Disabled: Inability Lethality Ratin - Conclusion and Recommendations for treatment - and discharge planning
--- NOTE | 2016-12-13 12:02 | SOCIAL WORKER PROG NOTE PSYCH ---
Social Work Progress Note Progress Note Charmaine Esquivel his daughter, will come in for a family session tomorrow at 2pm. She reports when he leaves here he will go to [facility] "zaheer is the contact there" they have a bed ready for him, once he is "cleared psychiatrically". She reports he has had chronic depression. When I met with the pt today he reports he is going to a convalescent home, he denied intent to hurt himself, and was oriented and alert.
[2016-12-13 12:21] VITALS: BP 134/80
--- NOTE | 2016-12-13 12:26 | PN- Gen Med ---
Assessment/Plan Problem List: 1. Depression 2. Confusion 3. Bipolar 1 disorder, depressed Plan: is 81-year-old male with past medical history significant for depression and bipolar disorder, hypertension, hyperlipidemia, anemia, bilateral carotid plaque, chronic kidney disease who is transferred to [facility]. [facility]- pys[facility] placement awaited Assessment: #Confusion #Bipolar disorder #Depression #Hypertension #Hyperlipidemia #Acute on chronic kidney disease PLAN Cont current care on [facility]. awaiting placement , vital stable. DVT/Prophylaxis: early ambulation low risk Subjective Review of Systems Constitutional: Denies: no symptoms, chills, diaphoresis, fever. EENTM: Denies: blurred vision, double vision, eye pain, eye drainage. Cardiovascular: Denies: chest pain, edema, orthopena. Respiratory: Denies: cough, hemoptysis, orthopnea. Gastrointestinal: Denies: abdominal pain, bloating, constipation. Genitourinary: Denies: discharge, dysuria, frequency, hematuria. Musculoskeletal: Denies: back pain, gout, joint pain. Skin: Denies: cysts, change in skin color. Neurological/Psychological: Denies: anxiety, ataxia, cognitive dysfunction. Hematologic/Endocrine: Denies: bruising, bleeding. Immunologic/Allergic: Denies: splenectomy, HIV/AIDS. Objective Last 24 Hrs of Vital Signs/I&O Vital Signs Date Time Temp Pulse Resp B/P B/P Pulse O2 O2 Flow FiO2 Mean Ox Delivery Rate 12/13 1221 73 134/80 12/13 1007 67 144/86 12/13 1007 67 144/86 12/13 0750 96.7 67 144/86 12/12 2338 96.2 84 149/76 12/12 1945 96.2 84 149/76 12/12 1608 95.7 65 143/64 Intake & Output 12/13 1600 12/13 0800 12/13 0000 Intake Total Output Total Balance Patient 94.858 kg Weight Physical Exam General Appearance: Alert, Oriented X3, No Acute Distress Skin: No Rashes Skin Temp/Moisture Exam: Warm/Dry Sepsis Skin Exam (color): Normal for Ethnicity HEENT: Atraumatic, PERRLA Neck: Supple, No JVD Cardiovascular: Regular Rate, Normal S1, Normal S2 Lungs: Clear to Auscultation Abdomen: Normal Bowel Sounds, Soft, No Tenderness Neurological: Normal Gait, Normal Speech, Strength at 5/5 X4 Ext Extremities: No Clubbing, No Cyanosis Vascular: Normal Pulses
--- NOTE | 2016-12-13 13:27 | NUR ---
PT IS COMPLIANT AND COOPERATIVE WITH UNIT RULES. PT IS ISOALTIVE IN ROOM FOR MOST OF THE SHIFT. PT NEEDS SOME PROMPTING TO GET OUT OF BED FOR MEALS AND GROUPS. PT MOOD IS STABLE WITH A FLAT AFFECT. PT DENIES SI THOUGHTS.
[2016-12-13 16:01] VITALS: BP 146/93
--- NOTE | 2016-12-13 16:46 | CPS MD/APRN INITIAL ASSE PSYCH ---
Psychiatric Admission Gas Fitter Helper's Note Reviewed: Yes (Consult TEACHER EDUCATION INSTRUCTOR's note.) Patient Seen and Examined: Yes Identifying Information: 81 yo WWM with bipolar d/o, admitted on 12/12/16 on a voluntary basis, referred by medical floor. Chief Complaint: Depression. Low motivation. Said "I wish I could ." Reaction to Hospitalization: Doesn't mind being here if it proves helpful to him. History of Present Illness Onset of Illness: Chronic bipolar disorder. Discharged from [facility] a few weeks ago to daughter's home. Reportedly had psychomotor retardation/withdrawal there. Circumstances Leading to Admission: Brought to [facility] by ambulance on 11/02/16 for feelings of disorientation. Problem(s) Justifying Need for Admission: Depression. Became less confused and more withdrawn while on the medical floor. By report, he was not ambulating much and needed encouragement to eat. Other HPI: Patient feels that his medication could be "fouled up," as he has felt dizzy and sleepy, but less depressed. Reports he has felt periodically depressed for the past 2-3 months. Reports he lacks "assurance" and has been apprehensive, tentative about meeting people. Reports being overly anxious and getting a headache. Reports discharge from [facility] 5-6 weeks ago. Reports past tx with 5-6 ECTs that didn't help. Reports he didn't fit in the "chain of command" at daughter's home. Wants to go to [place] in [place]. Sleep: pretty good but reports he was up all night anxious a few nights ago, waiting to come to [facility]. Appetite: fairly good. Reports he lost ~8#/5 weeks. Energy: "it's okay." Case discussed in team meeting. Staff reports that the patient was confused during the night. Talked about getting something at the furniture store. Past Psychiatric History Past Diagnosis(es)- if any: Bipolar disorder diagnosed in his 50s. Past Precipitating Factors- if any: Unknown. - Include inpatient and outpatient treatment Treatment History: Sees Dr. Hair. Saw Dr. Thacker. Has been hospitalized ~4 times. History of Suicide Attempts or Gestures Denies. Substance Abuse History: No tobacco. Alcohol: a couple of glasses/month. No drugs. Allergies: Coded Allergies: No Known Allergies (11/30/15) Home Med List: Latuda 40 mg daily. EC ASA 81 mg daily. Toprol 25 mg daily. Amlodipine 2.5 mg daily. Miralax 17 gm daily. Flomax 0.5 mg qPM Pravastatin 40 mg qPM. Effexor 150 mg daily. Erythromycin ointment to eyes. Colace 100 mg daily. Artificial tears. - Include any medical condition(s) that may - impact the patient's recovery/remission Past History Medical History Neurological: ESSENTIAL TREMOR EENT: SEASONAL ALLERGIES Cardiovascular: hypertension, HIGH CHOLESTEROL, Hx 2 stents Respiratory: NONE Gastrointestinal: NONE Hepatic: NONE Renal: chronic kidney disease Musculoskeletal: NONE Psychiatric: anxiety, bipolar disease, depression Endocrine: NONE Blood Disorders: NONE Cancer(s): NONE GRAPE GROWER/Reproductive: NONE History of MRSA: No History of VRE: No History of CDIFF: No Isolation History: Standard Surgical History Surgical History: STENTS, Tonsillectomy Psychiatric Family/Social Hx Family History Psychiatric Illness: Mother had depression. Substance Use: Denied. Suicides: Denied. Social History Living Situation: Has been living with daughter and her family. She reportedly is not able to care for him at her home. Significant Relationships (family/friends): x 2.5 years. Has 2 daughters and 1 son. 1 daughter is conservator. Education: 2 years of college. Vocation/Occupation: Retired. Worked for [employer] for 12 years and [employer] for 20 years. Was let go from [employer] because $12 was missing. Legal: Conserved. No arrests. Other Social History: Was in the [employer] [id number] but not during conflict. Healthly Behaviors Screening Tobacco Screening Tobacco Use from ED Docu: Never used - If tobacco counseling indicated - the following topics are required. - #1 Recognizing dangerous situations. - #2 Coping Skills. - #3 Basic information about quitting. Status of Tobacco Cessation Counseling: Not Applicable Cessation Med Status Not Applicable Alcohol Screening - ETOH screen POS if BAL >=80 or Audit-C>= M4/F3 Audit-C Score from Diag Assess: 0 Alcohol Use Screening Results: Neg per Audit C &/or BAL - If ETOH counseling indicated - the following topics are required. - #1 Express concern about the patient's - drinking at unhealthy levels, include informing - of national norms for moderate drinking: - men <= 14 drinks/week, max 4 drinks/occasion - women <= 7 drinks/week, max 3 drinks/occasion - #2 Providing feedback, including linking alcohol to - negative physical effects (liver injury, hypertension) - negative emotional effects (relationship problems and - depression) - negative occupational consequences (reduced work - performance) - #3 Advising the patient to abstain from alcohol or - to drink below national norms for moderate drinking - (as listed above). Status of ETOH Use Counseling: N/A B/C NO ETOH Use Metabolic Screening - Screen if on a Neuroleptic Medication - Metabolic screening should include: - Blood Pressure, BMI, Glucose or Hgb A1c, & a - Lipid profile from within the past 365 days. Metabolic Screening () Not Applicable, patient not on a neuroleptic. OR () Patient on a neuroleptic(s) . Enter below results for Glucose or Hemoglobin A1C, and lipid panel if obtained during the last 365 days. BMI: 29.100 Blood Pressure: 146/93 Laboratory Results (If applicable): [x] Lab Cholesterol 115 MG/DL 02/21/16 0400 Cholesterol/HDL Ratio 5 % H 02/21/16 0400 Glucose 127 mg/dL H 12/03/16 1333 HDL Cholesterol 23 mg/dL L 02/21/16 0400 LDL Cholesterol, Calc 68 mg/dL 02/21/16 0400 Triglycerides 120 mg/dL 02/21/16 0400 Exam and Plan Mental Status Examination Ambulation Status: Ambulatory, currently sitting in a chair in [facility]. Appearance: Dressed in blue paper scrubs. Appears stated age. Seems to have possible TD at mouth. Attitude towards examiner: Polite and cooperative. Psychomotor activity: No psychomotor agitation/retardation. Behavior: WNL. Quality of speech: Speech normal in volume, rate and tone. Affect: Calm and blunted to flat. Brightened briefly with a social smile. Mood: Fair at 4/10 with 10 being best. Sad 5/10 and anxiety 5-6/10 with 10 being worst. Denies feeling hopeless. Feels helpless and worthless. Feels guilty for not having done better in life making a living, raising his family. Feels he let them down. Spoke about being let go from [employer] because $12 was missing. Suicidal Ideation: Denies active and passive SI. Homicidal Ideation: Denies HI. Hallucinations: Denies current AH. Has AH very seldomly. Occasionally hears the name of a friend in the background. Last had this a couple of months ago. Denies current VH. Has seen white paper turn to blue or a male become female, and he thinks this could be due to eye changes from medications or from headaches. Denies headache now. Paranoid/Delusional Material: Denies PI and magical rios. Difficulties with thought organization: There is no apparent thought disorder or delusions. Insight: Fair. Judgment: Fair. Orientation: Ox3 except gave the date as 12/16/16. Cognition: Grossly WNL. Memory Function: Grossly WNL. Estimate of intellectual functioning: Average. Assets/Strengths Patient Identified Assets/Strengths: Perseverence. Fighting off impure thoughts. Won't give in to people. Impression/Plan Impression and Plan: 81 yo WWM with recurrence of bipolar depression. Apparently improved from presentation in ER. - Include all active medical diagnosis that require tx DSM 5 Diagnosis(es): Bipolar d/o, depressed. HTN. 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 Hx CAD. Seasonal allergies. - Initial Tx Plan for Active Psych & Medical Conditions Treatment Plan: The patient will be monitored on the unit for safety and mood disorder. Continue current medications as written. Additional information is needed from collaterals, including Dr. Hair and daughter, who is COPE. - Factors that would help patient function - in a less restrictive setting. Factors: Improved mood. Absence of SI. Safe dischare plan.
--- NOTE | 2016-12-13 18:40 | NUR ---
PT IS CALM, COOPERATIVE WITH STAFF AND PEERS, AND COMPLIANT WITH UNIT RULES. BOTH IN AND OUT OF MILIEU, LIMITED INTERACTION WITH OTHERS. SLIGHTLY WITHDRAWN AND ISOLATIVE. MOOD IS STABLE, AFFECT APPEARS FLAT/CONSTRICTED, COMMUNICATION IS ORGANIZED AND APPEARS NORMAL IN ALL RESPECTS, AND APPETITE IS NORMAL. PT DENIES SI AT THIS TIME.
[2016-12-13 19:48] VITALS: BP 123/70
--- NOTE | 2016-12-14 07:17 | NUR ---
PT UP "LOOKING FOR A GLASS OF WINE" IN THE NIGHT. PT DIRECTED BACK TO BED. PT SLEPT BEFORE AND AFTERWARDS.
[2016-12-14 09:57] VITALS: BP 178/84
--- NOTE | 2016-12-14 13:08 | NUR ---
PT REFUSES TO GET OUT OF BED, WILL NOT COME OUT FOR VITALS OR TO EAT. PT WAS OUT OF BED ONCE WITH CONSTANT REDIRECTION NECESSARY. PT WAS VERY IRRITABLE AND IMMEDIATELY WENT BACK TO BED AFTER RECEIBING MEDICATIONS. PT HAS BEEN IN BED EVER SINCE. VS ARE STABLE AND DENIES ANY SI/HI TO THIS MHW.
--- NOTE | 2016-12-14 14:59 | CP SOUTH PROGRESS NOTE PSYCH ---
Psych (Inpt) Progress Note Progress Note Include the following elements, when applicable: Involvement in the active treatment of the patient with behavioral observations of the patient and the patient's response to the treatment. Review of the ongoing treatment process in the context of the treatment plan. Indication of how multi-disciplinary staff members are carrying out the treatment plan. Plans for future interventions and recommendations for revision of the treatment plan. Liaison with other physicians/providers. Progress Note: Case and treatment plan discussed in team meeting. Staff reports that the patient walked out of his room at 2 AM, looking for a glass of wine. He has been sleeping-in this morning. Patient seen at 2:04 PM. He was sound asleep in his bed with some drooling. I tried to wake him up and he said "I'm tired." Stated he would get up in a little while. Patient's daughter came in for a family meeting. I informed her that we are aware of his withdrawal and psychomotor retardation and that we do not anticipate discharging him this calendar week. Apparently a bed has been secured at [facility]. IMPRESSION: Slow progress. Continue present treatment plan. I will change Effexor to Effexor XR 150 mg b.i.d. effective tomorrow.
--- NOTE | 2016-12-14 15:13 | SOCIAL WORKER PROG NOTE PSYCH ---
Social Work Progress Note Progress Note Met with pts daughter, unfortuantley pt would not join the meeting due to feeling "tired" we attempted to have him get involved, but he wouldnt budge. Pt daughter states that is his baseline, and often times he would stay in bed, she reflects on times she used to try to get him awake when he lived with her. She states he came home one day, and handed her his keys and said "I shouldnt drive anymore, and offered thats how he is with the penitentiary, most of the time people don't want to go, he agrees with plan to go to [place]. After the meeting we reviewed treatment goals and plan with pt and he states he will try to stay awake in afternoon, and avoid the bed, unless its a short nap, or for bed.
--- NOTE | 2016-12-14 17:37 | SOCIAL WORKER TX PLAN PSYCH ---
Treatment Plan - Please Document: - Evidence that there is ongoing collaboration between - the patient and the interdisciplinary team, - including the patient's active participation and - responsibility for engaging in the treatment regimen, - and that the treatment plan is individualized and - relevant to the patient's conditions. - Treatment plan should reflect documentation indicating - that all active therapeutic efforts are included. Strengths/Capabilities: Pt. has psychiatric treatment in the community Physical Limitations (Interventions): Reluctant to walk at times, but is ambulatory. Patient Identified Trmt Goals: To be less depressed and sad Discharge Plan: Outpatient treatment Problem/Goals #1 Problem #1: suicidal ideation Goal (Short Term): Monitor Farhan for safety onthe unit, 15 min checks. Farhan to attend all MH groups, verbalize 1-2 triggers to worsening depression. Goal (Senior Sql Server Developer): Maintain stablel mood, and report improved mood, no SI. Interventions: Provide daily individual therapy, meeting with MD/IT COORDINATOR daily, Daily groups MH/ SA. Modalities: CBT, DBT, Strengths based treatment modalities, activites, relaxation, psychoeducation. DSM5/PS Stressors/Medical Prob Diagnosis' (DSM 5, Stressors, Medical): F31.9 Bipolar I disorder, unspecified CKD, HLD, HTN, CHF Treatment Team - Responsibilities of members of the treatment team include: - Medication Management- MD or IT COORDINATOR - Medication Administration and Monitoring- Nurse - Group Therapy- Occupational Therapist - 1:1 Therapy,Disch Planning,family involvement-Ortho Rn
--- NOTE | 2016-12-14 17:59 | NUR ---
PT IS ISOLATIVE AND WITHDRAWN, SPENDING THE MAJORITY OF TIME IN PT ROOM, OUT OF MILIEU. WHEN ENTERING MILIEU PT HAS LIMITED INTERACTION WITH OTHERS. MOOD IS STABLE, AFFECT APPEARS FLAT/CONSTRICTED, COMMUNICATION IS ORGANIZED AND APPEARS NORMAL IN ALL RESPECTS, AND APPETITE IS NORMAL. PT DENIES SI AT THIS TIME.
[2016-12-14 20:03] VITALS: BP 154/85
--- NOTE | 2016-12-15 06:18 | NUR ---
THIS PATIENT WAS IN BED ALL EVENING AND NIGHT. THE PATIENT APPEARS DEPRESSED, AND SOMEWHAT OVERWHELMED, WITH THE MILIEU. THE PATIENT APPEARED TO SLEEP.
--- NOTE | 2016-12-15 13:54 | SOCIAL WORKER PROG NOTE PSYCH ---
Social Work Progress Note Progress Note Discussed Farhan in team meeting with Dr. Ochoa and staff. Met with Farhan he was in bed. He stated "I'm tired and I don't feel well." He was unable to describe what didn't feel well. He is very depressed. Staff has made many attempts to engage Farhan to come out of his room, and he refuses. He refused breakfast and lunch today. He has not attended any groups, is isolative in his room. He is compliant with his medications. He denied SI/HI, no overt psychosis.
--- NOTE | 2016-12-15 14:18 | CP SOUTH PROGRESS NOTE PSYCH ---
Psych (Inpt) Progress Note Progress Note Include the following elements, when applicable: Involvement in the active treatment of the patient with behavioral observations of the patient and the patient's response to the treatment. Review of the ongoing treatment process in the context of the treatment plan. Indication of how multi-disciplinary staff members are carrying out the treatment plan. Plans for future interventions and recommendations for revision of the treatment plan. Liaison with other physicians/providers. Progress Note: Case and treatment plan discussed in team meeting. Staff reports that the patient isolates in bed. We might consider addition of a stimulant but the patient has a cardiac history, including stent placement. Patient seen at 12:18 PM. He was asleep in bed. He is very somnolent. Feels good but appears depressed and withdrawn. Interacts minimally. IMPRESSION: Slow progress. Continue present treatment plan. Monitor response to increase in Effexor to Effexor XR 150 mg b.i.d. Consider possible addition of a stimulant.
--- NOTE | 2016-12-15 14:36 | NUR ---
PT HAS BEEN WITHDRAWN AND ISOLATIVE IN ROOM- SLEEPING MOST OF DAY. PT MOOD IS STABLE WITH A FLAT AFFECT. PT DENIES SI AT THIS TIME, NO COMPLAINTS OFFERED. PT PRESENT ON UNIT FOR MEALS AND VITALS- HAS MINIMAL INTERACTION WITH PEERS AND STAFF. PT HAS REFUSED GROUPS. VITALS ARE STABLE, APPETITE IS GOOD.
[2016-12-15 16:13] VITALS: BP 104/67
[2016-12-16 08:49] VITALS: BP 139/83
--- NOTE | 2016-12-16 11:49 | NUR ---
PT REFUSES TO GET OUT OF BED. ONLY OOB FOR VITAL SIGNS AND TO EAT BREAKFAST. PT REFUSES TO STAY OUT OF BED TO ATTEND ANY GROUPS OR ATTEND TO ANY ADL'S. STAFF RETRIEVED SHAMPOO AND SOAPS FOR PT TO SHOWER BUT HE REFUSES TO EVEN COMB HIS HAIR. IMMEDIATELY HE GOT BACK INTO BED. VS ARE STABLE AND DENIES ANY SI/HI TO THIS MHW.
--- NOTE | 2016-12-16 11:57 | CP SOUTH PROGRESS NOTE PSYCH ---
Psych (Inpt) Progress Note Progress Note Include the following elements, when applicable: Involvement in the active treatment of the patient with behavioral observations of the patient and the patient's response to the treatment. Review of the ongoing treatment process in the context of the treatment plan. Indication of how multi-disciplinary staff members are carrying out the treatment plan. Plans for future interventions and recommendations for revision of the treatment plan. Liaison with other physicians/providers. Progress Note: Patient seen chart reviewed d/w nursing staff He continues to remain in bed isolative refusing to meet publications writer in room thusinterview conducted in patients room. He reports "the meds arent workign" denies se of medication sleep at night, only other complaint is headache. denies si/hi or psychosis. Had episode of incontinence overnight Laying in bed disheveled cooperative limited eye contact. soft slow speech depressed mood flat affect. concrete. denies si/hi or psychosis. I/j both limited Depression. add tylenolol for headache no other changes
[2016-12-16 16:22] VITALS: BP 112/66
--- NOTE | 2016-12-16 18:00 | NUR ---
PT IS CALM, COOPERATIVE WITH STAFF AND PEERS, AND COMPLIANT WITH UNIT RULES. BOTH IN AND OUT OF MILIEU, THOUGH SLIGHTLY WITHDRAWN, STAYING IN PERIPHERY. MOOD IS STABLE, AFFECT APPEARS FLAT/CONSTRICTED, COMMUNICATION IS ORGANIZED AND APPEARS NORMAL IN ALL RESPECTS, AND APPETITE IS NORMAL. PT DENIES SI AT THIS TIME.
[2016-12-16 19:53] VITALS: BP 102/67
--- NOTE | 2016-12-17 06:00 | NUR ---
PATIENT WAS UP TO BATHROOM ONCE, OTHERWISE SLEPT ALL NIGHT.
[2016-12-17 08:41] VITALS: BP 120/69
--- NOTE | 2016-12-17 11:40 | NUR ---
PT WAS OOB EARLY THIS MORNING AND STAYED IN THE COMMUNITY UNTIL LUNCHTIME WHEN HE WENT BACK TO BED. HE DENIED THOUGHTS OF SELF HARM AND WAS COMPLIANT WITH HIS MED REGIME. PT REQUIRES REMINDERS TO TEND TO HIS ADLS
[2016-12-17 12:12] VITALS: BP 134/78
--- NOTE | 2016-12-17 12:45 | CP SOUTH PROGRESS NOTE PSYCH ---
Psych (Inpt) Progress Note Progress Note Include the following elements, when applicable: Involvement in the active treatment of the patient with behavioral observations of the patient and the patient's response to the treatment. Review of the ongoing treatment process in the context of the treatment plan. Indication of how multi-disciplinary staff members are carrying out the treatment plan. Plans for future interventions and recommendations for revision of the treatment plan. Liaison with other physicians/providers. Progress Note: Patient seen chart reviewed d/w nursing staff He was out in the milieu today reports feeling better today than yesterday less depressed, still feels as though the medications arent helping him, he is sleeping well med compliant no se reported. Elderly male, casually groomed, no pmr/pma. Cooperative fair eye contact. soft slow speech "better" mood blunted affect. concrete denies si/hi or psychosis. I/ j both limited MDD continue current tx plan
[2016-12-17 16:32] VITALS: BP 126/76
--- NOTE | 2016-12-17 18:05 | NUR ---
PT IS CALM, COOPERATIVE WITH STAFF AND PEERS, AND COMPLIANT WITH UNIT RULES. OFTEN IN MILIEU, THOUGH STAYING IN PERIPHERY WIHT LIMITED INTERACTION WITH OTHERS. MOOD IS STABLE, AFFECT APPEARS FLAT/CONSTRICTED, COMMUNICATION IS ORGANIZED AND APPEARS NORMAL IN ALL RESPECTS, AND APPETITE IS NORMAL. PT DENIES SI AT THIS TIME.
[2016-12-17 19:51] VITALS: BP 120/76
[2016-12-18 08:36] VITALS: BP 150/83
[2016-12-18 12:24] VITALS: BP 149/79
--- NOTE | 2016-12-18 13:21 | NUR ---
PT IS ISOLATIVE IN ROOM FOR MOST OF THE SHIFT. PT DOES COME OUT FOR VITALS WHEN ASKED. PT HAS MINIMAL INTERACTION WITH STAFF AND PEERS. PT REPORTED FEELING DIZZY DURING 1200 VITALS. VITALS WERE WNL AND PT WAS GIVEN WATER TO DRINK. PT IS NOT ATTENDING GROUPS. PT DENIES SI THOGUHTS.
[2016-12-18 15:52] VITALS: BP 142/81
--- NOTE | 2016-12-18 16:23 | SOCIAL WORKER PROG NOTE PSYCH ---
Social Work Progress Note Progress Note Introduced myself to Farhan, who was laying in bed. He has been in bed all day. When asked why he said "I'm old." Reports feeling down. Asked if he had any visitors over the weekend, he said no. He didn't make eye contact through our conversation. He layed there only opening his eyes on occasion. I tried to talk with him about family in attempt to get to know who better. He told me had 2 daughters and 2 sons. I asked about grandchildren? He didn't respond. He then began talking about giving checks to people for 100.00 and 200.00 dollars. He didn't seem to be following our conversation at that point. Encouraged him to come out of his room to spend some time in the community. He received a call on the patient phone during our conversation. He didn't seem to respond to prompts to get up and receive the call.
[2016-12-18 19:52] VITALS: BP 137/81
--- NOTE | 2016-12-18 20:48 | CP SOUTH PROGRESS NOTE PSYCH ---
Psych (Inpt) Progress Note Progress Note Include the following elements, when applicable: Involvement in the active treatment of the patient with behavioral observations of the patient and the patient's response to the treatment. Review of the ongoing treatment process in the context of the treatment plan. Indication of how multi-disciplinary staff members are carrying out the treatment plan. Plans for future interventions and recommendations for revision of the treatment plan. Liaison with other physicians/providers. Progress Note: PSYCHIATRIST NOTE, 12/18/2016: I discussed this patient's presentation and progress to date, current mental status, treatment and discharge planning with staff team today in the daily morning ITTM and I also met with him myself in individual session. Patient remembered me and having done well on [facility] in 2009 but said a stroke "0-xwc-y-half years after that really set things back..." He seemed somewhat less confused than he has been described at times but some of his increased disorientation and mental lapses may be aggrevated by "sundowning" during the evening/night hours. Nonetheless, he was intermittently obscure and/or bizarre in expressed thinking, once referring to some relatives as "hamburgers" and did not appear to be clear with the apparent family plan to have him enter [facility] following inpatient discharge. His daughter is apparently overwhelmed with his care needs and both she and her feel they "can no longer take care of him at home." Patient was pleasant throughout our discussion and thanked me sincerely for my time and attention at its conclusion. Patient denied any problems/side effects on the increased dose of Effexor-XR ( up from 150mg to 300mg/day thus far during this admission).
--- NOTE | 2016-12-18 22:02 | NUR ---
PT IS VISIBLE ON UNIT, WATCHING TV IN LOUNGE. PT HAS MINIMAL INTERACTION WITH PEERS OR STAFF BUT IS COOPERATIVE AND COMPLIANT. NO COMPLAINTS OR SI REPORTED. PT HAS A STABLE MOOD AND FLAT/CONSTRICTED AFFECT.
--- NOTE | 2016-12-19 05:43 | NUR ---
PT INCONTINENT OF URINE AND STOOL AT 0230. PT CHANGED. PT WAS OUT IN LOUNGE ON EVENINGS, ISOLATED BUT VISIBLE. PT APPEARED TO SLEEP WELL BEFORE AND AFTER INCONTINEENCE.
[2016-12-19 08:45] VITALS: BP 137/81
--- NOTE | 2016-12-19 13:45 | NUR ---
PT IS VISIBLE WITHIN THE COMMUNITY AND INTERACTING MINIMALLY WITH PEERS/STAFF. PT PREFERS TO BE IN HIS ROOM SLEEPING BUT WAS ENCOURAGED TO BE OUT IN THE COMMUNITY WHERE HE SAT IN THE LOUNGE AND SLEPT. PT REFUSED 12PM VITALS. PT WENT TO PLANNING MEETING THIS MORNING AND LEFT IN THE MIDDLE OF IT. PT HAS BEEN EATING AND TOILETING INDEPENDENTLY. VS ARE STABLE AND DENIES ANY SI/HI TO THIS MHW.
--- NOTE | 2016-12-19 13:45 | SOCIAL WORKER PROG NOTE PSYCH ---
Social Work Progress Note Progress Note Pt was sitting in living room earlier today, he was trying to stay awake. When I met with him later in the day, I reminded him that he should try to attend group, and be a part of the community. Pt states " I just want to rest a little while". I asked him how he was feeling, he said better, I asked him to rate his depression, he said 7 out of 10, 10 being worst. Pt continues to be interested in going to a senior living. Pt laying in bed, and told me he was tired, and closed his eyes. I again, mentioned the importance of contact and sleeping later in the day, in regards to discharge planning.
--- NOTE | 2016-12-19 14:52 | Cons- Neurology ---
General Information and HPI Consulting Request Date of Consult: 12/19/16 Requested By: MARITO GREEN,DEBBIE Reed Reason for Consult: Tremor Source of Information: patient, old records Exam Limitations: poor historian History of Present Illness: This is an 81 year old right handed individual with Bipoar 1 who has been treated over the years with different anti-psychotics (currently on Latuda x 1 year), [facility]. He was noted to have right > left resting tremor and so we were called to assess for potential Parkinson's. He reports the tremor started on the right side 4 years ago and has since moved to include the left side too. He denies any trouble with his voice or swallowing. Admits to instability on his feet but denies falling. Denies trouble smelling or constipation. Allergies/Medications Allergies: Coded Allergies: No Known Allergies (11/30/15) Home Med List: Amlodipine (Norvasc) 2.5 MG TABLET 2.5 MG PO DAILY HIGH BLOOD PRESSURE Aspirin (Ecotrin*) 81 MG TABLET.DR 1 TAB PO DAILY HEART/BLOOD (Reported) Cholecalciferol (Vitamin D3) (Vitamin D) 1,000 UNIT TABLET 1 TAB PO DAILY BONE STRENGTH (Reported) Erythromycin Base (Erythromycin) 5 MG/GRAM (0.5 %) OINT...G. 1 YARELY OPH 4 TIMES /DAY EYE PROBLEMS Lorazepam (Ativan) 0.5 MG TABLET 1 TAB PO BID ANXIETY (Reported) Lurasidone HCl (Latuda) 40 MG TABLET 1 TAB PO QPM SLEEP (Reported) Metoprolol Succ XL (Toprol XL) 25 MG TAB 1 TAB PO DAILY HIGH BLOOD PRESSURE ( Reported) Multivitamin (Multi-Day Vitamins) 1 EACH TABLET 1 TAB PO DAILY HEALTH SUPPLEMENT (Reported) Polyethylene Glycol 3350 (Miralax) 17 GRAM POWD.PACK 1 PAC PO DAILY PRN CONSTIPATION dissolve in water Pravastatin Sodium 40 MG TABLET 1 TAB PO DAILY CHOLESTEROL (Reported) Tamsulosin HCl 0.4 MG CAP.ER.24H 2 CAP PO QPM BPH (Reported) Venlafaxine HCl (Venlafaxine HCl ER) 75 MG CAP.ER.24H 2 CAP PO DAILY MENTAL HEALTH (Reported) Current Medications: Current Medications Sig/Francisca Start time Last Medication Dose Route Stop Time Status Admin Acetaminophen 650 MG Q4P PRN 12/16 1130 AC PO Amlodipine Besylate 2.5 MG DAILY 12/13 1000 AC 12/19 PO 0923 Artificial Tears 2 GTT Q6P PRN 12/12 1400 AC OPH Aspirin Buffered 81 MG DAILY 12/13 1000 AC 12/19 PO 0923 Atorvastatin Calcium 80 MG 1700 12/12 1700 AC 12/18 PO 1718 Docusate Sodium 100 MG DAILY NEEDED PRN 12/12 1400 AC PO Erythromycin 1 YARELY 4 TIMES/DAY 12/12 1400 AC 12/19 OPH 1304 Lurasidone HCl 40 MG DAILY 12/13 1000 AC 12/19 PO 0924 Metoprolol Succinate 25 MG DAILY 12/13 1000 AC 12/19 PO 0923 Tamsulosin HCl 0.8 MG QPM 12/12 2200 AC 12/18 PO 2239 Venlafaxine HCl 150 MG BID@0800,1700 12/15 0800 AC 12/19 PO 0923 Review of Systems Review of Systems: As per HPI otherwise negative. Past History Medical History EENT: SEASONAL ALLERGIES Cardiovascular: hypertension, HIGH CHOLESTEROL Hx 2 stents Respiratory: NONE Gastrointestinal: NONE Hepatic: NONE Renal: chronic kidney disease Musculoskeletal: NONE Psychiatric: anxiety, bipolar disease, depression Endocrine: NONE Blood Disorders: NONE Cancer(s): NONE CEMENT MASON/Reproductive: NONE Surgical History Surgical History: CARDIAC STENT Psychosocial History Where Do You Live? 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 EOMI, LAURA, facial hypomimia otherwise face is symmetric, tongue midling, uvula raises equally in midline, V1-V3 normal sensation, VF intact. TPZ strong. Hearing normal. Strength intact. Clear resting pill rolling tremor R>>L. Sensory intact. Hunched gait, shuffles, reduced arm swing on left. Cogwheeling on right. Last 48 Hours of Lab Results: Laboratory Tests 12/19 617 Chemistry Sodium (137 - 145 mmol/L) 139 Potassium (3.5 - 5.1 mmol/L) 5.2 H Chloride (98 - 107 mmol/L) 105 Carbon Dioxide (22 - 30 mmol/L) 24 Anion Gap (5 - 16) 11 BUN (9 - 20 mg/dL) 39 H Creatinine (0.7 - 1.2 mg/dL) 1.9 H Estimated GFR (>60 ml/min) 34 L BUN/Creatinine Ratio (7 - 25 %) 20.5 Assessment/Plan Assessment: Idiopathic Parkinson's disease - tremor predominant. CKD Recommendations: 1. Will do a trial of low dose Sinemet due to CKD. Start 10/100 PO q4h half hour before meals (about 3-4 times a day, no need for night dose). 2. PT/OT for gait. 3. Swallow evaluation. YC Consult Acknowledgment - Thank you for your consult request.
[2016-12-19 15:58] VITALS: BP 128/58
--- NOTE | 2016-12-19 15:59 | CP SOUTH PROGRESS NOTE PSYCH ---
Psych (Inpt) Progress Note Progress Note Include the following elements, when applicable: Involvement in the active treatment of the patient with behavioral observations of the patient and the patient's response to the treatment. Review of the ongoing treatment process in the context of the treatment plan. Indication of how multi-disciplinary staff members are carrying out the treatment plan. Plans for future interventions and recommendations for revision of the treatment plan. Liaison with other physicians/providers. Progress Note: PSYCHIATRIST NOTE, 12/19/2016: I discussed this patient's slow progress to date, current mental status, treatment and discharge planning with staff team today in the daily morning ITTM and also met with him again myself in individual session. Patient had been seen earlier by neurologic lean process deployment consultant, Dr. Elizabeth, whose impression was of idiopathic parkinson's disease and recommended initiating a low dose of Sinement (100/10 3x /day before meals); patient is in agreement with this though he appears to barely recall that he has been seen by Dr. Elizabeth today; Sinemet therapy will not be initiated until it is clear that patient's conservator is aware of and in agreement with the addition of this medication to his regimen. Patient is feeling more tired today, almost sleepy when I saw him shortly after dinner, and somewhat more gruppy/irritable than when I met with him yesterday, perhaps contributed to by his greater fatigue (and hopefully not by the doubled dose of anti-depressant medication in someone who has been followed as "bipolar" for many years; I plan to reduce the increase in dose of Effexor XR by 50%, from 150mg 2x/day, to 225mg at suppertime only, beginning tomorrow, 12/20/2016, discontinuing an AM dose entirely. Patient appears clear as to his foreknowledge of family's intent for him to be admitted to [facility] in [place], [place] upon discharge from hospital and said he is in agreement with this (though he also has a concervator who will "sign [him] in."
--- NOTE | 2016-12-19 16:42 | SOCIAL WORKER PROG NOTE PSYCH ---
See Addendum Social Work Progress Note Progress Note Called and left a message for daughter Charmaine to introduce myself and provide an update.
--- NOTE | 2016-12-19 18:58 | NUR ---
PT IS CALM, COOPERATIVE WITH STAFF AND PEERS, AND COMPLIANT WITH UNIT RULES. OFTEN OUT OF MILIEU, SPENDING LONG PERIODS OF TIME IN PT ROOM. MOOD IS STABLE, AFFECT APPEARS FLAT/CONSTRICTED, AND APPEARS NORMAL IN ALL RESPECTS, AND APPETITE IS NORMAL. PT DENIES SI AT THIS TIME.
[2016-12-19 19:53] VITALS: BP 109/74
--- NOTE | 2016-12-20 06:36 | NUR ---
PATIENT SLEPT ALL NIGHT.
[2016-12-20 09:50] VITALS: BP 120/57
[2016-12-20 12:29] VITALS: BP 140/86
--- NOTE | 2016-12-20 13:03 | NUR ---
PT HAS BEEN LETHARGIC IN BED. PT DID NOT GET OUT OF BED UNTIL ABOUT 1230. WHEN ASKED WHY PT DID NOT WANT TO GET UP, PT ANSWERED, "I DON'T WANT TO". PT NOTED TO BE INCONTINENT OF SMALL AMOUNT OF FECES. PT UP FOR BATHROOM ONCE. PT OOB ONLY FOR LUNCH AND NOON VITALS. PT DENIES SI AT THIS TIME. PT AFFECT IS FLAT AND PT APPEARS APATHETIC IN GENERAL. PT IS REFUSING GROUPS. VITALS ARE STABLE.
--- NOTE | 2016-12-20 13:21 | NUR ---
MESSAGE LEFT FOR PTS SON AMADOR ANGULO POA. RETURN CALL REQUESTED. CALL PLACED TO INFORM POA OF THE NEED TO START SINEMET
--- NOTE | 2016-12-20 14:01 | NUR ---
Pt's son Mario (POA) called the unit back and confirmed he is in control/charge of finances only, discharge rn contacting Charmaine to discuss Sinemet and if she "okays" it prior to this RN administering, awaiting outcome, Malorie currently talking to Charmaine now.
--- NOTE | 2016-12-20 14:09 | NUR ---
SPOKE WITH PTS DAUGHTER WHO AGREED THAT PT COULD START SINEMET
--- NOTE | 2016-12-20 14:14 | NUR ---
Per randolph "ok" to give/start Sinemet.
--- NOTE | 2016-12-20 15:33 | SOCIAL WORKER PROG NOTE PSYCH ---
Social Work Progress Note Progress Note Called Maryjo at [facility] [phone]. She stated that they are ready to take Farhan whenever we are ready and they have the [facility] approval. I told her that I was not informed that Ascend still needed to be done and if that was the case would they hold the bed during that process? She said the bed would be held. She said she had been working with case management when he was on the medical floor. I told her I would check to see if they started the process. Spoke with Linnette from case management and she informed me that Ascend was approved. She faxed me a copy of the approval letter so I could forward it to [facility]. Called Charmaine (daughter) and informed her that we could plan for him to discharge to [facility] tomorrow. She was happy to hear the news and will pick him up and take him there. Called Maryjo back to inform her we have the [facility] approval and that I would fax it to her. Asked if we could get him there by tomorrow afternoon. She stated she would prefer an 11am admission, but whatever works for everyone is fine. Spoke with Benedict who was resting in bed. He was happy to hear the news that he will be leaving tomorrow and going to [facility]. His only concern today was diahrrea. He shared what he ate for lunch and thanked me for our help. I asked if he had any concerns about adjusting to the detention? He said no and that it will be fine.
[2016-12-20 16:22] VITALS: BP 143/64
--- NOTE | 2016-12-20 16:46 | CP SOUTH PROGRESS NOTE PSYCH ---
Psych (Inpt) Progress Note Progress Note Include the following elements, when applicable: Involvement in the active treatment of the patient with behavioral observations of the patient and the patient's response to the treatment. Review of the ongoing treatment process in the context of the treatment plan. Indication of how multi-disciplinary staff members are carrying out the treatment plan. Plans for future interventions and recommendations for revision of the treatment plan. Liaison with other physicians/providers. Progress Note: PSYCHIATRIST NOTE, 12/20/2016: I discussed this patient's slow progress to date, current mental status, treatment and discharge planning with staff team today in the daily morning ITTM and also met with him again myself in individual session. Though patient appeared somewhat more alert today he complained just as repeatedly as he had yesterday of being "tired...so tired" all day long from morning forward. I had lowered dose of Effexor XR from 300mg to 225mg/day and moved all of the day's dose from 8am to 5pm; I will reduce dose again tomorrow, 12/21/2016, by 37.5mg, down to 187.5mg/day. I noticed that patient is also receiving his daily dose of Latuda in early AM; one of the major side effects of that medication is sedation; patient agreed to my moving Latuda, 40mg, to evenings, starting tomorrow; I hope those changes with help diminish daytime drowsiness/lethargy. Patient told me he is going to [place] tomorrow, 12/21/2016, and feels ready to do so despite tiredness which may actually be contributed to by a paucity of relevant activities and peers to which he might more easily relate here on the [facility] at this time. Patient denies significantly depressed mood or suicidality and is eager to relocate to there as soon as possible; that has also consistently been his family's plan/wish for him as a disposition from hospital.
--- NOTE | 2016-12-20 18:08 | NUR ---
PT IS CALM, COOPERATIVE WITH STAFF AND PEERS, AND COMPLIANT WITH UNIT RULES. SLIGHTLY ISOLATIVE, SPENDING LONG PERIODS IN [place] ROOM SLEEPING. EHEN ENTERING MILIEU PT IS SLIGHTLY WITHDRAWN. MOOD IS STABLE, AFFECT APPEARS FLAT AND CONSTRICTED, COMMUNICATION IS ORGANIZED AND APPEARS NORMAL IN ALL RESPECTS, AND APPETITE IS NORMAL. PT DENIES SI AT THIS TIME.
[2016-12-20 19:45] VITALS: BP 131/77
[2016-12-21 08:26] VITALS: BP 123/85
--- NOTE | 2016-12-21 10:11 | NUR ---
PT IS SCHEDULED FOR DISCHARGE TODAY TO [facility]. PT IS CONSTRICTED IN AFFECT AND HIS MOOD IS CHRONICALLY DEPRESSED. HE DENIES ANY THOUGHTS OF SUICIDE OR SELF HARM AND IS LOOKING FORWARD TO LEAVING THE HOSPITAL AND GOING TO [place]. PT REQUIRES PROMPTING TO ADEQUATELY TEND TO HIS ADLS AND AT TIMES HE REQUIRES ASSISTANCE.PT IS COMPLIANT WITH HIS MED REGIME AND HE IS SLEEPING AND EATING ADEQUATELY. PT IS GIVEN EDUCATION R/T MANAGING HIS MOOD DISORDER.HE IS CALM AND COOPERATIVE AT THIS TIME
--- NOTE | 2016-12-21 10:38 | SOCIAL WORKER PROG NOTE PSYCH ---
Social Work Progress Note Progress Note Called [facility] and left a message for Maryjo confirming an afternoon admission for after 1pm. Called Charmaine Real's daughter and confirmed a 1pm knot picker cloth today. Saw Farhan who was in his room. He asked initially what was for breakfast. It was 10: 10am. I asked if he didn't eat? He didn't seem to remember initially and then said "I think I ate." Nursing confirmed that he ate. I let him know that his daughter will be here at 1pm to pick him up to go to [place]. Nursing came in and informed his that they will assist him in getting ready to go and want to help wash him up. He was agreeable. Charmaine came to pick him up at 1pm. [facility] reqested a letter stating he was not a danger to himself or others, that was signed by the doctor. Dr. Geiger provided this.
[2016-12-21 12:32] VITALS: BP 120/66
[2016-12-21] MEDS ORDERED: EFFEXOR XR75 M1 PO (12:57)
[2016-12-21] MEDS ORDERED: ARTIFICIAL TEA1 EACH OPH (12:58)
[2016-12-21] MEDS ORDERED: CARBIDOPA-LEVO1 EAC6 PO (12:58)
[2016-12-21] MEDS ORDERED: DOCUSATE SODIU100 M3 PO (12:58)
[2016-12-21] MEDS ORDERED: LATUDA40 M1 PO (12:58)
--- NOTE | 2016-12-21 13:14 | CP SOUTH PROGRESS NOTE PSYCH ---
Psych (Inpt) Progress Note Progress Note Include the following elements, when applicable: Involvement in the active treatment of the patient with behavioral observations of the patient and the patient's response to the treatment. Review of the ongoing treatment process in the context of the treatment plan. Indication of how multi-disciplinary staff members are carrying out the treatment plan. Plans for future interventions and recommendations for revision of the treatment plan. Liaison with other physicians/providers. Progress Note: PSYCHIATRIST NOTE (DISCHARGE/TRANSFER TO [facility]), 12/21/2016: I discussed this patient's slow progress to date, current mental status, tretment and discharge plans with staff team today in the daily morning ITTM and also met with him again myself in individual session prior to discharging him for direct transfer via ambulance to the [facility] in [place], [place] today. Patient slept well through the night, assisted once up to the bathroom without incident, was more alert this morning and not irritable, in a better [id number] generally, even able to smile and joke appropriately. He spoke more spontaneously, with less hesitation and more productively/meaningfully, more appropriately and readily responsive to my inquiries as well as asking his own questions; he was interested in me, how I am doing and my own family which impressed me very much. As patient was ambulating out of the door to my office today, I commented again on his improved affect/ mood/presentation; he smiled and retorted with a chuckle, "Yeah, I'm just jumpin ' for gopi today," with obvious playful irony attesting to his significant improvement in cognition over a relatively brief stay in hospital. Patient is currently brighter in affect, euthymic, showing no evidence of suicidal or homicidal ideation, plans, intent or impulses and well aware now of his own safety plan should he ever in future come to believe himself at acute risk of harming himself or others. In addition to continuing psychiatric consultation and medication management/adjustment, patient should be scheduled with a f/u outpatient appointment with neurologist, Dr. Elizabeth, to evaluate the effects of the low dose Sinemet started at his recommendation during this admission (for further details, see Dr. Elizabeth's consultation note in the electronic medical record); it may well be that some of the modest though nonetheless striking improvement in patient's affect and verbal interaction during this admission was contributed to by the initiation of Sinemet. (for all medications prescribed at time of transfer to [place] today, dosages, scheduling, indications, see "Discharge Medications" section of the discharge summary from this admission) (patient does not smoke tobacco or drink alcohol)
[2016-12-21] MEDS ORDERED: ATORVASTATIN CA80 M1 PO (13:16)
--- NOTE | 2016-12-21 16:04 | DISCHARGE SUMMARY REPORT-PSYCH ---
Visit Information Visit Dates/Diagnosis' Admission Date: 12/12/16 Discharge Date: 12/20/16 Reason for Admission: "I wish I could ." Psy Discharge Primary Diag: Unspecified Bipolar Disorder; MRE Depressed Psy Discharge Secondary Diag: hx of CAD; S/P stenting Hypertension Idiopathic Parkinson's Disease with prominent tremor (per Dr. Garnica) Hospital Course Significant Lab Findings: glucose = 127; BUN = 39, creatinine = 1.9, GFR = 34; potassium = 5.2; RBC = 4.15 , HGB = 12.3, HCT = 36.9; urine for drugs of abuse--negative; BHUPENDRA = less than 10.0; for further details of normal range laboratory data for this admission, see the electronic medical record (also see laboratory data from medical admission of 12/05-12/12/2016 immediately preceding transfer to [facility]) Course Complications: none Consultations: patient was seen for an admission medical H&P by Whitley Brewer M.D., and followed medically during this admission by the hospitalist staff/[facility] medical attending physicians; patient was also seen in neurologic consultation by Quentin Garnica M.D., whose impression was of idiopathic parkinson's disease and recommended starting a low dose of Sinemet during this admission ( for further details, see Dr. Garnica's consult note in the electronic medical record; see also discharge summary from medical admission of 12/05-12/12/2016 immediately prior to transfer to [facility] Allergies: Coded Allergies: No Known Allergies (11/30/15) Hospital Course/TX Response: (see also, all initial/admission assessments and daily MDavon/INSURANCE LEGAL ASSISTANT and GAS APPLIANCE ADJUSTER progress notes contained in the electronic medical record) Patient remembered me from [facility] in 2009 and having done well at that time but said a stroke "1-xjk-z-half years after that really set things back..." He seemed somewhat less confused than he has been described at times but some of his increased disorientation and mental lapses may be aggrevated by "sundowning " during the evening/night hours. Nonetheless, he was intermittently obscure and/or bizarre in expressed thinking, once referring to some relatives as "hamburgers" and did not appear to be clear with the apparent family plan to have him enter [facility] following inpatient discharge. His daughter is apparently overwhelmed with his care needs and both she and her feel they "can no longer take care of him at home." Patient was pleasant throughout our discussion and thanked me sincerely for my time and attention at its conclusion. Patient denied any problems/side effects on the increased dose of Effexor-XR (up from 150mg to 300mg/day thus far during this admission). Discharge HBIPS - Tobacco Use Treatment Offered Post DC Medications Offered: Not Applicable Post DC Tobacco Treatment Plan: Not Applicable - EtOH/Drug Use D/O Treatment Offered Post DC Medications Offered: NA-No EtOH/Drug Use D/O Post DC EtOH/SubAbuse TX Plan: NA-No EtOH/Drug Use D/O Metabolic Screening - Screen if on a Neuroleptic Medication - Metabolic screening should include: - Blood Pressure, BMI, Glucose or Hgb A1c, & a - Lipid profile from within the past 365 days. Metabolic Screening ([x]) Not Applicable, patient not on a neuroleptic. OR () Patient on a neuroleptic(s) . Enter below results for Glucose or Hemoglobin A1C, and lipid panel if obtained during the last 365 days. BMI: 29.100 Blood Pressure: 120/66 Laboratory Results (If applicable): Discharge Instructions General Discharge Information Discharge Medications: At the time of discharge to [facility] in [place], on 12/21/2016, patient was prescribed: Effexor XR, 187.5mg daily at 5pm (anti-depressant) Latuda, 40mg daily every evening (for bipolar depression) and: Sinemet, 10/100mg 3x/day, 7:30am, 11:30am and 4:30pm (for symptoms of parkinsonism) (recommended during this admission by neurologic educational consultant, Dr. Quentin Garnica) Toprol XL, 25mg daily in AM (for blood pressure control/managment) Norvasc, 2.5mg daily in AM (for blood pressure) Ecotrin, 81mg daily in AM (for heart health) Lipitor, 80mg daily at 5pm (to lower/control lipids) Flomax, 0.8mg nightly (to promote urinary flow/prostate health) erythromycin eye ointment, apply to both eyes 4x/day (for eye health) (patient neither smokes tobacco nor drinks alcohol) Multiple Neuroleptics: ([x]) Not Applicable OR Document below three failed attempts at monotherapy, or a plan to taper to monotherapy, or augmentation of Clozapine. () Patient's Diet: heart healthy Patient's Activity: per staff and medical attendings at [facility] Disposition: direct transfer to [facility] ([facility] care [facility] rehab)[place], [place]. Recommendations: Patient should have a f/u appointment scheduled with neurologist, Quentin Garnica M.D., to evaluate the effects of recently initiated (at Dr. Garnica's recommendation) trial of low dose Sinemet. The effects of the small increase in dose of Effexor XR (from 150mg to 187.5mg/day) during this admission should be evaluated over the next 4-6 weeks. Referred To: patient was referred directly to [facility] with recommendation for ongoing evaluation and treatment by their medical attendings and psychiatric consulting staff Copies To: VANITA GARNICA MD; [facility]
== END 2016-12-21 14:00 | DRG 885 ==
LOC: CP SOUTH 12:01
PROVIDERS: ADMIT Psychiatry & Neurology Psychiatry
DX: F31.9 Bipolar disorder, unspecified (principal); G20 Parkinson's disease; I25.10 Atherosclerotic heart disease of native coronary artery without angina pectoris; I10 Essential (primary) hypertension
CPT/HCPCS: 36415; 82436; 87086